=== PATIENT | male | born 2000 | race Caucasian/White ===

== ENCOUNTER 2023-02-23 19:51 | Inpatient (IN) | payer BC, SELFPAY ==
[2023-02-23 20:02] VITALS: BP 140/92; PULSE 83; RESP 16; TEMP 36.8; O2SAT 98; BMI 26.5
--- NOTE | 2023-02-23 20:14 | ED.GENADULT ---
HPI - General Adult General Chief complaint: Psychiatric Symptoms Stated complaint: psych eval Time Seen by Provider: 02/23/23 20:14 Source: patient and family (patient's parents) Mode of arrival: ambulatory Limitations: no limitations History of Present Illness HPI narrative: Patient is a 22 year old assigned male at with a history of previously diagnosed ADHD and anxiety presenting to the emergency department today with inability to sleep and new hallucinations. Patient states that over the last few months he has had significantly more hallucinations and has not been able to sleep at all. Patient's parents state that the patient has been experiencing episodes of very high highs and very low lows. Patient's parents state that the patient has previously had prozac and concerta but neither of those helped him. Patient denies any SI/HI, dizziness, lightheadedness, abdominal pain, nausea, vomiting, fever, chills, blurry vision, double vision, loss of vision, chest pain, difficulty breathing, shortness of breath, back pain, night sweats, pain with urination, increased urinary frequency, increased urinary urgency, blood in his urine or stool, syncope or a near syncopal episode, recent trauma or falls, bowel incontinence, bladder incontinence, bowel retention, bladder retention, or any other complaints at this time. Onset (ago): month(s) Relieving factors: none Exacerbating factors: none Associated symptoms: denies other symptoms Treatments prior to arrival: none Related Data Allergies Allergy/AdvReac Type Severity Reaction Status Date / Time No Known Allergies Allergy Unverified 05/25/20 17:19 Review of Systems Constitutional: Constitutional: Reports no additional constitutional complaints, Denies chills, Denies fever(s) and Denies night sweats Eyes: Eyes: Reports no additional eye complaints, Denies blurry vision, Denies change in vision, Denies diplopia, Denies eye discharge, Denies loss of vision and Denies eye pain ENT: Denies dizziness Cardiovascular: Cardiovascular: Reports no additional cardiovascular complaints, Denies chest pain, Denies lightheadedness, Denies Loss of Consciousness and Denies dyspnea Respiratory: Respiratory: Reports no additional respiratory complaints and Denies dyspnea Gastrointestinal: Gastrointestinal: Reports no additional gastrointestinal complaints, Denies abdominal pain, Denies melena, Denies hematochezia, Denies change in bowel habits and Denies change in stool character Genitourinary: Genitourinary: Reports no additional male genitourinary complaints, Denies hematuria, Denies oliguria, Denies difficulty urinating, Denies dysuria, Denies urinary frequency, Denies urinary hesitancy, Denies urinary incontinence and Denies urinary urgency Musculoskeletal: Musculoskeletal: Reports no additional musculoskeletal complaints, Denies numbness and Denies tingling Neurologic: Denies dizziness, Denies loss of vision, Denies numbness and Denies tingling Psychiatric: Psychiatric: Reports no additional psychiatric complaints, Reports abnormal sleep pattern, Reports anxiety, Reports difficulty concentrating, Reports auditory hallucinations, Reports mood swings, Reports visual hallucinations, Denies homicidal ideation and Denies suicidal ideation Endocrine: Endocrine: Reports no additional endocrine complaints Hematologic/Lymphatic: Hematologic/Lymphatic: Reports no additional hematologic/lymphatic complaints Allergic/Immunologic: Allergic/Immunologic: Reports no additional allergic/immunologic complaints PMFSH Past Medical History Attestation statement: The following information was validated with the patient. (all information validated with the patient's parents) Source: old records reviewed, obtained from family (patient's parents) and nursing notes reviewed Social History Social History Alcohol intake: never Smoked in Last 30 Days: No Use of substances other than those prescribed or required for medical reasons: No Advance Directives: No Advance Directives Information Provided: No Physical Exam ED Vital Signs: Vital Signs - 24 hr 02/23/23 20:02 Temperature 98.3 F Pulse Rate 83 Respiratory Rate 16 Blood Pressure 140/92 H Pulse Oximetry 98 Oxygen Delivery Method Room Air BMI result Body Mass Index 26.5 Const General: cooperative, no acute distress, alert and awake Nutritional Appearance: well nourished Orientation/consciousness: patient oriented x3 Limitations: no limitations [facility] Head: Yes normal to inspection and Yes atraumatic Ears: hearing grossly normal bilaterally and external ears normal General nose exam: Normal external nose present, no nasal discharge noted and no epistaxis Face and sinus: Yes normal facial exam, No abrasion and No laceration Mouth: Normal oral and palatal mucosa present, no drooling and no muffled voice Eyes General: appearance normal, both eyes and all related structures Periorbital: periorbital findings normal Eyelids: Yes eyelids normal Conjunctivae: conjunctivae normal Pupils: Equal, round and reactive pupils present EOM: EOMs intact bilaterally Neck Neck: Yes normal visual inspection, Yes full ROM and Yes no lymphadenopathy Chest Chest palpation & inspection: normal inspection of the chest Resp Effort & Inspection: normal respiratory effort and able to speak in complete sentences GI Inspection: Yes normal to inspection Neuro General: patient oriented x3 and moves all extremities Cranial nerves: Yes Equal, round and reactive pupils present Cognition (Neuro): normal cognition Motor exam (neuro): 5/5 motor strength present throughout Sensory Exam: Normal double simultaneous stimulation for sensation Coordination: [id number] test normal Extrem General: Yes normal to inspection, Yes full ROM and Yes capillary refill normal Psych Appearance: grossly normal Mental Status: mental status grossly normal Affect: normal affect Attitude: cooperative Thought process: Normal thought process present Thought content: Normal thought content present Insight: Good insight present (Psych) Medical Decision Making Medical Decision Making MDM Narrative: Patient is a 22 year old assigned male at with a history of anxiety and ADHD presenting to the emergency department today with new onset hallucinations. Patient's physical exam was as noted in the physical exam portion of this chart. Patient's blood work was unremarkable. Patient's EKG was unremarkable. I explained my physical exam findings as well as all test results to the patient. I answered all questions asked by the patient. Patient is currently awaiting CARE team evaluation. Differential Diagnosis Differential Diagnoses: The differential diagnosis associated with the presentation includes bipolar disorder, psychosis Admission/Observation Consideration of admission/observation: Escalation of care including admission/observation considered Patient's admission or lack there of will be determined after CARE team evaluates him. Lab Data [facility] Lab Attestation statement: I reviewed the patient's lab results. My interpretation of these studies and their corresponding values is that they are grossly normal. 02/23/23 20:37 02/23/23 20:37 Labs: Lab Results 02/23/23 02/23/23 02/23/23 Range/Units 20:37 20:37 20:37 WBC 8.7 (4.8-10.8) X10*3/uL RBC 5.88 H (4.60-5.80) X10*6/uL Hgb 14.4 (14.0-18.0) g/dl Hct 41.2 L (42.0-52.0) % MCV 70.1 L (80.0-98.0) fL MCH 24.5 L (27.0-33.0) pg MCHC 35.0 (31.0-36.0) g/dl RDW 13.9 (11.0-16.0) % Plt Count 366 (160-400) X10*3/uL MPV 9.5 (9.4-12.4) fL Immature Gran % (Auto) 0.2 (0.0-0.4) % Neut % (Auto) 64.1 (45-73) % Lymph % (Auto) 27.1 (20-40) % [place] % (Auto) 6.6 (2-11) % Eos % (Auto) 1.0 (0-4) % Baso % (Auto) 1.0 (0-2) % Lymph # (Auto) 2.3 (1.2-4.9) X10*3/uL [place] # (Auto) 0.6 (0.1-1.2) X10*3/uL Eos # (Auto) 0.1 (0.0-0.4) X10*3/uL Baso # (Auto) 0.1 (0.0-0.2) X10*3/uL Abs Immat Gran (auto) 0.02 (0.00-0.03) X10*3/uL Absolute Neuts (auto) 5.5 (2.0-8.3) x10*3/uL Absolute Nucleated RBC 0.000 (0.0-0.012) X10*3/uL Nucleated RBC % (auto) 0.0 (0.0-0.2) /100WBC Sodium 140 (135-145) mmol/L Potassium 3.7 (3.3-5.1) mmol/L Chloride 106 (96-108) mmol/L Carbon Dioxide 23 (22-29) mmol/L Anion Gap 15 (12-20) BUN 9 (9-16) mg/dL Creatinine 0.86 (0.5-1.4) mg/dL Estim Creat Clear Calc 122.6 Estimated GFR > 60 Random Glucose 93 (60-115) mg/dL Calcium 10.0 (8.4-10.2) mg/dL Total Bilirubin 0.8 (0.0-1.0) mg/dL AST 21 (5-37) U/L ALT 18 (0-40) U/L Alkaline Phosphatase 80 (39-117) U/L Total Protein 7.7 (6.5-8.0) g/dL Albumin 4.6 (3.5-5.0) g/dL Urine Color Urine Appearance Urine pH (5.0-9.0) Ur Specific [place] (1.005-1.025) Urine Protein (Neg-Trace) mg/dL Urine Glucose (UA) (Negative) mg/dL Urine Ketones (Negative) mg/dL Urine Blood (Negative) Urine Nitrite (Negative) Ur Leukocyte Esterase (Negative) Salicylates < 5.0 L (15-30) mg/dL Urine Opiates Screen (Not Detect) Urine Fentanyl Screen (Not Detect) Acetaminophen < 17 (<30) mcg/mL Ur Barbiturates Screen (Not Detect) Ur Phencyclidine Scrn (Not Detect) Ur Amphetamines Screen (Not Detect) U Benzodiazepines Scrn (Not Detect) Urine Cocaine Screen (Not Detect) U Marijuana (THC) Screen (Not Detect) Ethyl Alcohol < 10 mg/dL 02/23/23 02/23/23 Range/Units 22:38 22:38 WBC (4.8-10.8) X10*3/uL RBC (4.60-5.80) X10*6/uL Hgb (14.0-18.0) g/dl Hct (42.0-52.0) % MCV (80.0-98.0) fL MCH (27.0-33.0) pg MCHC (31.0-36.0) g/dl RDW (11.0-16.0) % Plt Count (160-400) X10*3/uL MPV (9.4-12.4) fL Immature Gran % (Auto) (0.0-0.4) % Neut % (Auto) (45-73) % Lymph % (Auto) (20-40) % [place] % (Auto) (2-11) % Eos % (Auto) (0-4) % Baso % (Auto) (0-2) % Lymph # (Auto) (1.2-4.9) X10*3/uL [place] # (Auto) (0.1-1.2) X10*3/uL Eos # (Auto) (0.0-0.4) X10*3/uL Baso # (Auto) (0.0-0.2) X10*3/uL Abs Immat Gran (auto) (0.00-0.03) X10*3/uL Absolute Neuts (auto) (2.0-8.3) x10*3/uL Absolute Nucleated RBC (0.0-0.012) X10*3/uL Nucleated RBC % (auto) (0.0-0.2) /100WBC Sodium (135-145) mmol/L Potassium (3.3-5.1) mmol/L Chloride (96-108) mmol/L Carbon Dioxide (22-29) mmol/L Anion Gap (12-20) BUN (9-16) mg/dL Creatinine (0.5-1.4) mg/dL Estim Creat Clear Calc Estimated GFR Random Glucose (60-115) mg/dL Calcium (8.4-10.2) mg/dL Total Bilirubin (0.0-1.0) mg/dL AST (5-37) U/L ALT (0-40) U/L Alkaline Phosphatase (39-117) U/L Total Protein (6.5-8.0) g/dL Albumin (3.5-5.0) g/dL Urine Color Yellow Urine Appearance Clear Urine pH 5.5 (5.0-9.0) Ur Specific [place] 1.025 (1.005-1.025) Urine Protein Negative (Neg-Trace) mg/dL Urine Glucose (UA) Negative (Negative) mg/dL Urine Ketones Negative (Negative) mg/dL Urine Blood Negative (Negative) Urine Nitrite Negative (Negative) Ur Leukocyte Esterase Negative (Negative) Salicylates (15-30) mg/dL Urine Opiates Screen Not Detected (Not Detect) Urine Fentanyl Screen Not Detected (Not Detect) Acetaminophen (<30) mcg/mL Ur Barbiturates Screen Not Detected (Not Detect) Ur Phencyclidine Scrn Not Detected (Not Detect) Ur Amphetamines Screen Not Detected (Not Detect) U Benzodiazepines Scrn Not Detected (Not Detect) Urine Cocaine Screen Not Detected (Not Detect) U Marijuana (THC) Screen Not Detected (Not Detect) Ethyl Alcohol mg/dL Independent Interpretation I performed an independent interpretation of an: EKG Interpretation: Vent. Rate: 062 BPM ? ? Atrial Rate: 062 BPM P-R Int: 156 ms? QRS Dur: 086 ms QT Int: 398 ms ? ? ? P-R-T Axes: 064 057 031 degrees QTc Int: 403 ms ? Normal sinus rhythm ST elevation, consider early repolarization Borderline ECG No previous ECGs available DD/ [id number] Independent Historian Clinical information obtained from an independent historian. History obtained from or confirmed by: Parent (patient's parents provided additional history and confirmed the history provided by the patient) Critical Care Time Critical Care Time Critical Care Time: Yes Total Critical Care Time: 30 Attestation: I spent 30 minutes of Critical Care Time with this patient. This does not include time spent on separately reported billable procedures. Discharge Plan Discharge Clinical Impression: Acute psychosis Patient Disposition: Still a Patient Interventions: [place]-Suicide Risk Severity Scale Last Done: 02/23/23 21:33
--- OUTSIDE RECORDS SUMMARY | 2023-02-23 20:32 | XMS_ITS | Continuity of Care Document ---
Author Name Unknown Organization [facility] Address [address] [place] [id number]- Care Team Providers Care Assistant Professor Of Nursing Name Role Phone Tammy Emanuel MD Primary Care Physician [phone] Encounter [facility] Date(s): 06/17/22 - 07/17/[address] [address]- Attending Physician: Admtr, Lauren Admitting Physician: Admtr, Ar8 Referring Physician: Admtr, Ar8 Allergies, Adverse Reactions, Alerts No Known Allergies Medications Advil PM 2 tablet, By Mouth, Daily at bedtime, PRN as needed for insomnia, 0 Refills, Maintenance, 07/12/19 13:11:55 EST Start Date: 07/12/19 Status: Ordered Concerta 36 mg oral tablet, extended release 1 tablet = 36 mg, By Mouth, Daily in AM, # 30 tablet, 0 Refills, Maintenance, 08/12/19 10:41:47 EST, ER Tablet, 165, cm, 07/26/19 12:52:44 EST, Height, 73.3, kg, 01/30/18 11:53:15 EDT, Dry Weight Start Date: 08/12/19 Status: Ordered FLUoxetine 10 mg oral tablet 1 tablet = 10 mg, By Mouth, Daily, Take with 20mg tab for total dose of 30mg daily, # 30 tablet, 0 Refills, Maintenance, 08/12/19 9:15:25 EST, Tablet, 165, cm, 07/26/19 12:52:44 EST, Height, 73.3, kg, 01/30/18 11:53:15 EDT, Dry Weight Start Date: 08/12/19 Status: Ordered FLUoxetine 20 mg oral tablet 1 tablet = 20 mg, By Mouth, Daily, take with 10mg tab for total dose of 30mg, # 30 tablet, 0 Refills, Maintenance, 08/12/19 9:17:50 EST, 165, cm, 07/26/19 12:52:44 EST, Height, 73.3, kg, 01/30/18 11:53:15 EDT, Dry Weight Start Date: 08/12/19 Status: Ordered Melatonin 5 mg oral tablet 1 tablet = 5 mg, By Mouth, Daily at bedtime, PRN for insomnia, # 60 tablet, 0 Refills, Maintenance,07/12/19 13:11:30 EST, Tablet Start Date: 07/12/19 Status: Ordered Patient Care team information Care Team Personnel Name: Jenae SOLORIO, Tammy Hutchinson Position: [facility] General Pediatrics MD Member Role: PCP Address: Address: [address] [place] [address] Pediatrics, [place] [address]- Care Team Related Persons Name: LUIZ RANDOLPH Address: home [address] [place] [id number] Name: LUIS CARLOS RANDOLPH Address: home [address] [place] [id number]
--- OUTSIDE RECORDS SUMMARY | 2023-02-23 20:32 | XMS_ITS | Continuity of Care Document ---
Author Name Unknown Organization [facility] Address [address] [place] [id number]- Care Team Providers Care Industrial Machinery Mechanic Name Role Phone Jenae SOLORIO, Tammy Hutchinson Primary Care Physician Encounter [facility] ACCT R [id number] Date(s): 08/24/19 - 09/29/[address] [address]- [facility] Attending Physician: Dylon Gonzales MD Admitting Physician: Dylon Gonzales MD Referring Physician: Harinder Gonzales MD Allergies, Adverse Reactions, Alerts Substance Reaction Severity Status NKA Active Medications Advil PM 2 tablet, By Mouth, [...]
--- OUTSIDE RECORDS SUMMARY | 2023-02-23 20:32 | XMS_ITS | Continuity of Care Document ---
Author Name Unknown Organization [facility] ion Address [address] [place] [address]- Care Team Providers Care Co Op Name Role Phone Tammy Emanuel MD Primary Care Physician Encounter [facility] Date(s): 08/02/22 - 09/01/[address] [address] Attending Physician: Admrosanna, Lauren Admitting Physician: Admtr, Ar8 Referring Physician: [...] Personnel Name: Jenae SOLORIO, Tammy Hutchinson Position: [facility] General Pediatrics MD Member Role: PCP Address: Address: [address] [place] [address] Pediatrics, [place] [address]- Care Team Related Persons Name: LUIZ RANDOLPH Address: home [address] [place] [id number] Name: LUIS CARLOS RANDOLPH Address: home [address] [place] [id number]
[2023-02-23 20:41] LABS: MANUAL DIFF FLAG NO
[2023-02-23 20:43] LABS: Basophils Absolute Auto 0.1 X10*3/uL (0.0-0.2); Eosinophils Absolute Auto 0.1 X10*3/uL (0.0-0.4); Hematocrit 41.2 % (42.0-52.0); Hemoglobin 14.4 g/dl (14.0-18.0); Imm Gran Abs Auto 0.02 X10*3/uL (0.00-0.03); Imm Gran Pct Auto 0.2 % (0.0-0.4); Lymphocytes Absolute Auto 2.3 X10*3/uL (1.2-4.9); Lymphocytes Percent Auto 27.1 % (20-40); Mean Corpuscular Hemoglobin 24.5 pg (27.0-33.0); Mean Corpuscular Volume 70.1 fL (80.0-98.0); Mean Platelet Volume 9.5 fL (9.4-12.4); Monocytes Absolute Auto 0.6 X10*3/uL (0.1-1.2); Monocytes Percent Auto 6.6 % (2-11); Neutrophils Absolute Auto 5.5 x10*3/uL (2.0-8.3); Neutrophils Percent Auto 64.1 % (45-73); Platelet Count 366 X10*3/uL (160-400); Red Blood Count 5.88 X10*6/uL (4.60-5.80); Red Cell Distribution Width 13.9 % (11.0-16.0); White Blood Count 8.7 X10*3/uL (4.8-10.8)
[2023-02-23 21:11] LABS: Alanine Aminotransferase 18 U/L (0-40); Albumin Level 4.6 g/dL (3.5-5.0); Alkaline Phosphatase 80 U/L (39-117); Anion Gap 15 (12-20); Aspartate Amino Transferase 21 U/L (5-37); Bilirubin Total 0.8 mg/dL (0.0-1.0); Blood Urea Nitrogen 9 mg/dL (9-16); Carbon Dioxide 23 mmol/L (22-29); Chloride 106 mmol/L (96-108); Creatinine Clr Calc Pharmacy 122.6; Estimated Glomerular Filt Rate > 60; Glucose Random 93 mg/dL (60-115); Potassium 3.7 mmol/L (3.3-5.1); Sodium 140 mmol/L (135-145); Total Protein 7.7 g/dL (6.5-8.0)
[2023-02-23 21:17] LABS: Acetaminophen LAB < 17 mcg/mL (<30); Ethanol < 10 mg/dL; Salicylate < 5.0 mg/dL (15-30)
--- NOTE | 2023-02-23 21:18 | ECG_ITS ---
Test Reason : med clearance Blood Pressure : / mmHG Vent. Rate : 062 BPM Atrial Rate : 062 BPM P-R Int : 156 ms QRS Dur : 086 ms QT Int : 398 ms P-R-T Axes : 064 057 031 degrees QTc Int : 403 ms Normal sinus rhythm ST elevation, consider early repolarization Borderline ECG No previous ECGs available Referred By: Vanessa Sanchez Electronically Signed By:DALLAS RENDON
[2023-02-23 22:46] LABS: Appearance Urine Clear; Color Urine Yellow; Glucose Urine UA Negative (Negative); Leukocyte Esterase Urine Negative (Negative); Nitrite Urine Negative (Negative); PH 5.5 (5.0-9.0); Specific Gravity - Urine 1.025 (1.005-1.025); Urine Blood Negative (Negative); Urine Ketones Negative (Negative); Urine Protein Negative (Neg-Trace)
[2023-02-23 22:56] LABS: Amphetamine Screen Urine Not Detected (Not Detect); Barbiturates, Urine Not Detected (Not Detect); Benzodiazepines Screen Urine Not Detected (Not Detect); Cannabinoid Screen Urine Not Detected (Not Detect); Cocaine Screen Urine Not Detected (Not Detect); Fentanyl, urine Not Detected (Not Detect); Opiate Screen Urine Not Detected (Not Detect); Phencyclidine Screen Urine Not Detected (Not Detect)
[2023-02-24 02:56] VITALS: BP 144/95; PULSE 72; TEMP 36.5; O2SAT 99
[2023-02-24 06:00] VITALS: BP 108/67; PULSE 66; RESP 16; TEMP 36.8; O2SAT 97
[2023-02-24 07:13] VITALS: BP 155/86; PULSE 95; RESP 14; TEMP 36.4; O2SAT 96
--- NOTE | 2023-02-24 07:53 | PHA.MEDREC ---
Pharmacy Consult ? Medication Reconciliation Pharmacy has completed the medication reconciliation. completed by rn reviewed by pharmacy kalyn
[2023-02-24] MEDS: FLUoxetine HCl 20 MG CAPSULE PO (09:15)
[2023-02-24 12:06] LABS: COVID-19 Test Negative (Negative); IDNOW Serial# 08D9AD1C
[2023-02-24 12:30] LABS: Iron 71 mcg/dL (45-160); Percent Iron Saturation 19 % (15-50); Total Iron Binding Capacity 381 mcg/dL (228-428); Unsaturated Iron Binding 310 ug/dL
[2023-02-24 12:57] LABS: Folate 16.2 ng/mL (> or = 4.0); Vitamin B12 1244 pg/mL (200-900)
--- NOTE | 2023-02-24 14:29 | MHC.CARE ---
Pt seen by CARE team and was found to meet inpatient level of care.
[2023-02-24 14:47] VITALS: BP 129/88; PULSE 83; RESP 12; O2SAT 96
[2023-02-24 16:32] VITALS: BP 157/94; PULSE 74; TEMP 36.6; O2SAT 97
--- NOTE | 2023-02-24 17:24 | PC.ADMIT ---
Pt is a 22 year old male presenting to [facility] ED after self presenting with parents. Pt reporting anxiety, panic attacks, racing thoughts, AH/VH. Pt reports prior diagnoses of bipolar disorder, depression, anxiety, ADHD. Pt is looking to get a proper diagnosis for what is going on. Pt states his body feels fine but his head mentally feels off. Pt UTOX negative and COVID negative. Pt wears a cochlear implant on the left side. Pt reports a history of past SI attempts back in 8th or 9th grade. Pt presents as calm, cooperative and pleasant, but a little confused. Pt is anxious and depressed. Pt is on 15 minute checks. Pt reports feeling safe on the unit and can come to staff for help if needed. Provider aware of admission, orders are placed. Begin treatment plan and monitor for safety.
[2023-02-25] MEDS: hydrOXYzine HCL 25 MG TABLET PO (05:28)
[2023-02-25 09:04] LABS: Estimated Average Glucose 88 mg/dL; Hemoglobin A1c % 4.7 %
[2023-02-25 09:23] VITALS: BP 145/92; PULSE 97; TEMP 36.7; O2SAT 96
[2023-02-25 09:28] LABS: Alanine Aminotransferase 17 U/L (0-40); Albumin Level 4.3 g/dL (3.5-5.0); Alkaline Phosphatase 76 U/L (39-117); Anion Gap 11 (12-20); Aspartate Amino Transferase 18 U/L (5-37); Bilirubin Total 0.6 mg/dL (0.0-1.0); Blood Urea Nitrogen 9 mg/dL (9-16); Calcium 9.5 mg/dL (8.4-10.2); Carbon Dioxide 26 mmol/L (22-29); Chloride 106 mmol/L (96-108); Cholesterol 136 mg/dL; Creatinine Clr Calc Pharmacy 128.5; Estimated Glomerular Filt Rate > 60; Glucose Fasting 90 mg/dL (60-99); HDL Cholesterol 46 mg/dL; LDL Cholesterol Calculated 80 mg/dl; Potassium 4.3 mmol/L (3.3-5.1); Sodium 139 mmol/L (135-145); Total Protein 7.2 g/dL (6.5-8.0); Triglycerides 51 mg/dL
[2023-02-25 09:43] LABS: Free T4 (Free Thyroxine) 1.25 ng/dL (0.71-1.85); Thyroid Stimulating Hormone 1.35 uIU/mL (0.32-4.0)
--- NOTE | 2023-02-25 09:47 | P.HPPS_ITS ---
HPI Date of Service: 02/25/23 Chief Complaint: Psychosis Sources of Information: patient interviewed, chart reviewed and crisis/core team assessment reviewed Additional Sources of Information: Elena [phone] HPI Subjective Notes: Rodriguez Warning (shows understanding) and Conditional Voluntary Narrative: Mr. Baeza is a 22 year-old male who was brought to [facility] by parents as pt has not been sleeping for several weeks, reporting hearing voices, preoccupied with christianity themes and reporting he has received messages from [employer]. In the ED, his utox is negative. On the unit, pt presents as cooperative. Pt's initially kept repeating, it's okay now, I'm fine, I presented the case to them, and they agree, is not devil who is in charge, is Dot. When asked to elaborate, pt needed redirection to stay on track. Pt reports around December 31 he has been receiving messages from [employer] He also reports he was hearing voices from demons who were confusing him. He reports last night he almost and this was a test. He reports his brain shut off and his heart stopped beating. He also reports back pain which he thinks is also part of [employer]'s message. He reports he has to baptize as Jehovah witness and all evil and the devil will . He states [employer] anointed him savior. He denies suicidal or homicidal ideation. When asked directly he denies hearing voices but appears internally preoccupied. He denies hx of suicide attempts. Past Psychiatric History: Inpatient: none OP: none Past medication trials: ritalin and prozac, no prior tx for psychosis as this is first time. Hx of suicide attempt: denies Medical Evaluation Reviewed: Yes [facility] Family History: maternal hx of bipolar and paternal hx of schizophrenia. Social History: Pt lives with parents. He works 3rd shift. Finished HS. Substance History: Denies Trauma History: denies Diagnostics Vital Signs (24Hr): Vital Signs - 24 hr 02/24/23 14:47 02/24/23 16:32 02/25/23 09:23 Temperature 97.9 F 98.1 F Pulse Rate 83 74 97 Respiratory Rate 12 Blood Pressure 129/88 157/94 H 145/92 H Pulse Oximetry 96 97 96 Oxygen Delivery Method Room Air Room Air Room Air BMI result Body Mass Index 26.5 Labs 02/23/23 20:37 02/25/23 08:43 Labs: Laboratory Results - last 48 hr 02/23/23 02/23/23 02/23/23 20:37 20:37 20:37 WBC 8.7 RBC 5.88 H Hgb 14.4 Hct 41.2 L MCV 70.1 L MCH 24.5 L MCHC 35.0 RDW 13.9 Plt Count 366 MPV 9.5 Immature Gran % (Auto) 0.2 Neut % (Auto) 64.1 Lymph % (Auto) 27.1 Trinity % (Auto) 6.6 Eos % (Auto) 1.0 Baso % (Auto) 1.0 Lymph # (Auto) 2.3 Trinity # (Auto) 0.6 Eos # (Auto) 0.1 Baso # (Auto) 0.1 Abs Immat Gran (auto) 0.02 Absolute Neuts (auto) 5.5 Absolute Nucleated RBC 0.000 Nucleated RBC % (auto) 0.0 Sodium 140 Potassium 3.7 Chloride 106 Carbon Dioxide 23 Anion Gap 15 BUN 9 Creatinine 0.86 Estim Creat Clear Calc 122.6 Estimated GFR > 60 Random Glucose 93 Fasting Glucose Estimat Average Glucose Hemoglobin A1c % Calcium 10.0 Iron TIBC % Saturation Unsat Iron Binding Total Bilirubin 0.8 AST 21 ALT 18 Alkaline Phosphatase 80 Total Protein 7.7 Albumin 4.6 Triglycerides Cholesterol LDL Cholesterol, Calc HDL Cholesterol Vitamin B12 Folate TSH Free T4 Urine Color Urine Appearance Urine pH Ur Specific [place] Urine Protein Urine Glucose (UA) Urine Ketones Urine Blood Urine Nitrite Ur Leukocyte Esterase Salicylates < 5.0 L Urine Opiates Screen Urine Fentanyl Screen Acetaminophen < 17 Ur Barbiturates Screen Ur Phencyclidine Scrn Ur Amphetamines Screen U Benzodiazepines Scrn Urine Cocaine Screen U Marijuana (THC) Screen Ethyl Alcohol < 10 COVID-19 ([facility]) COVID-19 Clin Com 02/23/23 02/23/23 02/24/23 22:38 22:38 11:32 WBC RBC Hgb Hct MCV MCH MCHC RDW Plt Count MPV Immature Gran % (Auto) Neut % (Auto) Lymph % (Auto) Trinity % (Auto) Eos % (Auto) Baso % (Auto) Lymph # (Auto) Trinity # (Auto) Eos # (Auto) Baso # (Auto) Abs Immat Gran (auto) Absolute Neuts (auto) Absolute Nucleated RBC Nucleated RBC % (auto) Sodium Potassium Chloride Carbon Dioxide Anion Gap BUN Creatinine Estim Creat Clear Calc Estimated GFR Random Glucose Fasting Glucose Estimat Average Glucose Hemoglobin A1c % Calcium Iron TIBC % Saturation Unsat Iron Binding Total Bilirubin AST ALT Alkaline Phosphatase Total Protein Albumin Triglycerides Cholesterol LDL Cholesterol, Calc HDL Cholesterol Vitamin B12 Folate TSH Free T4 Urine Color Yellow Urine Appearance Clear Urine pH 5.5 Ur Specific [place] 1.025 Urine Protein Negative Urine Glucose (UA) Negative Urine Ketones Negative Urine Blood Negative Urine Nitrite Negative Ur Leukocyte Esterase Negative Salicylates Urine Opiates Screen Not Detected Urine Fentanyl Screen Not Detected Acetaminophen Ur Barbiturates Screen Not Detected Ur Phencyclidine Scrn Not Detected Ur Amphetamines Screen Not Detected U Benzodiazepines Scrn Not Detected Urine Cocaine Screen Not Detected U Marijuana (THC) Screen Not Detected Ethyl Alcohol COVID-19 ([facility]ARJIT) Negative COVID-[employer] Com See Note 02/24/23 02/24/23 02/25/23 11:50 11:50 08:43 WBC RBC Hgb Hct MCV MCH MCHC RDW Plt Count MPV Immature Gran % (Auto) Neut % (Auto) Lymph % (Auto) Trinity % (Auto) Eos % (Auto) Baso % (Auto) Lymph # (Auto) Trinity # (Auto) Eos # (Auto) Baso # (Auto) Abs Immat Gran (auto) Absolute Neuts (auto) Absolute Nucleated RBC Nucleated RBC % (auto) Sodium 139 Potassium 4.3 Chloride 106 Carbon Dioxide 26 Anion Gap 11 L BUN 9 Creatinine 0.82 Estim Creat Clear Calc 128.5 Estimated GFR > 60 Random Glucose Fasting Glucose 90 Estimat Average Glucose Hemoglobin A1c % Calcium 9.5 Iron 71 TIBC 381 % Saturation 19 Unsat Iron Binding 310 Total Bilirubin 0.6 AST 18 ALT 17 Alkaline Phosphatase 76 Total Protein 7.2 Albumin 4.3 Triglycerides 51 Cholesterol 136 LDL Cholesterol, Calc 80 HDL Cholesterol 46 Vitamin B12 1244 H Folate 16.2 TSH 1.20 1.35 Free T4 1.25 Urine Color Urine Appearance Urine pH Ur Specific [place] Urine Protein Urine Glucose (UA) Urine Ketones Urine Blood Urine Nitrite Ur Leukocyte Esterase Salicylates Urine Opiates Screen Urine Fentanyl Screen Acetaminophen Ur Barbiturates Screen Ur Phencyclidine Scrn Ur Amphetamines Screen U Benzodiazepines Scrn Urine Cocaine Screen U Marijuana (THC) Screen Ethyl Alcohol COVID-19 ([facility]ARJIT) COVID-19 [place] 02/25/23 08:43 WBC RBC Hgb Hct MCV MCH MCHC RDW Plt Count MPV Immature Gran % (Auto) Neut % (Auto) Lymph % (Auto) Trinity % (Auto) Eos % (Auto) Baso % (Auto) Lymph # (Auto) Trinity # (Auto) Eos # (Auto) Baso # (Auto) Abs Immat Gran (auto) Absolute Neuts (auto) Absolute Nucleated RBC Nucleated RBC % (auto) Sodium Potassium Chloride Carbon Dioxide Anion Gap BUN Creatinine Estim Creat Clear Calc Estimated GFR Random Glucose Fasting Glucose Estimat Average Glucose 88 Hemoglobin A1c % 4.7 Calcium Iron TIBC % Saturation Unsat Iron Binding Total Bilirubin AST ALT Alkaline Phosphatase Total Protein Albumin Triglycerides Cholesterol LDL Cholesterol, Calc HDL Cholesterol Vitamin B12 Folate TSH Free T4 Urine Color Urine Appearance Urine pH Ur Specific [place] Urine Protein Urine Glucose (UA) Urine Ketones Urine Blood Urine Nitrite Ur Leukocyte Esterase Salicylates Urine Opiates Screen Urine Fentanyl Screen Acetaminophen Ur Barbiturates Screen Ur Phencyclidine Scrn Ur Amphetamines Screen U Benzodiazepines Scrn Urine Cocaine Screen U Marijuana (THC) Screen Ethyl Alcohol COVID-19 ([facility]ARJIT) COVID-19 [email or web address] Com Meds/Allergies Meds Home Medications Medication Instructions Recorded Confirmed Type fluoxetine 20 mg capsule 20 mg PO QAM 02/24/23 02/24/23 History Allergies Allergies Allergy/AdvReac Type Severity Reaction Status Date / Time No Known Allergies Allergy Unverified 05/25/20 17:19 Mental Status Exam Mental Status Exam Narrative: Appearance: casually groomed, fair hygiene, in NAD Behavior: cooperative Psychomotor: no agitation or retardation noted Speech: clear, normal rate/rhythm/volume, spontaneous TP: initially repetitive, after tangential TC: christianity preoccupation Mood: better AFfect: constricted SI: denies HI: denies Delusions: christianity delusions VH/AH: of Dot devidilcia Insight/judgment: poor x 2. Memory/cog: alert, oriented x 3. Assessment & Plan Assessment & Plan (1) Acute psychosis: Status: Acute Code(s): F23 - Brief psychotic disorder Plan Mr. Baeza is a 22 year-old male brought in to [facility] by parents as pt has been presenting as religiously preoccupied, not sleeping, acting bizarre way. In the ED, utox is negative. On the unit, pt continues to present with christianity preoccupation, internally preoccupied. Pending collateral information to get better sense if pt had prodromal symptoms of schizophrenia prior to this psychotic episode. We discussed risks, benefits and alternative treatment options. Pt agrees to start risperidone 1mg po BID. PLAN 1. Admit to M3, CV, 15 minutes checks for safety 2. Start risperidone 1mg po BID 3. due to poor sleep, racing thoughts s/s to delusional content, will add ativan 1mg po qhs. 4. Obtain collateral information 5. Aftercare planning. Patient educated on: diagnosis Informed Consent: understands Reason for continued inpatient stay Substantial Risk for: inability to function Statement Statement: I have reviewed the history and physical and performed a pertinent examination on my patient. No changes have occurred unless specified. If the History and Physical was not performed prior to admission, the Hospitalist's service will be consulted for completing the admission physical. Time Spent With Patient Time: Total time managing care of this patient today ____ minutes.
[2023-02-25 09:54] LABS: Folate 13.4 ng/mL (> or = 4.0); Vitamin B12 998 pg/mL (200-900)
[2023-02-25] MEDS: risperiDONE 1 MG TABLET PO ×2 (14:31→20:43)
[2023-02-25 20:41] VITALS: BP 117/58; PULSE 110; TEMP 36.7; O2SAT 95
[2023-02-25] MEDS: LORazepam 1 MG TABLET PO (20:43)
[2023-02-26 08:29] VITALS: BP 114/76; PULSE 107; TEMP 36.6; O2SAT 97
[2023-02-26] MEDS: risperiDONE 1 MG TABLET PO ×2 (09:17→20:55)
--- NOTE | 2023-02-26 12:37 | HO.PSYCHPN ---
Subjective Subjective Date of Service: 02/26/23 Reason For Visit: Psychosis Subjective Notes: Conditional Voluntary Interim History: Reviewed in team and with Dr. Duke. Patient presents with mormon delusional thought content. Patient stated, I and came back to life before I came here. The demons killed me, Dot brought me back. I don't hear his voice anymore but I still want to spread his word . He states he feel risperidone is helpful, however he continues to have racing thoughts, anxiety and depression. Patient stated, I want to have something that will help with the ups and downs in my mood . T/W discussed starting a mood stabilizer such as lithium. Risks/benefits discussed. Patient agreed to starting lithium. Patient denies SI/HI/VH/AH at this time. Medication Compliance: Yes Side effects from medications: No Attending Groups: Intermittent Review of Systems Constitutional: Reports no additional constitutional complaints, Denies chills, Denies fever(s) and Denies night sweats Eyes: Reports no additional eye complaints, Denies blurry vision, Denies change in vision, Denies diplopia, Denies eye discharge, Denies loss of vision and Denies eye pain Denies dizziness Cardiovascular: Reports no additional cardiovascular complaints, Denies chest pain, Denies lightheadedness, Denies Loss of Consciousness and Denies dyspnea Respiratory: Reports no additional respiratory complaints and Denies dyspnea Gastrointestinal: Reports no additional gastrointestinal complaints, Denies abdominal pain, Denies melena, Denies hematochezia, Denies change in bowel habits and Denies change in stool character Genitourinary: Reports no additional male genitourinary complaints, Denies hematuria, Denies oliguria, Denies difficulty urinating, Denies dysuria, Denies urinary frequency, Denies urinary hesitancy, Denies urinary incontinence and Denies urinary urgency Musculoskeletal: Reports no additional musculoskeletal complaints, Denies numbness and Denies tingling Denies dizziness, Denies loss of vision, Denies numbness and Denies tingling Psychiatric: Reports no additional psychiatric complaints, Reports abnormal sleep pattern, Reports anxiety, Reports difficulty concentrating, Reports auditory hallucinations, Reports mood swings, Reports visual hallucinations, Denies homicidal ideation and Denies suicidal ideation Endocrine: Reports no additional endocrine complaints Hematologic/Lymphatic: Reports no additional hematologic/lymphatic complaints Allergic/Immunologic: Reports no additional allergic/immunologic complaints Mental Status Exam Mental Status Exam Narrative: Pt is alert and oriented; behavior is cooperative, friendly and calm; patient is not in distress; dressed in casual attire; mood is described as okay and affect congruent; eye contact appropriate; Speech is normal rate, volume and prosody and not pressured; no psychomotor agitation/retardation present; thought process is organized and goal directed; Thought content is on tx; presents with mormon delusions; denies any SI/HI. There is no evidence of perceptual disturbance. Patients insight and judgment are poor. Diagnostics Vital Signs (24Hr): Vital Signs - 24 hr 02/25/23 20:41 02/26/23 08:29 Temperature 98.1 F 97.9 F Pulse Rate 110 H 107 H Blood Pressure 117/58 L 114/76 Pulse Oximetry 95 97 Oxygen Delivery Method Room Air Room Air BMI result Body Mass Index 26.5 Labs 02/23/23 20:37 02/25/23 08:43 Labs: Laboratory Results - last 48 hr 02/24/23 02/24/23 02/25/23 11:50 11:50 08:43 Sodium 139 Potassium 4.3 Chloride 106 Carbon Dioxide 26 Anion Gap 11 L BUN 9 Creatinine 0.82 Estim Creat Clear Calc 128.5 Estimated GFR > 60 Fasting Glucose 90 Estimat Average Glucose Hemoglobin A1c % Calcium 9.5 Total Bilirubin 0.6 AST 18 ALT 17 Alkaline Phosphatase 76 Total Protein 7.2 Albumin 4.3 Triglycerides 51 Cholesterol 136 LDL Cholesterol, Calc 80 HDL Cholesterol 46 Vitamin B12 1244 H Folate 16.2 TSH 1.20 1.35 Free T4 1.25 02/25/23 02/25/23 08:43 08:43 Sodium Potassium Chloride Carbon Dioxide Anion Gap BUN Creatinine Estim Creat Clear Calc Estimated GFR Fasting Glucose Estimat Average Glucose 88 Hemoglobin A1c % 4.7 Calcium Total Bilirubin AST ALT Alkaline Phosphatase Total Protein Albumin Triglycerides Cholesterol LDL Cholesterol, Calc HDL Cholesterol Vitamin B12 998 H Folate 13.4 TSH Free T4 Medications Medications Current Medications Acetaminophen (Acetaminophen 325 Mg Tablet) 650 mg PO Q6H PRN PRN Reason: Headache/Pain Mild Scale (1-3) Al Hydroxide/Mg Hydroxide (Magnesium Hydrox/Alum Hydrox 30 Ml Oral.Susp) 30 ml PO Q6H PRN PRN Reason: Heartburn/Nausea Hydroxyzine HCl (Hydroxyzine Hcl 25 Mg Tablet) 25 mg PO Q6H PRN PRN Reason: Anxiety Last Admin: 02/25/23 05:28 Dose: 25 mg Lorazepam (Lorazepam 1 Mg Tablet) 1 mg PO BEDTIME PIPPA Last Admin: 02/25/23 20:43 Dose: 1 mg Magnesium Hydroxide (Milk Of Magnesia 30 Ml Oral.Susp) 30 ml PO DAILY PRN PRN Reason: Constipation Nicotine Polacrilex (Nicotine Polacrilex 2 Mg Gum) 4 mg BUCCAL Q2H PRN PRN Reason: Nicotine Cravings Olanzapine (Olanzapine Odt 10 Mg Tab.Rapdis) 10 mg TRANSLINGU Q6H PRN PRN Reason: agitation Risperidone (Risperidone 1 Mg Tablet) 1 mg PO BID PIPPA Last Admin: 02/26/23 09:17 Dose: 1 mg Trazodone HCl (Trazodone Hcl 100 Mg Tablet) 100 mg PO BEDTIME PRN PRN Reason: Insomnia Allergies Allergies Allergy/AdvReac Type Severity Reaction Status Date / Time No Known Allergies Allergy Unverified 05/25/20 17:19 Assessment & Plan Assessment & Plan (1) Acute psychosis: Status: Acute Code(s): F23 - Brief psychotic disorder Plan Mr. Baeza is a 22 year-old male brought in to [facility] [place] ED by parents as pt has been presenting as religiously preoccupied, not sleeping, acting bizarre way. In the ED, utox is negative. On the unit, pt continues to present with mormon preoccupation, internally preoccupied. Pending collateral information to get better sense if pt had prodromal symptoms of schizophrenia prior to this psychotic episode. We discussed risks, benefits and alternative treatment options. Pt agrees to start risperidone 1mg po BID. PLAN: CV 15 minutes checks for safety risperidone 1mg po BID Ativan 1mg PO bedtime Start: lithium 300mg PO bid Hospital Course: 02/26: Patient calm and organized, continues to have racing thoughts. Presents with mormon delusional thought content. Believes he and came back to life. Would like something to help with the up and downs in my mood . He reports hx of days of not sleeping, excess spending, hypersexuality. T/W discussed starting a mood stabilizer such as lithium. Risks/benefits discussed. Patient agreed to starting lithium. Patient educated on: diagnosis, medication risk/benefits and therapeutic strategies Informed Consent: understands Reason for continued inpatient stay Substantial Risk for: med/psych decompensation Time Spent With Patient Time: Total time managing care of this patient today ____ minutes.
[2023-02-26] MEDS: OLANZapine ODT 10 MG TAB.RAPDIS TRANSLINGU (14:15)
[2023-02-26 19:45] VITALS: BP 116/60; PULSE 73; RESP 16; TEMP 36.6; O2SAT 97
[2023-02-26] MEDS: LORazepam 1 MG TABLET PO (20:56)
[2023-02-26] MEDS: Lithium Carbonate ER 300 MG TABLET.ER PO (20:56)
--- NOTE | 2023-02-27 06:34 | PC.NURSE ---
Angel approached the nursing station to request his bibles, strings are too long, he gave permission to cut strings down to 6 inches and have ends taped. Strings cut and bibles x 2 given to patient.
[2023-02-27 07:00] VITALS: BMI 28.0
[2023-02-27 08:30] VITALS: BP 118/68; PULSE 84; RESP 18; O2SAT 98
[2023-02-27] MEDS: Lithium Carbonate ER 300 MG TABLET.ER PO ×2 (08:39→20:47)
[2023-02-27] MEDS: risperiDONE 1 MG TABLET PO ×2 (08:40→20:48)
--- NOTE | 2023-02-27 10:23 | P.PNPSI_ITS ---
Subjective Subjective Date of Service: 02/27/23 Reason For Visit: Psychosis Subjective Notes: Conditional Voluntary Interim History: Reviewed in team and with Dr. Duke. Patient reports feeling good today. Patient stated, I'm having good anxiety that helps me focus on the thing I need to do . Patient continues to presents with buddhist delusional thought content. Patient reports he is keeping himself spiritually feed by reading the bible and praying . Patient denies any AH/VH. Patient states he knows I have to be here to help with my mind . Medication Compliance: Yes Side effects from medications: No Attending Groups: Yes Review of Systems Constitutional: Reports no additional constitutional complaints, Denies chills, Denies fever(s) and Denies night sweats Eyes: Reports no additional eye complaints, Denies blurry vision, Denies change in vision, Denies diplopia, Denies eye discharge and Denies eye pain Reports as per HPI Cardiovascular: Reports no additional cardiovascular complaints, Denies chest pain, Denies lightheadedness and Denies Loss of Consciousness Respiratory: Reports as per HPI Gastrointestinal: Reports no additional gastrointestinal complaints, Denies abdominal pain, Denies melena, Denies hematochezia, Denies change in bowel habits and Denies change in stool character Genitourinary: Reports as per HPI Musculoskeletal: Reports as per HPI Skin/Breast: Reports as per HPI Reports as per HPI Psychiatric: Reports no additional psychiatric complaints, Reports abnormal sleep pattern, Reports anxiety, Reports difficulty concentrating, Reports auditory hallucinations, Reports mood swings, Reports visual hallucinations, Denies homicidal ideation and Denies suicidal ideation Endocrine: Reports as per HPI Hematologic/Lymphatic: Reports as per HPI Allergic/Immunologic: Reports as per HPI Mental Status Exam Mental Status Exam Narrative: Pt is alert and oriented; behavior is cooperative, friendly and calm; patient is not in distress; dressed in casual attire; mood is described as good and affect congruent; eye contact appropriate; Speech is normal rate, volume and prosody and not pressured; no psychomotor agitation/retardation present; thought process is organized and goal directed; Thought content is on tx; presents with buddhist delusions; denies any SI/HI. There is no evidence of perceptual disturbance. Patients insight and judgment are poor. Diagnostics Vital Signs (24Hr): Vital Signs - 24 hr 02/26/23 19:45 Temperature 97.8 F Pulse Rate 73 Respiratory Rate 16 Blood Pressure 116/60 Pulse Oximetry 97 Oxygen Delivery Method Room Air BMI result Body Mass Index 26.5 Labs 02/23/23 20:37 02/25/23 08:43 Medications Medications Current Medications Acetaminophen (Acetaminophen 325 Mg Tablet) 650 mg PO Q6H PRN PRN Reason: Headache/Pain Mild Scale (1-3) Al Hydroxide/Mg Hydroxide (Magnesium Hydrox/Alum Hydrox 30 Ml Oral.Susp) 30 ml PO Q6H PRN PRN Reason: Heartburn/Nausea Hydroxyzine HCl (Hydroxyzine Hcl 25 Mg Tablet) 25 mg PO Q6H PRN PRN Reason: Anxiety Last Admin: 02/25/23 05:28 Dose: 25 mg Greer Carbonate (Greer Carbonate Er 300 Mg Tablet.Er) 300 mg PO BID [facility] Last Admin: 02/27/23 08:39 Dose: 300 mg Lorazepam (Lorazepam 1 Mg Tablet) 1 mg PO BEDTIME [facility] Last Admin: 02/26/23 20:56 Dose: 1 mg Magnesium Hydroxide (Milk Of Magnesia 30 Ml Oral.Susp) 30 ml PO DAILY PRN PRN Reason: Constipation Nicotine Polacrilex (Nicotine Polacrilex 2 Mg Gum) 4 mg BUCCAL Q2H PRN PRN Reason: Nicotine Cravings Olanzapine (Olanzapine Odt 10 Mg Tab.Rapdis) 10 mg TRANSLINGU Q6H PRN PRN Reason: agitation Last Admin: 02/26/23 14:15 Dose: 10 mg Risperidone (Risperidone 1 Mg Tablet) 1 mg PO BID [facility] Last Admin: 02/27/23 08:40 Dose: 1 mg Trazodone HCl (Trazodone Hcl 100 Mg Tablet) 100 mg PO BEDTIME PRN PRN Reason: Insomnia Allergies Allergies Allergy/AdvReac Type Severity Reaction Status Date / Time No Known Allergies Allergy Unverified 05/25/20 17:19 Assessment & Plan Assessment & Plan (1) Acute psychosis: Status: Acute Code(s): F23 - Brief psychotic disorder Plan Mr. Baeza is a 22 year-old male brought in to [facility] [place] by parents as pt has been presenting as religiously preoccupied, not sleeping, acting bizarre way. In the ED, utox is negative. On the unit, pt continues to present with buddhist preoccupation, internally preoccupied. Pending collateral information to get better sense if pt had prodromal symptoms of schizophrenia prior to this psychotic episode. We discussed risks, benefits and alternative treatment options. Pt agrees to start risperidone 1mg po BID. PLAN: CV 15 minutes checks for safety risperidone 1mg po BID Ativan 1mg PO bedtime lithium 300mg PO bid Hospital Course: 02/26: Patient calm and organized, continues to have racing thoughts. Presents with buddhist delusional thought content. Believes he and came back to life. Would like something to help with the up and downs in my mood . He reports hx of days of not sleeping, excess spending, hypersexuality. T/W discussed starting a mood stabilizer such as lithium. Risks/benefits discussed. Patient agreed to starting lithium. 02/27: Pt reports feeling good today. Continues with buddhist delusions. Denies AH/VH. Pt states he knows he needs help with his mind . Continue with current medication regimen. Patient educated on: diagnosis, medication risk/benefits and therapeutic strategies Informed Consent: understands Reason for continued inpatient stay Substantial Risk for: med/psych decompensation Time Spent With Patient Time: Total time managing care of this patient today ____ minutes.
[2023-02-27] MEDS: Sodium Chloride 0.65 % Nasal 44 ML SPRBTL 1 SPRAY NOSTRIL-B ×4 (13:09→21:37)
[2023-02-27 18:00] VITALS: BP 134/86; PULSE 65; RESP 16; TEMP 36.8; O2SAT 100
[2023-02-27] MEDS: LORazepam 1 MG TABLET PO (20:47)
[2023-02-28] MEDS: Sodium Chloride 0.65 % Nasal 44 ML SPRBTL 1 SPRAY NOSTRIL-B ×6 (05:38→20:28)
[2023-02-28 08:00] VITALS: BP 143/70; PULSE 107; RESP 18; TEMP 36.7; O2SAT 97
[2023-02-28] MEDS: Lithium Carbonate ER 300 MG TABLET.ER PO ×2 (08:52→20:09)
[2023-02-28] MEDS: risperiDONE 1 MG TABLET PO ×2 (08:53→20:09)
--- NOTE | 2023-02-28 13:40 | HO.PSYCHPN ---
Documented by User: Jackie Jarvis NP 02/28/23 13:50 Subjective Subjective Date of Service: 02/28/23 Reason For Visit: Psychosis Subjective Notes: Conditional Voluntary Interim History: Reviewed in team and with Dr. Duke. Patient reports feeling good today. Patient stated, I feel like if I continue with my medications I'll be ok. I don't want to have another psychiatric break. I feel like the medication is slowing me down. Patient continues to have some spiritism delusions. Patient stated, I could have but I could of also been in a deep sleep and I don't remember; or a vivid dream. I'm open to it being something else and not spiritism . Medication Compliance: Yes Side effects from medications: No Attending Groups: Yes Review of Systems Constitutional: Reports as per HPI Eyes: Reports as per HPI Reports as per HPI Cardiovascular: Reports as per HPI Respiratory: Reports as per HPI Gastrointestinal: Reports as per HPI Genitourinary: Reports as per HPI Musculoskeletal: Reports as per HPI Skin/Breast: Reports as per HPI Reports as per HPI Psychiatric: Reports as per HPI Endocrine: Reports as per HPI Hematologic/Lymphatic: Reports as per HPI Allergic/Immunologic: Reports as per HPI Mental Status Exam Mental Status Exam Narrative: Pt is alert and oriented; behavior is cooperative, friendly and calm; patient is not in distress; dressed in casual attire; mood is described as good ; eye contact appropriate; Speech is normal rate, volume and prosody and not pressured; no psychomotor agitation/retardation present; thought process is organized and goal directed; Thought content is on tx; presents with some spiritism delusions, but is starting to have reality based thinking; denies any SI/HI. There is no evidence of perceptual disturbance. Patients insight and judgment are poor but improving. Diagnostics Vital Signs (24Hr): Vital Signs - 24 hr 02/27/23 18:00 02/28/23 08:00 Temperature 98.2 F 98.1 F Pulse Rate 65 107 H Respiratory Rate 16 18 Blood Pressure 134/86 143/70 H Pulse Oximetry 100 97 Oxygen Delivery Method Room Air Room Air BMI result Body Mass Index 28.0 Labs 02/23/23 20:37 02/25/23 08:43 Medications Medications Current Medications Acetaminophen (Acetaminophen 325 Mg Tablet) 650 mg PO Q6H PRN PRN Reason: Headache/Pain Mild Scale (1-3) Al Hydroxide/Mg Hydroxide (Magnesium Hydrox/Alum Hydrox 30 Ml Oral.Susp) 30 ml PO Q6H PRN PRN Reason: Heartburn/Nausea Hydroxyzine HCl (Hydroxyzine Hcl 25 Mg Tablet) 25 mg PO Q6H PRN PRN Reason: Anxiety Last Admin: 02/25/23 05:28 Dose: 25 mg [place] Carbonate ([place] Carbonate Er 300 Mg Tablet.Er) 300 mg PO BID PIPPA Last Admin: 02/28/23 08:52 Dose: 300 mg Lorazepam (Lorazepam 1 Mg Tablet) 1 mg PO BEDTIME PIPPA Last Admin: 02/27/23 20:47 Dose: 1 mg Magnesium Hydroxide (Milk Of Magnesia 30 Ml Oral.Susp) 30 ml PO DAILY PRN PRN Reason: Constipation Risperidone (Risperidone 1 Mg Tablet) 1 mg PO BID [facility] Last Admin: 02/28/23 08:53 Dose: 1 mg Sodium Chloride (Sodium Chloride 0.65 % Nasal 44 Ml Sprbtl) 1 spray NOSTRIL-B Q1H PRN PRN Reason: Congestion Last Admin: 02/28/23 07:38 Dose: 1 spray Trazodone HCl (Trazodone Hcl 100 Mg Tablet) 100 mg PO BEDTIME PRN PRN Reason: Insomnia Allergies Allergies Allergy/AdvReac Type Severity Reaction Status Date / Time No Known Allergies Allergy Unverified 05/25/20 17:19 Assessment & Plan Assessment & Plan (1) Acute psychosis: Status: Acute Code(s): F23 - Brief psychotic disorder Plan Mr. Baeza is a 22 year-old male brought in to [facility] by parents as pt has been presenting as religiously preoccupied, not sleeping, acting bizarre way. In the ED, utox is negative. On the unit, pt continues to present with spiritism preoccupation, internally preoccupied. Pending collateral information to get better sense if pt had prodromal symptoms of schizophrenia prior to this psychotic episode. We discussed risks, benefits and alternative treatment options. Pt agrees to start risperidone 1mg po BID. PLAN: CV 15 minutes checks for safety risperidone 1mg po BID Ativan 1mg PO bedtime lithium 300mg PO bid Hospital Course: 02/26: Patient calm and organized, continues to have racing thoughts. Presents with spiritism delusional thought content. Believes he and came back to life. Would like something to help with the up and downs in my mood . He reports hx of days of not sleeping, excess spending, hypersexuality. T/W discussed starting a mood stabilizer such as lithium. Risks/benefits discussed. Patient agreed to starting lithium. 02/27: Pt reports feeling good today. Continues with spiritism delusions. Denies AH/VH. Pt states he knows he needs help with his mind . Continue with current medication regimen. 02/28: Pt feels medications are slowing him down . He is starting to question his delusions. Reports he continues to have racing thoughts. [place] level to be drawn Friday. Patient educated on: diagnosis, medication risk/benefits and therapeutic strategies Informed Consent: understands Reason for continued inpatient stay Substantial Risk for: med/psych decompensation Time Spent With Patient Time: Total time managing care of this patient today ____ minutes. Documented by User: Faheem Duke MD 02/28/23 15:15 Subjective Subjective Reason For Visit: Psychosis Diagnostics Labs 02/23/23 20:37 02/25/23 08:43 Assessment & Plan Assessment & Plan (1) Acute psychosis: Status: Acute Code(s): F23 - Brief psychotic disorder Plan Mr. Baeza is a 22 year-old male brought in to [facility] by parents as pt has been presenting as religiously preoccupied, not sleeping, acting bizarre way. In the ED, utox is negative. On the unit, pt continues to present with spiritism preoccupation, internally preoccupied. Pending collateral information to get better sense if pt had prodromal symptoms of schizophrenia prior to this psychotic episode. We discussed risks, benefits and alternative treatment options. Pt agrees to start risperidone 1mg po BID. PLAN: CV 15 minutes checks for safety risperidone 1mg po BID Ativan 1mg PO bedtime lithium 300mg PO bid Hospital Course: 02/26: Patient calm and organized, continues to have racing thoughts. Presents with spiritism delusional thought content. Believes he and came back to life. Would like something to help with the up and downs in my mood . He reports hx of days of not sleeping, excess spending, hypersexuality. T/W discussed starting a mood stabilizer such as lithium. Risks/benefits discussed. Patient agreed to starting lithium. 02/27: Pt reports feeling good today. Continues with spiritism delusions. Denies AH/VH. Pt states he knows he needs help with his mind . Continue with current medication regimen. 02/28: Pt feels medications are slowing him down . He is starting to question his delusions. Reports he continues to have racing thoughts. [place] level to be drawn Friday. above reviewed agree with tx and diagnosis TA
[2023-02-28] MEDS: Acetaminophen 325 MG TABLET 650 MG PO (15:34)
[2023-02-28] MEDS: Magnesium Hydrox/Alum Hydrox 30 ML ORAL.SUSP PO (15:57)
[2023-02-28 20:08] VITALS: BP 140/81; PULSE 99; RESP 16; TEMP 36.7; O2SAT 97
[2023-02-28] MEDS: LORazepam 1 MG TABLET PO (20:10)
[2023-02-28] MEDS: traZODone HCL 100 MG TABLET PO (20:10)
[2023-03-01] MEDS: Sodium Chloride 0.65 % Nasal 44 ML SPRBTL 1 SPRAY NOSTRIL-B ×8 (01:42→21:27)
[2023-03-01 06:00] VITALS: BP 136/79; PULSE 80; RESP 16; TEMP 36.2; O2SAT 96
[2023-03-01] MEDS: Acetaminophen 325 MG TABLET 650 MG PO ×2 (06:20→13:47)
[2023-03-01] MEDS: Lithium Carbonate ER 300 MG TABLET.ER PO ×2 (08:27→20:27)
[2023-03-01] MEDS: risperiDONE 1 MG TABLET PO ×2 (08:27→20:27)
[2023-03-01] MEDS: Magnesium Hydrox/Alum Hydrox 30 ML ORAL.SUSP PO ×2 (10:45→18:20)
[2023-03-01] MEDS: Benzocaine 20 % Oral Gel 9 GM TUBE 1 APPL MUCOUS MEM ×2 (11:50→18:20)
[2023-03-01] MEDS: Fluticasone Propionate Nasal 16 GM SPRAY 1 SPRAY NOSTRIL-B (11:50)
--- NOTE | 2023-03-01 16:36 | HO.PSYCHPN ---
Subjective Subjective Date of Service: 03/01/23 Reason For Visit: Psychosis Interim History: calm, cooperative. feels the meds have been helpful to reduce the speed of his thoughts and to allow him to think more clearly. no complaints or requests. per staff, mild anx/dep. showered 4 times yesterday. social. Mental Status Exam Mental Status Exam Narrative: Pt is alert and oriented; behavior is cooperative, friendly and calm; patient is not in distress; dressed in casual attire; mood is described as good ; eye contact appropriate; Speech is normal rate, volume and prosody and not pressured; no psychomotor agitation/retardation present; thought process is organized and goal directed; Thought content is on tx; no SI/HI expressed. There is no evidence of perceptual disturbance. Patients insight and judgment are poor but improving. Diagnostics Vital Signs (24Hr): Vital Signs - 24 hr 02/28/23 20:08 03/01/23 06:00 Temperature 98.1 F 97.2 F Pulse Rate 99 80 Respiratory Rate 16 16 Blood Pressure 140/81 H 136/79 Pulse Oximetry 97 96 Oxygen Delivery Method Room Air Room Air BMI result Body Mass Index 28.0 Labs 02/23/23 20:37 02/25/23 08:43 Medications Medications Current Medications Acetaminophen (Acetaminophen 325 Mg Tablet) 650 mg PO Q6H PRN PRN Reason: Headache/Pain Mild Scale (1-3) Last Admin: 03/01/23 13:47 Dose: 650 mg Al Hydroxide/Mg Hydroxide (Magnesium Hydrox/Alum Hydrox 30 Ml Oral.Susp) 30 ml PO Q6H PRN PRN Reason: Heartburn/Nausea Last Admin: 03/01/23 10:45 Dose: 30 ml Benzocaine (Benzocaine 20 % Oral Gel 9 Gm Tube) 1 appl MUCOUS MEM TID PRN; Protocol PRN Reason: Cold Sores Last Admin: 03/01/23 11:50 Dose: 1 appl Fluticasone Propionate (Fluticasone Propionate Nasal 16 Gm [place]) 1 spray NOSTRIL-B DAILY PRN PRN Reason: Nasal Congestion Last Admin: 03/01/23 11:50 Dose: 1 spray Hydroxyzine HCl (Hydroxyzine Hcl 25 Mg Tablet) 25 mg PO Q6H PRN PRN Reason: Anxiety Last Admin: 02/25/23 05:28 Dose: 25 mg [place] Carbonate ([place] Carbonate Er 300 Mg Tablet.Er) 300 mg PO BID [place]PA Last Admin: 03/01/23 08:27 Dose: 300 mg Lorazepam (Lorazepam 1 Mg Tablet) 1 mg PO BEDTIME [place] Last Admin: 02/28/23 20:10 Dose: 1 mg Magnesium Hydroxide (Milk Of Magnesia 30 Ml Oral.Susp) 30 ml PO DAILY PRN PRN Reason: Constipation Risperidone (Risperidone 1 Mg Tablet) 1 mg PO BID [place] Last Admin: 03/01/23 08:27 Dose: 1 mg Sodium Chloride (Sodium Chloride 0.65 % Nasal 44 Ml Sprbtl) 1 spray NOSTRIL-B Q1H PRN PRN Reason: Congestion Last Admin: 03/01/23 16:00 Dose: 1 spray Trazodone HCl (Trazodone Hcl 100 Mg Tablet) 100 mg PO BEDTIME PRN PRN Reason: Insomnia Last Admin: 02/28/23 20:10 Dose: 100 mg Allergies Allergies Allergy/AdvReac Type Severity Reaction Status Date / Time No Known Allergies Allergy Unverified 05/25/20 17:19 Assessment & Plan Assessment & Plan (1) Acute psychosis: Status: Acute Code(s): F23 - Brief psychotic disorder Plan Mr. Baeaz is a 22 year-old male brought in to [facility] [place] [facility] by parents as pt has been presenting as religiously preoccupied, not sleeping, acting bizarre way. In the ED, utox is negative. On the unit, pt continues to present with voodoo preoccupation, internally preoccupied. Pending collateral information to get better sense if pt had prodromal symptoms of schizophrenia prior to this psychotic episode. We discussed risks, benefits and alternative treatment options. Pt agrees to start risperidone 1mg po BID. PLAN: CV 15 minutes checks for safety risperidone 1mg po BID Ativan 1mg PO bedtime lithium 300mg PO bid Hospital Course: 02/26: Patient calm and organized, continues to have racing thoughts. Presents with voodoo delusional thought content. Believes he and came back to life. Would like something to help with the up and downs in my mood . He reports hx of days of not sleeping, excess spending, hypersexuality. T/W discussed starting a mood stabilizer such as lithium. Risks/benefits discussed. Patient agreed to starting lithium. 02/27: Pt reports feeling good today. Continues with voodoo delusions. Denies AH/VH. Pt states he knows he needs help with his mind . Continue with current medication regimen. 02/28: Pt feels medications are slowing him down . He is starting to question his delusions. Reports he continues to have racing thoughts. [place] level to be drawn Friday. above reviewed agree with tx and diagnosis TA 03/01: feeling improved on medications. continue current mgmt. Reason for continued inpatient stay Substantial Risk for: inability to function and rapid decompensation Time Spent With Patient Time: Total time managing care of this patient today ____ minutes.
[2023-03-01 20:10] VITALS: BP 143/92; PULSE 96; RESP 18; TEMP 36.6; O2SAT 97
[2023-03-01] MEDS: traZODone HCL 100 MG TABLET PO ×2 (20:27→21:25)
[2023-03-01] MEDS: LORazepam 1 MG TABLET PO (20:27)
[2023-03-02 06:00] VITALS: BP 120/66; PULSE 89; RESP 16; TEMP 36.7; O2SAT 97
[2023-03-02] MEDS: Magnesium Hydrox/Alum Hydrox 30 ML ORAL.SUSP PO ×2 (07:37→16:49)
[2023-03-02] MEDS: Sodium Chloride 0.65 % Nasal 44 ML SPRBTL 1 SPRAY NOSTRIL-B ×5 (07:37→20:30)
[2023-03-02] MEDS: Fluticasone Propionate Nasal 16 GM SPRAY 1 SPRAY NOSTRIL-B (07:37)
[2023-03-02] MEDS: risperiDONE 1 MG TABLET PO ×2 (08:33→20:31)
[2023-03-02] MEDS: Lithium Carbonate ER 300 MG TABLET.ER PO ×2 (08:33→20:31)
[2023-03-02] MEDS: Benzocaine 20 % Oral Gel 9 GM TUBE 1 APPL MUCOUS MEM (09:17)
[2023-03-02] MEDS: Pseudoephedrine HCL 30 MG TABLET PO ×3 (13:17→21:14)
--- NOTE | 2023-03-02 14:44 | HO.PSYCHPN ---
Subjective Subjective Date of Service: 03/02/23 Reason For Visit: Psychosis Interim History: reporting poor sleep last NOC 2/2 congestion. feels his thoughts have slowed down and are under better control, but there is still room for improvement. anticipating needing to increase lithium dosing after labs results tomorrow morning. per staff, dep 7, anx 8. frequent MNA, attributed to nasal congestion. eves 10/10 anx, no depression. got multiple doses of trazodone and slept essentially not at all last night. Mental Status Exam Mental Status Exam Narrative: Pt is alert and oriented; behavior is cooperative, friendly and calm; patient is not in distress; dressed in casual attire; mood is described as good ; eye contact appropriate; Speech is normal rate, volume and prosody and not pressured; no psychomotor agitation/retardation present; thought process is organized and goal directed; Thought content is on tx; no SI/HI expressed. There is no evidence of perceptual disturbance. Patients insight and judgment are poor but improving. Diagnostics Vital Signs (24Hr): Vital Signs - 24 hr 03/01/23 20:10 03/02/23 06:00 Temperature 98 F 98.1 F Pulse Rate 96 89 Respiratory Rate 18 16 Blood Pressure 143/92 H 120/66 Pulse Oximetry 97 97 Oxygen Delivery Method Room Air Room Air BMI result Body Mass Index 28.0 Labs 02/23/23 20:37 02/25/23 08:43 Medications Medications Current Medications Acetaminophen (Acetaminophen 325 Mg Tablet) 650 mg PO Q6H PRN PRN Reason: Headache/Pain Mild Scale (1-3) Last Admin: 03/01/23 13:47 Dose: 650 mg Al Hydroxide/Mg Hydroxide (Magnesium Hydrox/Alum Hydrox 30 Ml Oral.Susp) 30 ml PO Q6H PRN PRN Reason: Heartburn/Nausea Last Admin: 03/02/23 07:37 Dose: 30 ml Benzocaine (Benzocaine 20 % Oral Gel 9 Gm Tube) 1 appl MUCOUS MEM TID PRN; Protocol PRN Reason: Cold Sores Last Admin: 03/02/23 09:17 Dose: 1 appl Fluticasone Propionate (Fluticasone Propionate Nasal 16 Gm [place]) 1 spray NOSTRIL-B DAILY PRN PRN Reason: Nasal Congestion Last Admin: 03/02/23 07:37 Dose: 1 spray Hydroxyzine HCl (Hydroxyzine Hcl 25 Mg Tablet) 25 mg PO Q6H PRN PRN Reason: Anxiety Last Admin: 02/25/23 05:28 Dose: 25 mg [place] Carbonate ([place] Carbonate Er 300 Mg Tablet.Er) 300 mg PO BID PIPPA Last Admin: 03/02/23 08:33 Dose: 300 mg Lorazepam (Lorazepam 1 Mg Tablet) 1 mg PO BEDTIME [place]PA Last Admin: 03/01/23 20:27 Dose: 1 mg Magnesium Hydroxide (Milk Of Magnesia 30 Ml Oral.Susp) 30 ml PO DAILY PRN PRN Reason: Constipation Pseudoephedrine HCl (Pseudoephedrine Hcl 30 Mg Tablet) 30 mg PO Q4H PRN PRN Reason: Nasal Congestion Last Admin: 03/02/23 13:17 Dose: 30 mg Risperidone (Risperidone 1 Mg Tablet) 1 mg PO BID [place] Last Admin: 03/02/23 08:33 Dose: 1 mg Sodium Chloride (Sodium Chloride 0.65 % Nasal 44 Ml Sprbtl) 1 spray NOSTRIL-B Q1H PRN PRN Reason: Congestion Last Admin: 03/02/23 12:15 Dose: 1 spray Trazodone HCl (Trazodone Hcl 100 Mg Tablet) 100 mg PO BEDTIME PRN PRN Reason: Insomnia Last Admin: 03/01/23 21:25 Dose: 100 mg Allergies Allergies Allergy/AdvReac Type Severity Reaction Status Date / Time No Known Allergies Allergy Unverified 05/25/20 17:19 Assessment & Plan Assessment & Plan (1) Acute psychosis: Status: Acute Code(s): F23 - Brief psychotic disorder Plan Mr. Baeza is a 22 year-old male brought in to [facility] by parents as pt has been presenting as religiously preoccupied, not sleeping, acting bizarre way. In the ED, utox is negative. On the unit, pt continues to present with confucianism preoccupation, internally preoccupied. Pending collateral information to get better sense if pt had prodromal symptoms of schizophrenia prior to this psychotic episode. We discussed risks, benefits and alternative treatment options. Pt agrees to start risperidone 1mg po BID. PLAN: CV 15 minutes checks for safety risperidone 1mg po BID Ativan 1mg PO bedtime lithium 300mg PO bid Hospital Course: 02/26: Patient calm and organized, continues to have racing thoughts. Presents with confucianism delusional thought content. Believes he and came back to life. Would like something to help with the up and downs in my mood . He reports hx of days of not sleeping, excess spending, hypersexuality. T/W discussed starting a mood stabilizer such as lithium. Risks/benefits discussed. Patient agreed to starting lithium. 02/27: Pt reports feeling good today. Continues with confucianism delusions. Denies AH/VH. Pt states he knows he needs help with his mind . Continue with current medication regimen. 02/28: Pt feels medications are slowing him down . He is starting to question his delusions. Reports he continues to have racing thoughts. [place] level to be drawn Friday. above reviewed agree with tx and diagnosis TA 03/01: feeling improved on medications. continue current mgmt. 03/02: very poor sleep last NOC despite PRNs. thoughts slowed and more under control with lithium, but could be slower and more controlled. labs tomorrow morning. Reason for continued inpatient stay Substantial Risk for: inability to function and rapid decompensation Time Spent With Patient Time: Total time managing care of this patient today ____ minutes.
[2023-03-02 19:45] VITALS: BP 142/65; PULSE 115; RESP 18; TEMP 37.1; O2SAT 96
[2023-03-02] MEDS: LORazepam 1 MG TABLET PO (20:31)
[2023-03-02] MEDS: traZODone HCL 100 MG TABLET PO ×2 (21:14→22:09)
[2023-03-03 08:00] VITALS: BP 125/64; PULSE 97; RESP 18; TEMP 36.7; O2SAT 98
[2023-03-03] MEDS: Sodium Chloride 0.65 % Nasal 44 ML SPRBTL 1 SPRAY NOSTRIL-B ×4 (08:00→18:17)
[2023-03-03] MEDS: Pseudoephedrine HCL 30 MG TABLET PO ×2 (08:27→12:47)
[2023-03-03] MEDS: Lithium Carbonate ER 300 MG TABLET.ER PO (08:28)
[2023-03-03] MEDS: risperiDONE 1 MG TABLET PO ×2 (08:28→20:08)
[2023-03-03] MEDS: Fluticasone Propionate Nasal 16 GM SPRAY 1 SPRAY NOSTRIL-B (08:29)
[2023-03-03 10:07] LABS: Anion Gap 13 (12-20); Blood Urea Nitrogen 8 mg/dL (9-16); Carbon Dioxide 26 mmol/L (22-29); Chloride 102 mmol/L (96-108); Creatinine Clr Calc Pharmacy 140.5; Estimated Glomerular Filt Rate > 60; Potassium 4.1 mmol/L (3.3-5.1); Sodium 137 mmol/L (135-145)
[2023-03-03 10:09] LABS: Lithium 0.31 mmol/L (0.60-1.20)
[2023-03-03 10:27] LABS: TSH reflex Free T4 1.37 uIU/mL (0.32-4.0)
--- NOTE | 2023-03-03 10:36 | HO.PSYCHPN ---
Documented by User: Jackie Jarvis NP 03/03/23 16:16 Subjective Subjective Date of Service: 03/03/23 Reason For Visit: Psychosis Subjective Notes: Conditional Voluntary Interim History: Reviewed in team and with Dr. Duke. Patient reports feeling okay today. Patient reports he continues to have racing thoughts and would like his lithium increased. Patient continues with some presybeterian delusions; pt stated, I don't have hallucinations like when I first came in. I don't know what happened. I don't know if I or if it was an intense dream . Medication Compliance: Yes Side effects from medications: No Attending Groups: Yes Review of Systems Constitutional: Reports as per HPI Eyes: Reports as per HPI Reports as per HPI Cardiovascular: Reports as per HPI Respiratory: Reports as per HPI Gastrointestinal: Reports as per HPI Genitourinary: Reports as per HPI Musculoskeletal: Reports as per HPI Skin/Breast: Reports as per HPI Reports as per HPI Psychiatric: Reports as per HPI Endocrine: Reports as per HPI Hematologic/Lymphatic: Reports as per HPI Allergic/Immunologic: Reports as per HPI Mental Status Exam Mental Status Exam Narrative: Pt is alert and oriented; behavior is cooperative, friendly and calm; patient is not in distress; dressed in casual attire; mood is described as okay ; eye contact appropriate; Speech is normal rate, volume and prosody and not pressured; no psychomotor agitation/retardation present; thought process is organized and goal directed; Thought content is on tx; pt continues with some presybeterian delusional content; denies any SI/HI. There is no evidence of perceptual disturbance. Patients insight and judgment are poor but slowly improving. Diagnostics Vital Signs (24Hr): Vital Signs - 24 hr 03/02/23 19:45 03/03/23 08:00 Temperature 98.8 F 98.1 F Pulse Rate 115 H 97 Respiratory Rate 18 18 Blood Pressure 142/65 H 125/64 Pulse Oximetry 96 98 Oxygen Delivery Method Room Air Room Air BMI result Body Mass Index 28.0 Labs 02/23/23 20:37 03/03/23 08:50 Labs: Laboratory Results - last 48 hr 03/03/23 03/03/23 08:50 08:50 Sodium 137 Potassium 4.1 Chloride 102 Carbon Dioxide 26 Anion Gap 13 BUN 8 L Creatinine 0.82 Estim Creat Clear Calc 140.5 Estimated GFR > 60 TSH 1.37 [place] 0.31 L Medications Medications Current Medications Acetaminophen (Acetaminophen 325 Mg Tablet) 650 mg PO Q6H PRN PRN Reason: Headache/Pain Mild Scale (1-3) Last Admin: 03/01/23 13:47 Dose: 650 mg Al Hydroxide/Mg Hydroxide (Magnesium Hydrox/Alum Hydrox 30 Ml Oral.Susp) 30 ml PO Q6H PRN PRN Reason: Heartburn/Nausea Last Admin: 03/02/23 16:49 Dose: 30 ml Benzocaine (Benzocaine 20 % Oral Gel 9 Gm Tube) 1 appl MUCOUS MEM TID PRN; Protocol PRN Reason: Cold Sores Last Admin: 03/02/23 09:17 Dose: 1 appl Fluticasone Propionate (Fluticasone Propionate Nasal 16 Gm [place]) 1 spray NOSTRIL-B DAILY PRN PRN Reason: Nasal Congestion Last Admin: 03/03/23 08:29 Dose: 1 spray Hydroxyzine HCl (Hydroxyzine Hcl 25 Mg Tablet) 25 mg PO Q6H PRN PRN Reason: Anxiety Last Admin: 02/25/23 05:28 Dose: 25 mg [place] Carbonate ([place] Carbonate Er 300 Mg Tablet.Er) 300 mg PO BID [facility] Last Admin: 03/03/23 08:28 Dose: 300 mg Magnesium Hydroxide (Milk Of Magnesia 30 Ml Oral.Susp) 30 ml PO DAILY PRN PRN Reason: Constipation Pseudoephedrine HCl (Pseudoephedrine Hcl 30 Mg Tablet) 30 mg PO Q4H PRN PRN Reason: Nasal Congestion Last Admin: 03/03/23 08:27 Dose: 30 mg Risperidone (Risperidone 1 Mg Tablet) 1 mg PO BID [facility] Last Admin: 03/03/23 08:28 Dose: 1 mg Sodium Chloride (Sodium Chloride 0.65 % Nasal 44 Ml Sprbtl) 1 spray NOSTRIL-B Q1H PRN PRN Reason: Congestion Last Admin: 03/03/23 10:00 Dose: 1 spray Trazodone HCl (Trazodone Hcl 100 Mg Tablet) 100 mg PO BEDTIME PRN PRN Reason: Insomnia Last Admin: 03/02/23 22:09 Dose: 100 mg Allergies Allergies Allergy/AdvReac Type Severity Reaction Status Date / Time No Known Allergies Allergy Unverified 05/25/20 17:19 Assessment & Plan Assessment & Plan (1) Severe manic bipolar 1 disorder with psychotic behavior: Status: Acute Code(s): F31.2 - Bipolar disorder, current episode manic severe with psychotic features Plan Mr. Baeza is a 22 year-old male brought in to [facility] by parents as pt has been presenting as religiously preoccupied, not sleeping, acting bizarre way. In the ED, utox is negative. On the unit, pt continues to present with presybeterian preoccupation, internally preoccupied. Pending collateral information to get better sense if pt had prodromal symptoms of schizophrenia prior to this psychotic episode. We discussed risks, benefits and alternative treatment options. Pt agrees to start risperidone 1mg po BID. PLAN: CV 15 minutes checks for safety risperidone 1mg po BID Ativan 1mg PO bedtime Increased: lithium 450mg PO bid Hospital Course: 02/26: Patient calm and organized, continues to have racing thoughts. Presents with presybeterian delusional thought content. Believes he and came back to life. Would like something to help with the up and downs in my mood . He reports hx of days of not sleeping, excess spending, hypersexuality. T/W discussed starting a mood stabilizer such as lithium. Risks/benefits discussed. Patient agreed to starting lithium. 02/27: Pt reports feeling good today. Continues with presybeterian delusions. Denies AH/VH. Pt states he knows he needs help with his mind . Continue with current medication regimen. 02/28: Pt feels medications are slowing him down . He is starting to question his delusions. Reports he continues to have racing thoughts. [place] level to be drawn Friday. above reviewed agree with tx and diagnosis TA 03/01: feeling improved on medications. continue current mgmt. 03/02: very poor sleep last NOC despite PRNs. thoughts slowed and more under control with lithium, but could be slower and more controlled. labs tomorrow morning. 03/03: Patient requesting medication dose to be increased d/t continued racing thoughts. denies AH/VH. Pt stated, I don't know if I or if it was a dream . [place] to be increased to 450mg PO BID. lithium level 0.31 Patient educated on: diagnosis, medication risk/benefits and therapeutic strategies Informed Consent: understands Reason for continued inpatient stay Substantial Risk for: med/psych decompensation Time Spent With Patient Time: Total time managing care of this patient today ____ minutes. Documented by User: Faheem Duke MD 03/03/23 16:52 Subjective Subjective Reason For Visit: Psychosis Diagnostics Labs 02/23/23 20:37 03/03/23 08:50 Assessment & Plan Assessment & Plan (1) Severe manic bipolar 1 disorder with psychotic behavior: Status: Acute Code(s): F31.2 - Bipolar disorder, current episode manic severe with psychotic features Time Spent With Patient Time: Total time managing care of this patient today _30___ minutes.
[2023-03-03] MEDS: Lithium Carbonate ER 300 MG TABLET.ER 150 MG PO (17:22)
--- NOTE | 2023-03-03 17:35 | PC.NURSE ---
Patient complaining of bleeding when wiping rectum. Pt reported that he has been straining with recent bowel movements. Reported that there is discomfort when wiping as well. call center operations manager, Dr. Barber notified. No new orders given.
[2023-03-03] MEDS: Lithium Carbonate ER 450 MG TABLET.ER PO (20:07)
[2023-03-03] MEDS: traZODone HCL 100 MG TABLET PO (20:08)
[2023-03-03 20:10] VITALS: BP 133/80; PULSE 110; RESP 18; TEMP 36.8; O2SAT 95
[2023-03-04] MEDS: Magnesium Hydrox/Alum Hydrox 30 ML ORAL.SUSP PO ×2 (00:46→23:32)
[2023-03-04] MEDS: traZODone HCL 100 MG TABLET PO ×2 (01:12→20:26)
[2023-03-04] MEDS: risperiDONE 1 MG TABLET PO ×2 (08:17→20:26)
[2023-03-04] MEDS: Lithium Carbonate ER 450 MG TABLET.ER PO (08:17)
[2023-03-04 09:02] VITALS: BP 123/58; PULSE 96; RESP 18; TEMP 36.8; O2SAT 96
--- NOTE | 2023-03-04 10:03 | HO.PSYCHPN ---
Subjective Subjective Date of Service: 03/04/23 Reason For Visit: Psychosis Subjective Notes: Conditional Voluntary Interim History: Reviewed in team and with Dr. Duke. Patient reports feeling okay today. Patient reports he continues to have racing thoughts. Pt stated, I'm trying to write everything down and remember what happened to me. I'm happy to know I'm bipolar because I've always been on and off like a light switch with my mood . Patient continues with some yazdanism delusions; pt stated, I know something bad happened to me. Maybe I could of . I don't know . Medication Compliance: Yes Side effects from medications: No Attending Groups: Yes Review of Systems Constitutional: Reports as per HPI Eyes: Reports as per HPI Reports as per HPI Cardiovascular: Reports as per HPI Respiratory: Reports as per HPI Gastrointestinal: Reports as per HPI Genitourinary: Reports as per HPI Musculoskeletal: Reports as per HPI Skin/Breast: Reports as per HPI Reports as per HPI Psychiatric: Reports as per HPI Endocrine: Reports as per HPI Hematologic/Lymphatic: Reports as per HPI Allergic/Immunologic: Reports as per HPI Mental Status Exam Mental Status Exam Narrative: Pt is alert and oriented; behavior is cooperative, friendly and calm; patient is not in distress; dressed in casual attire; mood is described as okay ; eye contact appropriate; Speech is normal rate, volume and prosody and not pressured; no psychomotor agitation/retardation present; thought process is organized and goal directed; Thought content is on tx; pt continues with some yazdanism delusional content; denies any SI/HI. There is no evidence of perceptual disturbance. Patients insight and judgment are poor but slowly improving. Diagnostics Vital Signs (24Hr): Vital Signs - 24 hr 03/03/23 20:10 03/04/23 09:02 Temperature 98.2 F 98.3 F Pulse Rate 110 H 96 Respiratory Rate 18 18 Blood Pressure 133/80 123/58 L Pulse Oximetry 95 96 Oxygen Delivery Method Room Air Room Air BMI result Body Mass Index 28.0 Labs 02/23/23 20:37 03/03/23 08:50 Labs: Laboratory Results - last 48 hr 03/03/23 03/03/23 08:50 08:50 Sodium 137 Potassium 4.1 Chloride 102 Carbon Dioxide 26 Anion Gap 13 BUN 8 L Creatinine 0.82 Estim Creat Clear Calc 140.5 Estimated GFR > 60 TSH 1.37 [place] 0.31 L Medications Medications Current Medications Acetaminophen (Acetaminophen 325 Mg Tablet) 650 mg PO Q6H PRN PRN Reason: Headache/Pain Mild Scale (1-3) Last Admin: 03/01/23 13:47 Dose: 650 mg Al Hydroxide/Mg Hydroxide (Magnesium Hydrox/Alum Hydrox 30 Ml Oral.Susp) 30 ml PO Q6H PRN PRN Reason: Heartburn/Nausea Last Admin: 03/04/23 00:46 Dose: 30 ml Benzocaine (Benzocaine 20 % Oral Gel 9 Gm Tube) 1 appl MUCOUS MEM TID PRN; Protocol PRN Reason: Cold Sores Last Admin: 03/02/23 09:17 Dose: 1 appl Fluticasone Propionate (Fluticasone Propionate Nasal 16 Gm [place]) 1 spray NOSTRIL-B DAILY PRN PRN Reason: Nasal Congestion Last Admin: 03/03/23 08:29 Dose: 1 spray Hydroxyzine HCl (Hydroxyzine Hcl 25 Mg Tablet) 25 mg PO Q6H PRN PRN Reason: Anxiety Last Admin: 02/25/23 05:28 Dose: 25 mg [place] Carbonate ([place] Carbonate Er 450 Mg Tablet.Er) 450 mg PO BID PIPPA Last Admin: 03/04/23 08:17 Dose: 450 mg Magnesium Hydroxide (Milk Of Magnesia 30 Ml Oral.Susp) 30 ml PO DAILY PRN PRN Reason: Constipation Pseudoephedrine HCl (Pseudoephedrine Hcl 30 Mg Tablet) 30 mg PO Q4H PRN PRN Reason: Nasal Congestion Last Admin: 03/03/23 12:47 Dose: 30 mg Risperidone (Risperidone 1 Mg Tablet) 1 mg PO BID [facility] Last Admin: 03/04/23 08:17 Dose: 1 mg Sodium Chloride (Sodium Chloride 0.65 % Nasal 44 Ml Sprbtl) 1 spray NOSTRIL-B Q1H PRN PRN Reason: Congestion Last Admin: 03/03/23 18:17 Dose: 1 spray Trazodone HCl (Trazodone Hcl 100 Mg Tablet) 100 mg PO BEDTIME PRN PRN Reason: Insomnia Last Admin: 03/04/23 01:12 Dose: 100 mg Allergies Allergies Allergy/AdvReac Type Severity Reaction Status Date / Time No Known Allergies Allergy Unverified 05/25/20 17:19 Assessment & Plan Assessment & Plan (1) Severe manic bipolar 1 disorder with psychotic behavior: Status: Acute Code(s): F31.2 - Bipolar disorder, current episode manic severe with psychotic features Plan Mr. Baeza is a 22 year-old male brought in to [facility] by parents as pt has been presenting as religiously preoccupied, not sleeping, acting bizarre way. In the ED, utox is negative. On the unit, pt continues to present with yazdanism preoccupation, internally preoccupied. Pending collateral information to get better sense if pt had prodromal symptoms of schizophrenia prior to this psychotic episode. We discussed risks, benefits and alternative treatment options. Pt agrees to start risperidone 1mg po BID. PLAN: CV 15 minutes checks for safety Risperidone 1mg po BID Increased: lithium 600mg PO bid Hospital Course: 02/26: Patient calm and organized, continues to have racing thoughts. Presents with yazdanism delusional thought content. Believes he and came back to life. Would like something to help with the up and downs in my mood . He reports hx of days of not sleeping, excess spending, hypersexuality. T/W discussed starting a mood stabilizer such as lithium. Risks/benefits discussed. Patient agreed to starting lithium. 02/27: Pt reports feeling good today. Continues with yazdanism delusions. Denies AH/VH. Pt states he knows he needs help with his mind . Continue with current medication regimen. 02/28: Pt feels medications are slowing him down . He is starting to question his delusions. Reports he continues to have racing thoughts. [place] level to be drawn Friday. above reviewed agree with tx and diagnosis TA 03/01: feeling improved on medications. continue current mgmt. 03/02: very poor sleep last NOC despite PRNs. thoughts slowed and more under control with lithium, but could be slower and more controlled. labs tomorrow morning. 03/03: Patient requesting medication dose to be increased d/t continued racing thoughts. denies AH/VH. Pt stated, I don't know if I or if it was a dream . [place] to be increased to 450mg PO BID. lithium level 0.31 03/04: Pt continues to reports racing thoughts. Patient denies any side effects from medications. [place] to be increased to 600mg PO BID. Patient educated on: diagnosis, medication risk/benefits and therapeutic strategies Informed Consent: understands Reason for continued inpatient stay Substantial Risk for: med/psych decompensation Time Spent With Patient Time: Total time managing care of this patient today ____ minutes.
[2023-03-04] MEDS: Lithium Carbonate 300 MG TABLET 150 MG PO (14:30)
[2023-03-04] MEDS: Sodium Chloride 0.65 % Nasal 44 ML SPRBTL 1 SPRAY NOSTRIL-B (20:25)
[2023-03-04] MEDS: Lithium Carbonate ER 300 MG TABLET.ER 600 MG PO (20:26)
[2023-03-04 20:31] VITALS: BP 129/79; PULSE 78; TEMP 37.1; O2SAT 98
[2023-03-05 08:27] VITALS: BP 137/62; PULSE 91; RESP 20; TEMP 36.8; O2SAT 97
[2023-03-05] MEDS: Lithium Carbonate ER 300 MG TABLET.ER 600 MG PO ×2 (08:39→21:58)
[2023-03-05] MEDS: risperiDONE 1 MG TABLET PO (08:39)
--- NOTE | 2023-03-05 10:33 | P.PNPSI_ITS ---
Subjective Subjective Date of Service: 03/05/23 Reason For Visit: Psychosis Subjective Notes: Conditional Voluntary Interim History: Reviewed in team and with Dr. Duke. Patient reports feeling okay today. Patient reports he continues to have racing thoughts. Pt stated, I'm trying to write everything down and remember what happened to me. I'm happy to know I'm bipolar because I've always been on and off like a light switch with my mood . Patient continues with some voodoo delusions; pt stated, I know something bad happened to me. Maybe I could of di ed. I don't know . Medication Compliance: Yes Side effects from medications: No Attending Groups: Yes Review of Systems Constitutional: Reports as per HPI Eyes: Reports as per HPI Reports as per HPI Cardiovascular: Reports as per HPI Respiratory: Reports as per HPI Gastrointestinal: Reports as per HPI Genitourinary: Reports as per HPI Musculoskeletal: Reports as per HPI Skin/Breast: Reports as per HPI Reports as per HPI Psychiatric: Reports as per HPI Endocrine: Reports as per HPI Hematologic/Lymphatic: Reports as per HPI Allergic/Immunologic: Reports as per HPI Mental Status Exam Mental Status Exam Narrative: Pt is alert and oriented; behavior is cooperative, friendly and calm; patient is not in distress; dressed in casual attire; mood is described as okay ; eye contact appropriate; Speech is normal rate, volume and prosody and not pressured; no psychomotor agitation/retardation present; thought process is organized and goal directed; Thought content is on tx; pt continues with some voodoo delusional content; denies any SI/HI. There is no evidence of perceptual disturbance. Patients insight and judgment are poor but slowly improving. Diagnostics Vital Signs (24Hr): Vital Signs - 24 hr 03/04/23 20:31 03/05/23 08:27 Temperature 98.7 F 98.2 F Pulse Rate 78 91 Respiratory Rate 20 Blood Pressure 129/79 137/62 Pulse Oximetry 98 97 Oxygen Delivery Method Room Air Room Air BMI result Body Mass Index 28.0 Labs 02/23/23 20:37 03/03/23 08:50 Medications Medications Current Medications Acetaminophen (Acetaminophen 325 Mg Tablet) 650 mg PO Q6H PRN PRN Reason: Headache/Pain Mild Scale (1-3) Last Admin: 03/01/23 13:47 Dose: 650 mg Al Hydroxide/Mg Hydroxide (Magnesium Hydrox/Alum Hydrox 30 Ml Oral.Susp) 30 ml PO Q6H PRN PRN Reason: Heartburn/Nausea Last Admin: 03/04/23 23:32 Dose: 30 ml Benzocaine (Benzocaine 20 % Oral Gel 9 Gm Tube) 1 appl MUCOUS MEM TID PRN; Protocol PRN Reason: Cold Sores Last Admin: 03/02/23 09:17 Dose: 1 appl Fluticasone Propionate (Fluticasone Propionate Nasal 16 Gm [place]) 1 spray NOSTRIL-B DAILY PRN PRN Reason: Nasal Congestion Last Admin: 03/03/23 08:29 Dose: 1 spray Hydroxyzine HCl (Hydroxyzine Hcl 25 Mg Tablet) 25 mg PO Q6H PRN PRN Reason: Anxiety Last Admin: 02/25/23 05:28 Dose: 25 mg [place] Carbonate ([place] Carbonate Er 300 Mg Tablet.Er) 600 mg PO BID [place] Last Admin: 03/05/23 08:39 Dose: 600 mg Magnesium Hydroxide (Milk Of Magnesia 30 Ml Oral.Susp) 30 ml PO DAILY PRN PRN Reason: Constipation Pseudoephedrine HCl (Pseudoephedrine Hcl 30 Mg Tablet) 30 mg PO Q4H PRN PRN Reason: Nasal Congestion Last Admin: 03/03/23 12:47 Dose: 30 mg Risperidone (Risperidone 1 Mg Tablet) 1 mg PO BID [place] Last Admin: 03/05/23 08:39 Dose: 1 mg Sodium Chloride (Sodium Chloride 0.65 % Nasal 44 Ml Sprbtl) 1 spray NOSTRIL-B Q1H PRN PRN Reason: Congestion Last Admin: 03/04/23 20:25 Dose: 1 spray Trazodone HCl (Trazodone Hcl 100 Mg Tablet) 100 mg PO BEDTIME PRN PRN Reason: Insomnia Last Admin: 03/04/23 20:26 Dose: 100 mg Allergies Allergies Allergy/AdvReac Type Severity Reaction Status Date / Time No Known Allergies Allergy Unverified 05/25/20 17:19 Assessment & Plan Assessment & Plan (1) Severe manic bipolar 1 disorder with psychotic behavior: Status: Acute Code(s): F31.2 - Bipolar disorder, current episode manic severe with psychotic features Plan Mr. Baeza is a 22 year-old male brought in to [facility] [place] ED by parents as pt has been presenting as religiously preoccupied, not sleeping, acting bizarre way. In the ED, utox is negative. On the unit, pt continues to present with voodoo preoccupation, internally preoccupied. Pending collateral information to get better sense if pt had prodromal symptoms of schizophrenia prior to this psychotic episode. We discussed risks, benefits and alternative treatment options. Pt agrees to start risperidone 1mg po BID. PLAN: CV 15 minutes checks for safety lithium 600mg PO bid Increase: Risperidone 1mg PO daily Risperidone 2mg PO bedtime Hospital Course: 02/26: Patient calm and organized, continues to have racing thoughts. Presents with voodoo delusional thought content. Believes he and came back to life. Would like something to help with the up and downs in my mood . He rep orts hx of days of not sleeping, excess spending, hypersexuality. T/W discussed starting a mood stabilizer such as lithium. Risks/benefits discussed. Patient agreed to starting lithium. 02/27: Pt reports feeling good today. Continues with voodoo delusions. Denies AH/VH. Pt states he knows he needs help with his mind . Continue with current medication regimen. 02/28: Pt feels medications are slowing him down . He is starting to question his delusions. Reports he continues to have racing thoughts. [place] level to be drawn Friday. above reviewed agree with tx and diagnosis TA 03/01: feeling improved on medications. continue current mgmt. 03/02: very poor sleep last NOC despite PRNs. thoughts slowed and more under control with lithium, but could be slower and more controlled. labs tomorrow morning. 03/03: Patient requesting medication dose to be increased d/t continued racing thoughts. denies AH/VH. Pt stated, I don't know if I or if it was a dream . [place] to be increased to 450mg PO BID. lithium level 0.31 03/04: Pt continues to reports racing thoughts. Patient denies any side effects from medications. [place] to be increased to 600mg PO BID. 03/05: Family meeting with parents, pt and social service technician present. Patient and parents agree that patient should stay hospitalized until pt is back at baseline. Pt gave parents a note which had some voodoo delusional content. Risperidone dose increased with patient consent. Patient educated on: diagnosis, medication risk/benefits and therapeutic strategies Guardian/Caregiver educated on: diagnosis, medication risk/benefits and therapeutic strategies Informed Consent: understands Reason for continued inpatient stay Substantial Risk for: med/psych decompensation Time Spent With Patient Time: Total time managing care of this patient today ____ minutes.
[2023-03-05 21:55] VITALS: BP 132/73; PULSE 83; TEMP 36.7; O2SAT 95
[2023-03-05] MEDS: risperiDONE 2 MG TABLET PO (21:58)
--- NOTE | 2023-03-06 09:29 | P.PNPSI_ITS ---
Subjective Subjective Date of Service: 03/06/23 Reason For Visit: Psychosis Subjective Notes: Conditional Voluntary Interim History: Reviewed in team and with Dr. Duke. Patient reports he continues to have racing thoughts. Pt stated, feeling emotionally drained after family meeting yesterday . Pt states he makes illogical statements about Jehovah sometimes when I get strong emotions . Continues with some rastafarian delusional thought content. Patient's insight is starting to improve; pt stated, I love Jehovah a lot but the way it comes out is illogical and I know I need to not take it that far . Medication Compliance: Yes Side effects from medications: No Attending Groups: Yes Review of Systems Constitutional: Reports as per HPI Eyes: Reports as per HPI Reports as per HPI Cardiovascular: Reports as per HPI Respiratory: Reports as per HPI Gastrointestinal: Reports as per HPI Genitourinary: Reports as per HPI Musculoskeletal: Reports as per HPI Skin/Breast: Reports as per HPI Reports as per HPI Psychiatric: Reports as per HPI Endocrine: Reports as per HPI Hematologic/Lymphatic: Reports as per HPI Allergic/Immunologic: Reports as per HPI Mental Status Exam Mental Status Exam Narrative: Pt is alert and oriented; behavior is cooperative, friendly and calm; patient is not in distress; dressed in casual attire; mood is described as okay ; eye contact appropriate; Speech is normal rate, volume and prosody and not pressured; no psychomotor agitation/retardation present; thought process is organized and goal directed; Thought content is on tx; pt continues with some rastafarian delusional content; denies any SI/HI. There is no evidence of perceptual disturbance. Patients insight and judgment are poor but slowly improving. Diagnostics Vital Signs (24Hr): Vital Signs - 24 hr 03/05/23 21:55 Temperature 98.1 F Pulse Rate 83 Blood Pressure 132/73 Pulse Oximetry 95 Oxygen Delivery Method Room Air BMI result Body Mass Index 28.0 Labs 02/23/23 20:37 03/03/23 08:50 Medications Medications Current Medications Acetaminophen (Acetaminophen 325 Mg Tablet) 650 mg PO Q6H PRN PRN Reason: Headache/Pain Mild Scale (1-3) Last Admin: 03/01/23 13:47 Dose: 650 mg Al Hydroxide/Mg Hydroxide (Magnesium Hydrox/Alum Hydrox 30 Ml Oral.Susp) 30 ml PO Q6H PRN PRN Reason: Heartburn/Nausea Last Admin: 03/04/23 23:32 Dose: 30 ml Benzocaine (Benzocaine 20 % Oral Gel 9 Gm Tube) 1 appl MUCOUS MEM TID PRN; Protocol PRN Reason: Cold Sores Last Admin: 03/02/23 09:17 Dose: 1 appl Fluticasone Propionate (Fluticasone Propionate Nasal 16 Gm [place]) 1 spray NOSTRIL-B DAILY PRN PRN Reason: Nasal Congestion Last Admin: 03/03/23 08:29 Dose: 1 spray Hydroxyzine HCl (Hydroxyzine Hcl 25 Mg Tablet) 25 mg PO Q6H PRN PRN Reason: Anxiety Last Admin: 02/25/23 05:28 Dose: 25 mg [place] Carbonate ([place] Carbonate Er 300 Mg Tablet.Er) 600 mg PO BID PIPPA Last Admin: 03/05/23 21:58 Dose: 600 mg Magnesium Hydroxide (Milk Of Magnesia 30 Ml Oral.Susp) 30 ml PO DAILY PRN PRN Reason: Constipation Pseudoephedrine HCl (Pseudoephedrine Hcl 30 Mg Tablet) 30 mg PO Q4H PRN PRN Reason: Nasal Congestion Last Admin: 03/03/23 12:47 Dose: 30 mg Risperidone (Risperidone 1 Mg Tablet) 1 mg PO DAILY [place] Risperidone (Risperidone 2 Mg Tablet) 2 mg PO BEDTIME [place] Last Admin: 03/05/23 21:58 Dose: 2 mg Sodium Chloride (Sodium Chloride 0.65 % Nasal 44 Ml Sprbtl) 1 spray NOSTRIL-B Q1H PRN PRN Reason: Congestion Last Admin: 03/04/23 20:25 Dose: 1 spray Trazodone HCl (Trazodone Hcl 100 Mg Tablet) 100 mg PO BEDTIME PRN PRN Reason: Insomnia Last Admin: 03/04/23 20:26 Dose: 100 mg Allergies Allergies Allergy/AdvReac Type Severity Reaction Status Date / Time No Known Allergies Allergy Unverified 05/25/20 17:19 Assessment & Plan Assessment & Plan (1) Severe manic bipolar 1 disorder with psychotic behavior: Status: Acute Code(s): F31.2 - Bipolar disorder, current episode manic severe with psychotic features Plan Mr. Baeza is a 22 year-old male brought in to [facility] by parents as pt has been presenting as religiously preoccupied, not sleeping, acting bizarre way. In the ED, utox is negative. On the unit, pt continues to present with rastafarian preoccupation, internally preoccupied. Pending collateral information to get better sense if pt had prodromal symptoms of schizophrenia prior to this psychotic episode. We discussed risks, benefits and alternative treatment options. Pt agrees to start risperidone 1mg po BID. PLAN: CV 15 minutes checks for safety lithium 600mg PO bid Risperidone 1mg PO daily Risperidone 2mg PO bedtime Hospital Course: 02/26: Patient calm and organized, continues to have racing thoughts. Presents with rastafarian delusional thought content. Believes he and came back to life. Would like something to help with the up and downs in my mood . He reports hx of days of not sleeping, excess spending, hypersexuality. T/W discussed starting a mood stabilizer such as lithium. Risks/benefits discussed. Patient agreed to starting lithium. 02/27: Pt reports feeling good today. Continues with rastafarian delusions. Denies AH/VH. Pt states he knows he needs help with his mind . Continue with current medication regimen. 02/28: Pt feels medications are slowing him down . He is starting to question his delusions. Reports he continues to have racing thoughts. [place] level to be drawn Friday. above reviewed agree with tx and diagnosis TA 03/01: feeling improved on medications. continue current mgmt. 03/02: very poor sleep last NOC despite PRNs. thoughts slowed and more under control with lithium, but could be slower and more controlled. labs tomorrow morning. 03/03: Patient requesting medication dose to be increased d/t continued racing thoughts. denies AH/VH. Pt stated, I don't know if I or if it was a dream . [place] to be increased to 450mg PO BID. lithium level 0.31 03/04: Pt continues to reports racing thoughts. Patient denies any side effects from medications. [place] to be increased to 600mg PO BID. 03/05: Family meeting with parents, pt and social science research assistant present. Patient and parents agree that patient should stay hospitalized until pt is back at baseline. Pt gave parents a note which had some rastafarian delusional content. Risperidone dose increased with patient consent. 03/06: Pt reports feeling emotionally drained after family meeting yesterday. Pt states he makes illogical statements about Jehovah sometimes when I get strong emotions . Continues with some rastafarian delusional thought content. Continue current tx plan. Patient educated on: diagnosis, medication risk/benefits and therapeutic strategies Informed Consent: understands Reason for continued inpatient stay Substantial Risk for: med/psych decompensation Time Spent With Patient Time: Total time managing care of this patient today ____ minutes.
[2023-03-06] MEDS: risperiDONE 1 MG TABLET PO (09:58)
[2023-03-06] MEDS: Lithium Carbonate ER 300 MG TABLET.ER 600 MG PO ×2 (09:58→21:05)
[2023-03-06 12:34] VITALS: BP 126/72; PULSE 80; RESP 16; TEMP 36.9; O2SAT 98
[2023-03-06 21:03] VITALS: BP 139/74; PULSE 78; RESP 18; TEMP 36.7; O2SAT 98
[2023-03-06] MEDS: traZODone HCL 100 MG TABLET PO (21:05)
[2023-03-06] MEDS: risperiDONE 2 MG TABLET PO (21:05)
[2023-03-07] MEDS: Lithium Carbonate ER 300 MG TABLET.ER 600 MG PO ×2 (09:01→20:37)
[2023-03-07] MEDS: risperiDONE 1 MG TABLET PO (09:01)
[2023-03-07 09:37] VITALS: BP 126/66; PULSE 83; RESP 16; TEMP 36.6; O2SAT 96
--- NOTE | 2023-03-07 10:50 | P.PNPSI_ITS ---
Subjective Subjective Date of Service: 03/07/23 Reason For Visit: Psychosis Subjective Notes: Conditional Voluntary Interim History: Reviewed in team and with Dr. Duke. Patient reports feeling better today. He reports his thoughts are not racing as much. Patient's insight has improved; pt stated, I know sometime I get strong emotions and don't make sense . Patient reports he is hoping to be discharged on Friday after his lithium level is drawn. Medication Compliance: Yes Side effects from medications: No Attending Groups: Yes Review of Systems Constitutional: Reports as per HPI Eyes: Reports as per HPI Reports as per HPI Cardiovascular: Reports as per HPI Respiratory: Reports as per HPI Gastrointestinal: Reports as per HPI Genitourinary: Reports as per HPI Musculoskeletal: Reports as per HPI Skin/Breast: Reports as per HPI Reports as per HPI Psychiatric: Reports as per HPI Endocrine: Reports as per HPI Hematologic/Lymphatic: Reports as per HPI Allergic/Immunologic: Reports as per HPI Mental Status Exam Mental Status Exam Narrative: Pt is alert and oriented; behavior is cooperative, friendly and calm; patient is not in distress; dressed in casual attire; mood is described as better ; eye contact appropriate; Speech is normal rate, volume and prosody and not pressured; no psychomotor agitation/retardation present; thought process is organized and goal directed; Thought content is on tx;otherwise pertinent to relevant topics and without any delusional content, paranoid ideations or grandiosity; denies any SI/HI. There is no evidence of perceptual disturbance. Patients insight and judgment are fair. Diagnostics Vital Signs (24Hr): Vital Signs - 24 hr 03/06/23 12:34 03/06/23 21:03 03/07/23 09:37 Temperature 98.4 F 98.1 F 98 F Pulse Rate 80 78 83 Respiratory Rate 16 18 16 Blood Pressure 126/72 139/74 126/66 Pulse Oximetry 98 98 96 Oxygen Delivery Method Room Air Room Air Room Air BMI result Body Mass Index 28.0 Labs 02/23/23 20:37 03/03/23 08:50 Medications Medications Current Medications Acetaminophen (Acetaminophen 325 Mg Tablet) 650 mg PO Q6H PRN PRN Reason: Headache/Pain Mild Scale (1-3) Last Admin: 03/01/23 13:47 Dose: 650 mg Al Hydroxide/Mg Hydroxide (Magnesium Hydrox/Alum Hydrox 30 Ml Oral.Susp) 30 ml PO Q6H PRN PRN Reason: Heartburn/Nausea Last Admin: 03/04/23 23:32 Dose: 30 ml Benzocaine (Benzocaine 20 % Oral Gel 9 Gm Tube) 1 appl MUCOUS MEM TID PRN; Protocol PRN Reason: Cold Sores Last Admin: 03/02/23 09:17 Dose: 1 appl Fluticasone Propionate (Fluticasone Propionate Nasal 16 Gm [place]) 1 spray NOSTRIL-B DAILY PRN PRN Reason: Nasal Congestion Last Admin: 03/03/23 08:29 Dose: 1 spray Hydroxyzine HCl (Hydroxyzine Hcl 25 Mg Tablet) 25 mg PO Q6H PRN PRN Reason: Anxiety Last Admin: 02/25/23 05:28 Dose: 25 mg [place]so Carbonate ([place] Carbonate Er 300 Mg Tablet.Er) 600 mg PO BID PIPPA Last Admin: 03/07/23 09:01 Dose: 600 mg Magnesium Hydroxide (Milk Of Magnesia 30 Ml Oral.Susp) 30 ml PO DAILY PRN PRN Reason: Constipation Pseudoephedrine HCl (Pseudoephedrine Hcl 30 Mg Tablet) 30 mg PO Q4H PRN PRN Reason: Nasal Congestion Last Admin: 03/03/23 12:47 Dose: 30 mg Risperidone (Risperidone 1 Mg Tablet) 1 mg PO DAILY PIPPA Last Admin: 03/07/23 09:01 Dose: 1 mg Risperidone (Risperidone 2 Mg Tablet) 2 mg PO BEDTIME PIPPA Last Admin: 03/06/23 21:05 Dose: 2 mg Sodium Chloride (Sodium Chloride 0.65 % Nasal 44 Ml Sprbtl) 1 spray NOSTRIL-B Q1H PRN PRN Reason: Congestion Last Admin: 03/04/23 20:25 Dose: 1 spray Trazodone HCl (Trazodone Hcl 100 Mg Tablet) 100 mg PO BEDTIME PRN PRN Reason: Insomnia Last Admin: 03/06/23 21:05 Dose: 100 mg Allergies Allergies Allergy/AdvReac Type Severity Reaction Status Date / Time No Known Allergies Allergy Unverified 05/25/20 17:19 Assessment & Plan Assessment & Plan (1) Severe manic bipolar 1 disorder with psychotic behavior: Status: Acute Code(s): F31.2 - Bipolar disorder, current episode manic severe with psychotic features Plan Mr. Baeza is a 22 year-old male brought in to [facility] by parents as pt has been presenting as religiously preoccupied, not sleeping, acting bizarre way. In the ED, utox is negative. On the unit, pt continues to present with zoroastrianism preoccupation, internally preoccupied. Pending collateral information to get better sense if pt had prodromal symptoms of schizophrenia prior to this psychotic episode. We discussed risks, benefits and alternative treatment optio ns. Pt agrees to start risperidone 1mg po BID. PLAN: CV 15 minutes checks for safety lithium 600mg PO bid Risperidone 1mg PO daily Risperidone 2mg PO bedtime Hospital Course: 02/26: Patient calm and organized, continues to have racing thoughts. Presents with zoroastrianism delusional thought content. Believes he and came back to life. Would like something to help with the up and downs in my mood . He reports hx of days of not sleeping, excess spending, hypersexuality. T/W discussed starting a mood stabilizer such as lithium. Risks/benefits discussed. Patient agreed to starting lithium. 02/27: Pt reports feeling good today. Continues with zoroastrianism delusions. Denies AH/VH. Pt states he knows he needs help with his mind . Continue with current medication regimen. 02/28: Pt feels medications are slowing him down . He is starting to question his delusions. Reports he continues to have racing thoughts. [place] level to be drawn Friday. above reviewed agree with tx and diagnosis TA 03/01: feeling improved on medications. continue current mgmt. 03/02: very poor sleep last NOC despite PRNs. thoughts slowed and more under control with lithium, but could be slower and more controlled. labs tomorrow morning. 03/03: Patient requesting medication dose to be increased d/t continued racing thoughts. denies AH/VH. Pt stated, I don't know if I or if it was a dream . Oso to be increased to 450mg PO BID. lithium level 0.31 03/04: Pt continues to reports racing thoughts. Patient denies any side effects from medications. Oso to be increased to 600mg PO BID. 03/05: Family meeting with parents, pt and elementary school social worker present. Patient and parents agree that patient should stay hospitalized until pt is back at baseline. Pt gave parents a note which had some zoroastrianism delusional content. Risperidone dose increased with patient consent. 03/06: Pt reports feeling emotionally drained after family meeting yesterday. Pt states he makes illogical statements about Dot sometimes when I get strong emotions . Continues with some zoroastrianism delusional thought content. Continue current tx plan. 03/07: Feel better today. Reports thoughts are not racing as much. Hoping for discharge on Friday. [place] level to be drawn on Friday morning. continue with tx plan. Patient educated on: diagnosis, medication risk/benefits and therapeutic strategies Informed Consent: understands Reason for continued inpatient stay Substantial Risk for: med/psych decompensation Time Spent With Patient Time: Total time managing care of this patient today ____ minutes.
[2023-03-07] MEDS: Milk of Magnesia 30 ML ORAL.SUSP PO (20:37)
[2023-03-07] MEDS: risperiDONE 2 MG TABLET PO (20:37)
[2023-03-07 20:40] VITALS: BP 137/62; PULSE 91; TEMP 36.7; O2SAT 95
[2023-03-08 08:00] VITALS: BP 113/60; PULSE 96; RESP 18; TEMP 36.6; O2SAT 98
[2023-03-08] MEDS: Lithium Carbonate ER 300 MG TABLET.ER 600 MG PO ×2 (09:29→21:03)
[2023-03-08] MEDS: risperiDONE 1 MG TABLET PO (09:30)
--- NOTE | 2023-03-08 14:22 | HO.PSYCHPN ---
Subjective Subjective Date of Service: 03/08/23 Reason For Visit: Psychosis Subjective Notes: Conditional Voluntary Medical Problems Affecting Mental Status: No Interim History: met with patient. Discussed with Nursing. Overall as per nursing pleasant, some anxiety which is improving, attending groups. Sleep is better. With administrative underwriter he is pleasant and engaged. Some difficulty due to cochlear hearing device not working correctly. Is able to lip read. Asking appropriate questions about medication regimen and whether he needs an antipsychotic along with lithium. Reports being happy to continue with lithium but wants to avoid metabolic side effects of antipsychotics. He will discuss this with his primary treatment team after the weekend. Sleep energy and appetite better along with mood. Medication Compliance: Yes Side effects from medications: No Attending Groups: Yes Review of Systems Acute medical concerns: No Review of Systems Review of Systems Yes all other systems are reviewed and are negative Mental Status Exam Mental Status Exam Narrative: Pt is alert and oriented; behavior is cooperative, friendly and calm; patient is not in distress; dressed in casual attire; mood is described as better ; eye contact appropriate; Speech is normal rate, volume and prosody and not pressured; no psychomotor agitation/retardation present; thought process is organized and goal directed; Thought content is on tx;otherwise pertinent to relevant topics and without any delusional content, paranoid ideations or grandiosity; denies any SI/HI. There is no evidence of perceptual disturbance. Patients insight and judgment are fair. Diagnostics Vital Signs (24Hr): Vital Signs - 24 hr 03/07/23 20:40 03/08/23 08:00 Temperature 98.1 F 97.9 F Pulse Rate 91 96 Respiratory Rate 18 Blood Pressure 137/62 113/60 Pulse Oximetry 95 98 Oxygen Delivery Method Room Air Room Air BMI result Body Mass Index 28.0 Labs 02/23/23 20:37 03/03/23 08:50 Medications Medications Current Medications Acetaminophen (Acetaminophen 325 Mg Tablet) 650 mg PO Q6H PRN PRN Reason: Headache/Pain Mild Scale (1-3) Last Admin: 03/01/23 13:47 Dose: 650 mg Al Hydroxide/Mg Hydroxide (Magnesium Hydrox/Alum Hydrox 30 Ml Oral.Susp) 30 ml PO Q6H PRN PRN Reason: Heartburn/Nausea Last Admin: 03/04/23 23:32 Dose: 30 ml Benzocaine (Benzocaine 20 % Oral Gel 9 Gm Tube) 1 appl MUCOUS MEM TID PRN; Protocol PRN Reason: Cold Sores Last Admin: 03/02/23 09:17 Dose: 1 appl Fluticasone Propionate (Fluticasone Propionate Nasal 16 Gm [place]) 1 spray NOSTRIL-B DAILY PRN PRN Reason: Nasal Congestion Last Admin: 03/03/23 08:29 Dose: 1 spray Hydroxyzine HCl (Hydroxyzine Hcl 25 Mg Tablet) 25 mg PO Q6H PRN PRN Reason: Anxiety Last Admin: 02/25/23 05:28 Dose: 25 mg [place] Carbonate ([place] Carbonate Er 300 Mg Tablet.Er) 600 mg PO BID PIPPA Last Admin: 03/08/23 09:29 Dose: 600 mg Magnesium Hydroxide (Milk Of Magnesia 30 Ml Oral.Susp) 30 ml PO DAILY PRN PRN Reason: Constipation Last Admin: 03/07/23 20:37 Dose: 30 ml Pseudoephedrine HCl (Pseudoephedrine Hcl 30 Mg Tablet) 30 mg PO Q4H PRN PRN Reason: Nasal Congestion Last Admin: 03/03/23 12:47 Dose: 30 mg Risperidone (Risperidone 1 Mg Tablet) 1 mg PO DAILY PIPPA Last Admin: 03/08/23 09:30 Dose: 1 mg Risperidone (Risperidone 2 Mg Tablet) 2 mg PO BEDTIME PIPPA Last Admin: 03/07/23 20:37 Dose: 2 mg Sodium Chloride (Sodium Chloride 0.65 % Nasal 44 Ml Sprbtl) 1 spray NOSTRIL-B Q1H PRN PRN Reason: Congestion Last Admin: 03/04/23 20:25 Dose: 1 spray Trazodone HCl (Trazodone Hcl 100 Mg Tablet) 100 mg PO BEDTIME PRN PRN Reason: Insomnia Last Admin: 03/06/23 21:05 Dose: 100 mg Allergies Allergies Allergy/AdvReac Type Severity Reaction Status Date / Time No Known Allergies Allergy Unverified 05/25/20 17:19 Assessment & Plan Assessment & Plan (1) Severe manic bipolar 1 disorder with psychotic behavior: Status: Acute Code(s): F31.2 - Bipolar disorder, current episode manic severe with psychotic features Plan Mr. Baeza is a 22 year-old male brought in to [facility] ED by parents as pt has been presenting as religiously preoccupied, not sleeping, acting bizarre way. In the ED, utox is negative. On the unit, pt continues to present with muslim preoccupation, internally preoccupied. Pending collateral information to get better sense if pt had prodromal symptoms of schizophrenia prior to this psychotic episode. We discussed risks, benefits and alternative treatment options. Pt agrees to start risperidone 1mg po BID. PLAN: CV 15 minutes checks for safety lithium 600mg PO bid Risperidone 1mg PO daily Risperidone 2mg PO bedtime Hospital Course: 02/26: Patient calm and organized, continues to have racing thoughts. Presents with muslim delusional thought content. Believes he and came back to life. Would like something to help with the up and downs in my mood . He reports hx of days of not sleeping, excess spending, hypersexuality. T/W discussed starting a mood stabilizer such as lithium. Risks/benefits discussed. Patient agreed to starting lithium. 02/27: Pt reports feeling good today. Continues with muslim delusions. Denies AH/VH. Pt states he knows he needs help with his mind . Continue with current medication regimen. 02/28: Pt feels medications are slowing him down . He is starting to question his delusions. Reports he continues to have racing thoughts. [place] level to be drawn Friday. above reviewed agree with tx and diagnosis TA 03/01: feeling improved on medications. continue current mgmt. 03/02: very poor sleep last NOC despite PRNs. thoughts slowed and more under control with lithium, but could be slower and more controlled. labs tomorrow morning. 03/03: Patient requesting medication dose to be increased d/t continued racing thoughts. denies AH/VH. Pt stated, I don't know if I or if it was a dream . [place] to be increased to 450mg PO BID. lithium level 0.31 03/04: Pt continues to reports racing thoughts. Patient denies any side effects from medications. [place] to be increased to 600mg PO BID. 03/05: Family meeting with parents, pt and social work lecturer present. Patient and parents agree that patient should stay hospitalized until pt is back at baseline. Pt gave parents a note which had some muslim delusional content. Risperidone dose increased with patient consent. 03/06: Pt reports feeling emotionally drained after family meeting yesterday. Pt states he makes illogical statements about Jehovah sometimes when I get strong emotions . Continues with some muslim delusional thought content. Continue current tx plan. 03/07: Feel better today. Reports thoughts are not racing as much. Hoping for discharge on Friday. [place] level to be drawn on Friday morning. continue with tx plan. 03/08/2023: No changes to current treatment plan. He will discussed with his primary team around being on antipsychotic and lithium together. Reason for continued inpatient stay Substantial Risk for: rapid decompensation Time Spent With Patient Time: Total time managing care of this patient today ____ minutes.
[2023-03-08] MEDS: risperiDONE 2 MG TABLET PO (21:02)
[2023-03-08 21:05] VITALS: BP 124/61; PULSE 72; TEMP 36.7; O2SAT 98
[2023-03-09 08:30] VITALS: BP 110/65; PULSE 88; RESP 18; TEMP 36.7; O2SAT 98
[2023-03-09] MEDS: Lithium Carbonate ER 300 MG TABLET.ER 600 MG PO ×2 (09:26→20:48)
[2023-03-09] MEDS: risperiDONE 1 MG TABLET PO (09:27)
--- NOTE | 2023-03-09 13:24 | HO.PSYCHPN ---
Subjective Subjective Date of Service: 03/09/23 Reason For Visit: Psychosis Subjective Notes: Conditional Voluntary Interim History: met with patient. Discussed with Nursing. Pleasant, less anxiety, attending groups. Sleep is better. With copy writer he is pleasant and engaged. Happy that hearing device has been fixed. Asking appropriate questions about medication regimen and whether he needs an antipsychotic along with lithium. Reports being happy to continue with lithium but wants to avoid metabolic side effects of antipsychotics. He will discuss this with his primary treatment team after the weekend. Sleep energy and appetite better along with mood. Medication Compliance: Yes Side effects from medications: No Attending Groups: Yes Review of Systems Acute medical concerns: No Review of Systems Review of Systems Yes all other systems are reviewed and are negative Mental Status Exam Mental Status Exam Narrative: Pt is alert and oriented; behavior is cooperative, friendly and calm; patient is not in distress; dressed in casual attire; mood is described as better ; eye contact appropriate; Speech is normal rate, volume and prosody and not pressured; no psychomotor agitation/retardation present; thought process is organized and goal directed; Thought content is on tx;otherwise pertinent to relevant topics and without any delusional content, paranoid ideations or grandiosity; denies any SI/HI. There is no evidence of perceptual disturbance. Patients insight and judgment are fair. Diagnostics Vital Signs (24Hr): Vital Signs - 24 hr 03/08/23 21:05 03/09/23 08:30 Temperature 98.1 F 98.1 F Pulse Rate 72 88 Respiratory Rate 18 Blood Pressure 124/61 110/65 Pulse Oximetry 98 98 Oxygen Delivery Method Room Air Room Air BMI result Body Mass Index 28.0 Labs 02/23/23 20:37 03/03/23 08:50 Medications Medications Current Medications Acetaminophen (Acetaminophen 325 Mg Tablet) 650 mg PO Q6H PRN PRN Reason: Headache/Pain Mild Scale (1-3) Last Admin: 03/01/23 13:47 Dose: 650 mg Al Hydroxide/Mg Hydroxide (Magnesium Hydrox/Alum Hydrox 30 Ml Oral.Susp) 30 ml PO Q6H PRN PRN Reason: Heartburn/Nausea Last Admin: 03/04/23 23:32 Dose: 30 ml Benzocaine (Benzocaine 20 % Oral Gel 9 Gm Tube) 1 appl MUCOUS MEM TID PRN; Protocol PRN Reason: Cold Sores Last Admin: 03/02/23 09:17 Dose: 1 appl Fluticasone Propionate (Fluticasone Propionate Nasal 16 Gm [place]) 1 spray NOSTRIL-B DAILY PRN PRN Reason: Nasal Congestion Last Admin: 03/03/23 08:29 Dose: 1 spray Hydroxyzine HCl (Hydroxyzine Hcl 25 Mg Tablet) 25 mg PO Q6H PRN PRN Reason: Anxiety Last Admin: 02/25/23 05:28 Dose: 25 mg [place] Carbonate ([place] Carbonate Er 300 Mg Tablet.Er) 600 mg PO BID PIPPA Last Admin: 03/09/23 09:26 Dose: 600 mg Magnesium Hydroxide (Milk Of Magnesia 30 Ml Oral.Susp) 30 ml PO DAILY PRN PRN Reason: Constipation Last Admin: 03/07/23 20:37 Dose: 30 ml Pseudoephedrine HCl (Pseudoephedrine Hcl 30 Mg Tablet) 30 mg PO Q4H PRN PRN Reason: Nasal Congestion Last Admin: 03/03/23 12:47 Dose: 30 mg Risperidone (Risperidone 1 Mg Tablet) 1 mg PO DAILY PIPPA Last Admin: 03/09/23 09:27 Dose: 1 mg Risperidone (Risperidone 2 Mg Tablet) 2 mg PO BEDTIME PIPPA Last Admin: 03/08/23 21:02 Dose: 2 mg Sodium Chloride (Sodium Chloride 0.65 % Nasal 44 Ml Sprbtl) 1 spray NOSTRIL-B Q1H PRN PRN Reason: Congestion Last Admin: 03/04/23 20:25 Dose: 1 spray Trazodone HCl (Trazodone Hcl 100 Mg Tablet) 100 mg PO BEDTIME PRN PRN Reason: Insomnia Last Admin: 03/06/23 21:05 Dose: 100 mg Allergies Allergies Allergy/AdvReac Type Severity Reaction Status Date / Time No Known Allergies Allergy Unverified 05/25/20 17:19 Assessment & Plan Assessment & Plan (1) Severe manic bipolar 1 disorder with psychotic behavior: Status: Acute Code(s): F31.2 - Bipolar disorder, current episode manic severe with psychotic features Plan Mr. Baeza is a 22 year-old male brought in to [facility] [place] ED by parents as pt has been presenting as religiously preoccupied, not sleeping, acting bizarre way. In the ED, utox is negative. On the unit, pt continues to present with hoahaoism preoccupation, internally preoccupied. Pending collateral information to get better sense if pt had prodromal symptoms of schizophrenia prior to this psychotic episode. We discussed risks, benefits and alternative treatment options. Pt agrees to start risperidone 1mg po BID. PLAN: CV 15 minutes checks for safety lithium 600mg PO bid Risperidone 1mg PO daily Risperidone 2mg PO bedtime Hospital Course: 02/26: Patient calm and organized, continues to have racing thoughts. Presents with hoahaoism delusional thought content. Believes he and came back to life. Would like something to help with the up and downs in my mood . He reports hx of days of not sleeping, excess spending, hypersexuality. T/W discussed starting a mood stabilizer such as lithium. Risks/benefits discussed. Patient agreed to starting lithium. 02/27: Pt reports feeling good today. Continues with hoahaoism delusions. Denies AH/VH. Pt states he knows he needs help with his mind . Continue with current medication regimen. 02/28: Pt feels medications are slowing him down . He is starting to question his delusions. Reports he continues to have racing thoughts. [place] level to be drawn Friday. above reviewed agree with tx and diagnosis TA 03/01: feeling improved on medications. continue current mgmt. 03/02: very poor sleep last NOC despite PRNs. thoughts slowed and more under control with lithium, but could be slower and more controlled. labs tomorrow morning. 03/03: Patient requesting medication dose to be increased d/t continued racing thoughts. denies AH/VH. Pt stated, I don't know if I or if it was a dream . [place] to be increased to 450mg PO BID. lithium level 0.31 03/04: Pt continues to reports racing thoughts. Patient denies any side effects from medications. [place] to be increased to 600mg PO BID. 03/05: Family meeting with parents, pt and high school social studies teacher present. Patient and parents agree that patient should stay hospitalized until pt is back at baseline. Pt gave parents a note which had some hoahaoism delusional content. Risperidone dose increased with patient consent. 03/06: Pt reports feeling emotionally drained after family meeting yesterday. Pt states he makes illogical statements about Jehovah sometimes when I get strong emotions . Continues with some hoahaoism delusional thought content. Continue current tx plan. 03/07: Feel better today. Reports thoughts are not racing as much. Hoping for discharge on Friday. [place] level to be drawn on Friday morning. continue with tx plan. 03/09/2023: No changes to current treatment plan. He will discussed with his primary team around being on antipsychotic and lithium together. Reason for continued inpatient stay Substantial Risk for: rapid decompensation Time Spent With Patient Time: Total time managing care of this patient today ____ minutes.
[2023-03-09 20:05] VITALS: BP 134/68; PULSE 71; RESP 18; TEMP 36.6; O2SAT 97
[2023-03-09] MEDS: risperiDONE 2 MG TABLET PO (20:48)
[2023-03-10] MEDS: Lithium Carbonate ER 300 MG TABLET.ER 600 MG PO (09:33)
[2023-03-10] MEDS: risperiDONE 1 MG TABLET PO (09:34)
[2023-03-10 09:38] VITALS: BP 129/63; PULSE 89; TEMP 36.2; O2SAT 96
--- NOTE | 2023-03-10 10:53 | P.DS_ITS ---
DS: Providers Provider Date of Service: 03/10/23 Date of admission: 02/24/23 16:00 Date of discharge: 03/10/23 Primary care physician: Tammy Emanuel MD Admitting clinician: Janeth Easton Attending physician on admission: Faheem Duke Attending physician on discharge: Simba Islas Discharging clinician: Jackie Jarvis DS: Diagnosis Discharge Diagnosis (1) Severe manic bipolar 1 disorder with psychotic behavior: Status: Acute DS: Medications Discharge Medications Home Medications: Home Medications Medication Instructions Recorded Confirmed fluoxetine 20 mg capsule 20 mg PO QAM 02/24/23 02/24/23 Mental Status Exam Mental Status Exam Narrative: Pt is alert and oriented; behavior is cooperative, friendly and calm; patient is not in distress; dressed in casual attire; mood is described as good ; eye contact appropriate; Speech is normal rate, volume and prosody and not pressured; no psychomotor agitation/retardation present; thought process is organized and goal directed; Thought content is on discharge;otherwise pertinent to relevant topics and without any delusional content, paranoid ideations or grandiosity; denies any SI/HI. There is no evidence of perceptual disturbance. Patients insight and judgment are fair. Data Data Completed and Pending Completed studies during hospitalization [Text1]: 03/10/23 03/10/23 09:12 09:12 Sodium 139 Potassium 4.2 Chloride 105 Carbon Dioxide 26 Anion Gap 12 BUN 11 Creatinine 0.83 Estim Creat Clear Calc 138.8 Estimated GFR > 60 TSH 4.00 [place] 0.72 DS: Summary Hospital Course Hospital Course: Mr. Baeza is a 22 year-old male brought in to [facility] by parents as pt has been presenting as religiously preoccupied, not sleeping, acting bizarre way. In the ED, utox is negative. On the unit, pt continues to present with yazidism preoccupation, internally preoccupied. Pending collateral information to get better sense if pt had prodromal symptoms of schizophrenia prior to this psychotic episode. We discussed risks, benefits and alternative treatment options. Pt agrees to start risperidone and lithium. Patient calm and organized, reports having racing thoughts. Presents with yazidism delusional thought content. Believes he and came back to life. Would like something to help with the up and downs in my mood . He reports hx of days of not sleeping, excess spending, hypersexuality. Pt states he knows he needs help with his mind . Pt feels medications are slowing him down . He is starting to question his delusions. Patient requesting medication dose to be increased d/t continued racing thoughts. denies AH/VH. Pt stated, I don't know if I or if it was a dream . [place] to be increased to 450mg PO BID. lithium level 0.31. Pt continues to reports racing thoughts. Patient denies any side effects from medications. [place] to be increased to 600mg PO BID. Family meeting with parents, pt and criminal justice social worker present. Patient and parents agree that patient should stay hospitalized until pt is back at baseline. Pt gave parents a note which contained yazidism delusional content. Risperidone dose increased with patient consent. Pt states he makes illogical statements ab out Jehovah sometimes when I get strong emotions . Patient reports feeling better since starting the medications; reports thoughts are not racing; does not present with any yazidism delusional thought content. [place] level drawn today, 0.72. Patient and mother were educated on discharge instructions and to follow up with their outpatient providers for labs. Patient and mother expressed understanding and are looking forward to going to [place]. Plans to follow up with [facility]. Time spent discussing smoking cessation with patient: 3 to 10 minutes Status at Discharge Cognitive/behavioral status at discharge: Patient was interviewed prior to discharge and found to be fully oriented and without any SI or HI. Patient has insight and demonstrates good judgment in terms of wanting to pursue treatment. Patient is not in imminent risk of harm to self or others and has a safety plan that includes presenting to the closest ER or calling 911 if feeling unsafe. Patient has been observed closely by nursing and unit staff throughout admission; patient has not engaged in any behaviors that suggest dangerousness to self or others and has demonstrated appropriate behaviors and impulse control. Functional status at discharge: independent ambulation Overall status at discharge: patient is back to baseline Time Spent with Patient Time attestation: Total time managing care of this patient today ____ minutes. Time spent: Less than 30 minutes Discharge Plan Discharge Anticipated Discharge Date/Time: 03/10/23 14:00 Patient Disposition: Home, Self-Care Discharge Diagnosis: Bipolar d/o Referrals: [facility] [Other] - 03/24/23 2:00 pm (Appointment will be telehealth. Text will be sent to the listed phone 15 minutes prior to appointment. ) Tammy Emanuel MD [Primary Care Provider] - 03/12/23 10:15 am (PCP follow up confirmed for 03/17/23 at 10:15am) Discharge Medications: New lithium carbonate 300 mg Tablet Extended Release 600 mg PO BID 30 Days Qty: 120 0RF risperidone 1 mg Tablet 1 mg PO DAILY 30 Days Qty: 30 0RF risperidone 2 mg Tablet 2 mg PO BEDTIME 30 Days Qty: 30 0RF Discontinued fluoxetine 20 mg capsule 20 mg PO QAM Discharge Orders: Discharge Order (Routine); Ordered 03/10/23 Ordered By: Jackie Jarvis Diet: Regular diet Activity on Discharge: As tolerated Stand Alone Forms: Patient Portal Discharge page, Community Support Care Plan Goals: Maintain mood and safe behaviors Take medications as prescribed Practice coping skills Continue with outpatient providers and reach out to them as needed Health Concerns: Mood stability and behaviors Plan of Treatment: Follow up with your PCP, psychiatric provider and other outpatient providers regarding above concerns Take medications as prescribed Assessment: Patient was interviewed prior to discharge and found to be fully oriented and without any SI or HI. Patient has insight and demonstrates good judgment in terms of wanting to pursue treatment. Patient is not in imminent risk of harm to self or others and has a safety plan that includes presenting to the closest ER or calling 911 if feeling unsafe. Patient has been observed closely by nursing and unit staff throughout admission; patient has not engaged in any behaviors that suggest dangerousness to self or others and has demonstrated appropriate behaviors and impulse control. Discharge Date/Time: 03/10/23 14:23
== END 2023-03-10 14:23 | disposition home or self-care (01) | DRG 753 ==
LOC: HO.ED 02-24 14:46 → HO.PADLT16 02-24 16:04
PROVIDERS: Physician Assistant Medical; Social Worker; Admitting Provider Psychiatry & Neurology Psychiatry; Emergency Provider Emergency Medicine; PCP Pediatrics; Responsible Provider Registered Nurse; Visit Provider Psychiatry & Neurology Psychiatry
DX: F31.2 Bipolar disorder, current episode manic severe with psychotic features (principal); F90.9 Attention-deficit hyperactivity disorder, unspecified type; Z20.822 Contact with and (suspected) exposure to COVID-19
CPT/HCPCS: 36415; 80051; 80053; 80061; 80143; 80178; 80179; 80307; 81003; 82565; 82607; 82746; 83036; 83540; 84439; 84443; 84520; 85025; 87635; 93005; 99285; S9485

== ENCOUNTER → 2023-02-24 16:00 | Outpatient (BNV) | payer BC, SELFPAY | PROVIDERS: Admitting Provider Psychiatry & Neurology Psychiatry; Emergency Provider Emergency Medicine; PCP Pediatrics; Visit Provider Social Worker | DX: F31.2 Bipolar disorder, current episode manic severe with psychotic features (principal) | CPT/HCPCS: 90792; 99231; 99232; 99238 ==

== ENCOUNTER 2023-10-16 00:05 | Inpatient (IN) | payer BC, OTHER, SELFPAY ==
--- NOTE | ~2023-10-16 | XR_ITS ---
EXAMINATION: XR CHEST CLINICAL INFORMATION: Fever and cough COMPARISON: None available. TECHNIQUE: 2 views of the chest were obtained. FINDINGS: No significant abnormality is noted involving the heart, lungs, mediastinum, bony thorax or soft tissues. XR/XR chest 2V IMPRESSION: Unremarkable chest examination.
[2023-10-16 00:42] VITALS: BP 137/82; PULSE 94; RESP 16; TEMP 36.7; O2SAT 97; BMI 32.5
--- OUTSIDE RECORDS SUMMARY | 2023-10-16 00:51 | XMS_ITS | Continuity of Care Document ---
Author Name Unknown Organization [facility] Address [address] [place] [id number]- Care Team Providers Care Room Service Bellhop Name Role Phone Jenae SOLORIO, Tammy Hutchinson Primary Care Physician Encounter [facility] Date(s): 07/17/23 - 08/22/[address] [address] Attending Physician: Timothy Robles MD Admitting Physician: Timothy Robles MD Allergies, Adverse Reactions, Alerts No Known Allergies [...] Personnel Name: Jenae SOLORIO, Tammy Hutchinson Position: [facility] Physician - Pediatrics Member Role: PCP Address: Address: [address] [place] [address] Pediatrics, [place] [address]- Care Team Related Persons Name: LUIZ RANDOLPH Address: [address] [address] Name: LUIS CARLOS RANDOLPH Address: home [address] [place] [address]
--- OUTSIDE RECORDS SUMMARY | 2023-10-16 00:52 | XMS_ITS | Continuity of Care Document ---
Author Name Unknown Organization [facility] Address [address] [place] [id number]- Care Team Providers Care Steel Post Installer Supervisor Name Role Phone Jenae SOLORIO, Tammy Hutchinson Primary Care Physician Encounter [facility] [place] Date(s): 07/23/23 - 08/22/[address] [address] Attending Physician: Admtr, Ar8 Admitting Physician: Admtr, Ar8 Referring Physician: Admtr, [...] Personnel Name: Jenae SOLORIO, Tammy Hutchinson Position: [facility] Physician - Pediatrics Member Role: PCP Address: Address: [address] [place] [address] Pediatrics, [place] [address]- Care Team Related Persons Name: LUIZ RANDOLPH Address: home [address] [place] [id number] Name: LUIS CARLOS RANDOLPH Address: home [address] [place] [address]
[2023-10-16 00:54] LABS: MANUAL DIFF FLAG NO
[2023-10-16 00:56] LABS: Basophils Absolute Auto 0.1 X10*3/uL (0.0-0.2); Basophils Percent Auto 0.8 % (0-2); Eosinophils Absolute Auto 0.4 X10*3/uL (0.0-0.4); Eosinophils Percent Auto 4.2 % (0-4); Hematocrit 43.8 % (42.0-52.0); Hemoglobin 15.8 g/dl (14.0-18.0); Imm Gran Abs Auto 0.06 X10*3/uL (0.00-0.03); Imm Gran Pct Auto 0.7 % (0.0-0.4); Lymphocytes Absolute Auto 2.6 X10*3/uL (1.2-4.9); Lymphocytes Percent Auto 29.7 % (20-40); Mean Corpuscular HGB Conc 36.1 g/dl (31.0-36.0); Mean Corpuscular Hemoglobin 25.7 pg (27.0-33.0); Mean Corpuscular Volume 71.3 fL (80.0-98.0); Mean Platelet Volume 8.8 fL (9.4-12.4); Monocytes Percent Auto 10.9 % (2-11); Neutrophils Absolute Auto 4.8 x10*3/uL (2.0-8.3); Neutrophils Percent Auto 53.7 % (45-73); Platelet Count 312 X10*3/uL (160-400); Red Blood Count 6.14 X10*6/uL (4.60-5.80); White Blood Count 8.9 X10*3/uL (4.8-10.8)
[2023-10-16 00:57] LABS: Appearance Urine Cloudy; Color Urine Yellow; Glucose Urine UA Negative (Negative); Leukocyte Esterase Urine Negative (Negative); Nitrite Urine Negative (Negative); Specific Gravity - Urine 1.025 (1.005-1.025); Urine Blood Negative (Negative); Urine Ketones Negative (Negative); Urine Protein Negative (Neg-Trace)
[2023-10-16 01:00] LABS: Bacteria Urine None Seen (None Seen); Hyaline Casts Urine 0-2 /LPF (0-2); RBC Urine 0-2 /HPF (0-2); Squamous Epithelial Cell Urine 0-2 /HPF (0-2); WBC Urine 0-5 /HPF (0-5)
[2023-10-16 01:08] LABS: Amphetamine Screen Urine Not Detected (Not Detect); Barbiturates, Urine Not Detected (Not Detect); Benzodiazepines Screen Urine Not Detected (Not Detect); Cannabinoid Screen Urine Not Detected (Not Detect); Cocaine Screen Urine Not Detected (Not Detect); Fentanyl, urine Not Detected (Not Detect); Opiate Screen Urine Not Detected (Not Detect); Phencyclidine Screen Urine Not Detected (Not Detect)
[2023-10-16 01:16] LABS: Alanine Aminotransferase 46 U/L (0-40); Albumin Level 4.4 g/dL (3.5-5.0); Alkaline Phosphatase 106 U/L (39-117); Anion Gap 12 (12-20); Aspartate Amino Transferase 29 U/L (5-37); Bilirubin Total 0.4 mg/dL (0.0-1.0); Blood Urea Nitrogen 11 mg/dL (9-16); Calcium 9.4 mg/dL (8.4-10.2); Carbon Dioxide 26 mmol/L (22-29); Chloride 104 mmol/L (96-108); Creatinine Clr Calc Pharmacy 158.2; Estimated Glomerular Filt Rate > 60; Ethanol < 10 mg/dL; Glucose Random 97 mg/dL (60-115); Sodium 138 mmol/L (135-145); Total Protein 7.9 g/dL (6.5-8.0)
[2023-10-16 01:24] LABS: COVID-19 Test Negative (Negative); IDNOW Serial# 152EDE1D
[2023-10-16 01:35] LABS: TSH reflex Free T4 1.63 uIU/mL (0.32-4.0)
[2023-10-16 01:57] LABS: Lithium < 0.10 mmol/L (0.60-1.20)
[2023-10-16 02:08] LABS: Acetaminophen LAB < 3 mcg/mL (<30); Salicylate < 5.0 mg/dL (15-30)
--- NOTE | 2023-10-16 05:12 | ED.GENADULT ---
HPI - General Adult General Chief complaint: Psychiatric Symptoms Stated complaint: Psych issue Time Seen by Provider: 10/16/23 05:05 History of Present Illness HPI narrative: The patient is a 22-year-old male who has a history of bipolar disorder and has been hospitalized before. He has been on lithium. Apparently he has been off medications recently. Apparently he recently came out his gait to his parents. His parents are Jehovah's witnesses. This was very stressful. He has been having suicidal thoughts although he has not done anything to harm himself to this point. Apparently his boyfriend brought him to the emergency room today. He has had a slight dry cough for the last couple of days. Related Data Home Medications Medication Instructions Recorded Confirmed No Known Home Meds 10/16/23 10/16/23 Allergies Allergy/AdvReac Type Severity Reaction Status Date / Time No Known Allergies Allergy Unverified 05/25/20 17:19 Review of Systems Review of Systems: Yes all other systems are reviewed and are negative [facility] Social History Social History Household Members: Family Household Members Other:: parents Housing: House Alcohol intake: never Patient Tobacco Use Status: Never used Tobacco e-Cigarette/Vaping Use: Never Used Second Hand Smoke Exposure: No Advance Directives: No Advance Directives Information Provided: Yes service: No Sexual orientation: Don't Know Physical Exam ED Vital Signs: Vital Signs - 24 hr 10/16/23 00:42 Temperature 98.1 F Pulse Rate 94 Respiratory Rate 16 Blood Pressure 137/82 Pulse Oximetry 97 Oxygen Delivery Method Room Air BMI result Body Mass Index 32.5 Const Other: The patient was asleep. He woke easily with gentle stimulation. He did not seem in distress. He did have an occasional dry cough. HENMT Other: Face is symmetrical. Mucous membranes are moist. Posterior pharynx is unremarkable. Eyes Other: Pupils are round equal, conjunctivae are clear, extraocular movements intact Neck Other: No cervical adenopathy. Resp Other: No increased work of breathing. Lungs are clear bilaterally. There was no wheezing with baseline breathing but when he coughed there was some slight wheezing. Cardio Other: The patient has a regular rate and rhythm with no murmur GI Other: Abdomen is soft and nontender Skin Other: Skin is pale and dry Neuro Other: The patient was sleeping and woke to a normal mental status with gentle stimulation. He is hard of hearing and reads lips. Cranial nerves are otherwise intact. He moves his extremities normally with normal strength and coordination. He is neurologically intact aside from his difficulty with hearing. Extrem Other: No peripheral edema. Psych Other: The patient was pleasant and cooperative. Medical Decision Making Medical Decision Making MDM Narrative: The patient is a 22-year-old male with a history of bipolar disorder who has been off his medications for several weeks if not months and who has had a recent stressor of telling his parents that he is rogers. He is feeling upset and has some suicidal thoughts. He has not done anything to harm himself. He seems medically stable aside from a mild cough. He is COVID negative influenza negative. At this point I think he is medically clear for evaluation by the care team. Lab Data 10/16/23 00:47 10/16/23 00:47 Labs: Lab Results 10/16/23 10/16/23 10/16/23 Range/Units 00:34 00:47 05:22 WBC 8.9 (4.8-10.8) X10*3/uL RBC 6.14 H (4.60-5.80) X10*6/uL Hgb 15.8 (14.0-18.0) g/dl Hct 43.8 (42.0-52.0) % MCV 71.3 L (80.0-98.0) fL MCH 25.7 L (27.0-33.0) pg MCHC 36.1 H (31.0-36.0) g/dl RDW 13.0 (11.0-16.0) % Plt Count 312 (160-400) X10*3/uL MPV 8.8 L (9.4-12.4) fL Immature Gran % (Auto) 0.7 H (0.0-0.4) % Neut % (Auto) 53.7 (45-73) % Lymph % (Auto) 29.7 (20-40) % [place] % (Auto) 10.9 (2-11) % Eos % (Auto) 4.2 H (0-4) % Baso % (Auto) 0.8 (0-2) % Lymph # (Auto) 2.6 (1.2-4.9) X10*3/uL [place] # (Auto) 1.0 (0.1-1.2) X10*3/uL Eos # (Auto) 0.4 (0.0-0.4) X10*3/uL Baso # (Auto) 0.1 (0.0-0.2) X10*3/uL Abs Immat Gran (auto) 0.06 H (0.00-0.03) X10*3/uL Absolute Neuts (auto) 4.8 (2.0-8.3) x10*3/uL Absolute Nucleated RBC 0.000 (0.0-0.012) X10*3/uL Nucleated RBC % (auto) 0.0 (0.0-0.2) /100WBC Sodium 138 (135-145) mmol/L Potassium 4.0 (3.3-5.1) mmol/L Chloride 104 (96-108) mmol/L Carbon Dioxide 26 (22-29) mmol/L Anion Gap 12 (12-20) BUN 11 (9-16) mg/dL Creatinine 0.86 (0.5-1.4) mg/dL Estim Creat Clear Calc 158.2 Estimated GFR > 60 Random Glucose 97 (60-115) mg/dL Calcium 9.4 (8.4-10.2) mg/dL Total Bilirubin 0.4 (0.0-1.0) mg/dL AST 29 (5-37) U/L ALT 46 H (0-40) U/L Alkaline Phosphatase 106 (39-117) U/L Total Protein 7.9 (6.5-8.0) g/dL Albumin 4.4 (3.5-5.0) g/dL TSH 1.63 (0.32-4.0) uIU/mL Urine Color Yellow Urine Appearance Cloudy Urine pH 7.0 (5.0-9.0) Ur Specific [place] 1.025 (1.005-1.025) Urine Protein Negative (Neg-Trace) mg/dL Urine Glucose (UA) Negative (Negative) mg/dL Urine Ketones Negative (Negative) mg/dL Urine Blood Negative (Negative) Urine Nitrite Negative (Negative) Ur Leukocyte Esterase Negative (Negative) Urine RBC 0-2 (0-2) /HPF Urine WBC 0-5 (0-5) /HPF Ur Squamous Epith Cells 0-2 (0-2) /HPF Urine Bacteria None Seen (None Seen) Hyaline Casts 0-2 (0-2) /LPF Salicylates < 5.0 L (15-30) mg/dL Urine Opiates Screen Not Detected (Not Detect) Urine Fentanyl Screen Not Detected (Not Detect) Acetaminophen < 3 (<30) mcg/mL Ur Barbiturates Screen Not Detected (Not Detect) Ur Phencyclidine Scrn Not Detected (Not Detect) Ur Amphetamines Screen Not Detected (Not Detect) U Benzodiazepines Scrn Not Detected (Not Detect) [place] < 0.10 L (0.60-1.20) mmol/L Urine Cocaine Screen Not Detected (Not Detect) U Marijuana (THC) Screen Not Detected (Not Detect) Ethyl Alcohol < 10 mg/dL COVID-19 (AMARJIT) Negative (Negative) COVID-19 Clin Com See Note Influenza Type A (JOHNATHAN) Negative (Negative) Influenza Type B (JOHNATHAN) Negative (Negative) Influenza A & B Note See Note Discharge Plan Discharge Clinical Impression: Bipolar disorder Patient Disposition: Still a Patient Prescriptions: No Action No Known Home Meds Interventions: [place]-Suicide Risk Severity Scale Last Done: 10/16/23 04:46
[2023-10-16 05:46] LABS: IDNOW Serial# 08D9AD1C; Influenza A Negative (Negative); Influenza B2 Negative (Negative)
[2023-10-16 14:55] VITALS: BP 126/71; PULSE 86; RESP 20; TEMP 37.2; O2SAT 97
--- NOTE | 2023-10-16 17:13 | PC.ADMIT ---
Pt is a 22 y/o romanian speaking male admitted on a CV from the [facility] after self presenting with increased suicidal ideation. Pt reports coming out of the closet to his parents who are Tenriism and the kicked him out. Pt was then living in his car for several wks and stopped taking his medications. Pt reports no medications since mid-August. Pt s boyfriend helped him find a place to live , but he lost his job a couple of days ago and became overwhelmed and suicidal. Pt had is partner bring him to the hospital. Pt was A&O x4, speech is clear, thoughts are linier. Pts mood is depressed with a congruent affect. Pt reports that he was hearing CAH to kill self by driving car into items or jump off of the bridge. Pt reports VH of shadows in the past , but none present. Pt reports feeling safe on the unit and can seek staff if this changes. Pt has one suicide attempt at 16 via hanging with a belt. Pt reports appetite as good. Sleep is poor due to difficulty staying asleep secondary to racing thoughts. Pt has been at [facility] previously, most recent 03/2023. Pt has a hearing deficit which he wore a Cochlear Implant and hearing aid, but has neither with him. New ones were ordered due to the others being broken. Angel reports having Covid 4 weeks ago and has a residual dry cough currently. His tox screen was negative. Skin check completed. placed on 15 minute checks.
[2023-10-16 20:06] VITALS: BP 146/67; PULSE 97; RESP 18; TEMP 36.6; O2SAT 96
[2023-10-16] MEDS: traZODone HCL 50 MG TABLET PO (23:06)
[2023-10-17 06:00] VITALS: BP 145/75; PULSE 120; RESP 18; TEMP 37.7; O2SAT 97
--- NOTE | 2023-10-17 09:14 | HO.PSYADMNOT ---
HPI Date of Service: 10/17/23 Chief Complaint: SI Sources of Information: patient interviewed, chart reviewed and crisis/core team assessment reviewed HPI Subjective Notes: Rodriguez Warning and Conditional Voluntary Narrative: Patient is a 22 year old male with hx of Bipolar d/o who self presented to [facility] ER d/t suicidal ideation secondary to increased depressive symptoms and life stressors. Per crisis report, pt recently disclosed his sexual oriented to his parents who are Holiness and they kicked him out of his home. Patient has not been on his medications since August; he reported calling his [facility] provider but no one returning his calls. Patient was also let go from his job a few days ago. He reported binge drinking. Pt reports since stopping his medications his auditory and visual hallucinations have increased; also his suicidal thoughts have become overwhelming. During admission assessment, pt presents calm, cooperative and friendly. Patient stated, I came out to my parents and they kicked me out. I was living in my car for a while but then I got an apartment. I then lost my job and that made me spiral and get depressed and suicidal. I haven't taken my meds since August . Patient reports suicidal ideation with no plan. He reports auditory hallucinations of different voices that are negative to kill myself or to jump in front of cars . denies HI/VH. Pt reports he is hoping to restart on his medications and get connected with his outpatient providers. Past Psychiatric History: Inpatient: [facility] 03/2023 OP: Dr. Terrance Hawkins Medical Evaluation Reviewed: Yes [facility] Family History: maternal hx of bipolar and paternal hx of schizophrenia. Social History: Finished HS. Lives alone in an apartment. Substance History: Reports binge drinking. Trauma History: denies Diagnostics Vital Signs (24Hr): Vital Signs - 24 hr 10/16/23 14:55 10/16/23 20:06 Temperature 99.0 F 97.8 F Pulse Rate 86 97 Respiratory Rate 20 18 Blood Pressure 126/71 146/67 H Pulse Oximetry 97 96 Oxygen Delivery Method Room Air Room Air BMI result Body Mass Index 32.5 Labs 10/16/23 00:47 10/16/23 00:47 Labs: Laboratory Results - last 48 hr 10/16/23 10/16/23 10/16/23 00:34 00:47 05:22 WBC 8.9 RBC 6.14 H Hgb 15.8 Hct 43.8 MCV 71.3 L MCH 25.7 L MCHC 36.1 H RDW 13.0 Plt Count 312 MPV 8.8 L Immature Gran % (Auto) 0.7 H Neut % (Auto) 53.7 Lymph % (Auto) 29.7 [place] % (Auto) 10.9 Eos % (Auto) 4.2 H Baso % (Auto) 0.8 Lymph # (Auto) 2.6 [place] # (Auto) 1.0 Eos # (Auto) 0.4 Baso # (Auto) 0.1 Abs Immat Gran (auto) 0.06 H Absolute Neuts (auto) 4.8 Absolute Nucleated RBC 0.000 Nucleated RBC % (auto) 0.0 Sodium 138 Potassium 4.0 Chloride 104 Carbon Dioxide 26 Anion Gap 12 BUN 11 Creatinine 0.86 Estim Creat Clear Calc 158.2 Estimated GFR > 60 Random Glucose 97 Calcium 9.4 Total Bilirubin 0.4 AST 29 ALT 46 H Alkaline Phosphatase 106 Total Protein 7.9 Albumin 4.4 TSH 1.63 Urine Color Yellow Urine Appearance Cloudy Urine pH 7.0 Ur Specific [place] 1.025 Urine Protein Negative Urine Glucose (UA) Negative Urine Ketones Negative Urine Blood Negative Urine Nitrite Negative Ur Leukocyte Esterase Negative Urine RBC 0-2 Urine WBC 0-5 Ur Squamous Epith Cells 0-2 Urine Bacteria None Seen Hyaline Casts 0-2 Salicylates < 5.0 L Urine Opiates Screen Not Detected Urine Fentanyl Screen Not Detected Acetaminophen < 3 Ur Barbiturates Screen Not Detected Ur Phencyclidine Scrn Not Detected Ur Amphetamines Screen Not Detected U Benzodiazepines Scrn Not Detected [place] < 0.10 L Urine Cocaine Screen Not Detected U Marijuana (THC) Screen Not Detected Ethyl Alcohol < 10 COVID-19 (AMARJIT) Negative COVID-19 Clin Com See Note Influenza Type A (JOHNATHAN) Negative Influenza Type B (JOHNATHAN) Negative Influenza A & B Note See Note Meds/Allergies Meds Home Medications Medication Instructions Recorded Confirmed Type No Known Home Meds 10/16/23 10/16/23 History Allergies Allergies Allergy/AdvReac Type Severity Reaction Status Date / Time No Known Allergies Allergy Unverified 05/25/20 17:19 Mental Status Exam Mental Status Exam Narrative: Pt is alert and oriented; behavior is cooperative, friendly and calm; dressed in casual attire; mood is described as depressed ; eye contact appropriate; Speech is normal rate, volume and prosody and not pressured; thought process is organized and goal directed; Thought content is on tx; otherwise pertinent to relevant topics and without any delusional content, paranoid ideations or grandiosity; denies HI/VH. Pt reports suicidal ideation with no plan. Pt reports auditory hallucinations. Assessment & Plan Assessment & Plan (1) Bipolar disorder: Status: Acute Code(s): F31.9 - Bipolar disorder, unspecified Plan Patient is a 22 year old male with hx of Bipolar d/o who self presented to [facility] ER d/t suicidal ideation secondary to increased depressive symptoms and life stressors. Plan: CV 15 minute safety checks Referral to outpatient therapist Start: Risperidal 1mg PO BID [place] 300mg PO bedtime Patient educated on: diagnosis, medication risk/benefits and therapeutic strategies Informed Consent: understands Reason for continued inpatient stay Substantial Risk for: harm to self and med/psych decompensation Statement Statement: I have reviewed the history and physical and performed a pertinent examination on my patient. No changes have occurred unless specified. If the History and Physical was not performed prior to admission, the Hospitalist's service will be consulted for completing the admission physical. Time Spent With Patient Time: Total time managing care of this patient today _60___ minutes.
[2023-10-17] MEDS: Acetaminophen 325 MG TABLET 650 MG PO ×2 (10:25→19:24)
[2023-10-17] MEDS: guaiFENesin 100 MG/5 ML LIQUID PO ×2 (10:33→19:24)
[2023-10-17] MEDS: Throat Lozenge, Medicated LOZENGE 1 LOZENGE MUCOUS MEM ×2 (10:34→19:24)
[2023-10-17 18:00] VITALS: BP 145/68; PULSE 110; RESP 18; TEMP 38.2; O2SAT 96
[2023-10-17] MEDS: traZODone HCL 50 MG TABLET PO (20:59)
[2023-10-17] MEDS: risperiDONE 1 MG TABLET PO (20:59)
[2023-10-17] MEDS: Lithium Carbonate ER 300 MG TABLET.ER PO (20:59)
[2023-10-17] MEDS: Fluticasone Propionate Nasal 16 GM SPRAY 1 SPRAY NOSTRIL-B (21:04)
[2023-10-17 21:12] VITALS: TEMP 39
[2023-10-18 02:45] VITALS: TEMP 38.1
[2023-10-18 07:20] VITALS: BP 110/51; PULSE 90; RESP 14; TEMP 36.1; O2SAT 98
[2023-10-18] MEDS: risperiDONE 1 MG TABLET PO ×2 (08:14→21:07)
[2023-10-18] MEDS: Fluticasone Propionate Nasal 16 GM SPRAY 1 SPRAY NOSTRIL-B ×2 (08:14→21:11)
--- NOTE | 2023-10-18 10:37 | HO.PSYCHPN ---
Subjective Subjective Date of Service: 10/18/23 Reason For Visit: SI Subjective Notes: Conditional Voluntary Medical Problems Affecting Mental Status: No Interim History: Slept well, snoring noted. Has hearing deficit. Spiked a temp of 102.2 , normalized this morning. Noted to be coughing. Covid and flu negative 2 days ago. Medication Compliance: Yes Side effects from medications: No Review of Systems Acute medical concerns: Yes cough with fever Medical Review of Systems: changed Review of Systems: fever now accompaying cough Mental Status Exam Mental Status Exam Patient Appearance: Well Grooomed Patient Orientation: Person, Place and Time Level of Consciousness: Drowsy Patient Behavior: Appropriate Mood Description: Calm Affect Description: Constricted Patient Cognition Impaired: No Ability to Follow Directions: Fair Speech Pattern: Clear Memory Description: Intact Hallucinations: Auditory Delusions: Not Present Thought Process: Intact Thought Content: positive for Intact and positive for Suicidal Ideation (no intent or plan) Depressive Symptoms: Increased Anxiety, Thoughts of /Suicide and Loss of Energy Judgement: Fair Diagnostics Vital Signs (24Hr): Vital Signs - 24 hr 10/17/23 18:00 10/17/23 21:12 10/18/23 02:45 Temperature 100.7 F H 102.2 F H 100.6 F H Pulse Rate 110 H Respiratory Rate 18 Blood Pressure 145/68 H Pulse Oximetry 96 Oxygen Delivery Method Room Air 10/18/23 07:20 Temperature 97.0 F Pulse Rate 90 Respiratory Rate 14 Blood Pressure 110/51 L Pulse Oximetry 98 Oxygen Delivery Method Room Air BMI result Body Mass Index 32.5 Labs 10/16/23 00:47 10/16/23 00:47 Medications Medications Current Medications Acetaminophen (Acetaminophen 325 Mg Tablet) 650 mg PO Q6H PRN PRN Reason: Headache/Pain Mild Scale (1-3) Last Admin: 10/17/23 19:24 Dose: 650 mg Al Hydroxide/Mg Hydroxide (Magnesium Hydrox/Alum Hydrox 30 Ml Oral.Susp) 30 ml PO Q6H PRN PRN Reason: Heartburn/Nausea Benzocaine (Throat Lozenge, Medicated Lozenge) 1 lozenge MUCOUS MEM Q2H PRN PRN Reason: Sore Throat Last Admin: 10/17/23 19:24 Dose: 1 lozenge Fluticasone Propionate (Fluticasone Propionate Nasal 16 Gm [place]) 1 spray NOSTRIL-B BID [place] Last Admin: 10/18/23 08:14 Dose: 1 spray Guaifenesin (Guaifenesin 100 Mg/5 Ml Liquid) 5 ml PO Q4H PRN PRN Reason: Cold Symptoms Last Admin: 10/17/23 19:24 Dose: 5 ml Hydroxyzine HCl (Hydroxyzine Hcl 25 Mg Tablet) 25 mg PO Q6H PRN PRN Reason: Anxiety [place] Carbonate ([place] Carbonate Er 300 Mg Tablet.Er) 300 mg PO BEDTIME [facility] Last Admin: 10/17/23 20:59 Dose: 300 mg Magnesium Hydroxide (Milk Of Magnesia 30 Ml Oral.Susp) 30 ml PO DAILY PRN PRN Reason: Constipation Nicotine Polacrilex (Nicotine Polacrilex 2 Mg Gum) 4 mg BUCCAL Q2H PRN PRN Reason: Nicotine Cravings Risperidone (Risperidone 1 Mg Tablet) 1 mg PO BID [facility] Last Admin: 10/18/23 08:14 Dose: 1 mg Trazodone HCl (Trazodone Hcl 50 Mg Tablet) 50 mg PO BEDTIME MRX1 PRN PRN Reason: Insomnia Last Admin: 10/17/23 20:59 Dose: 50 mg Allergies Allergies Allergy/AdvReac Type Severity Reaction Status Date / Time No Known Allergies Allergy Unverified 05/25/20 17:19 Assessment & Plan Assessment & Plan (1) Bipolar disorder: Status: Acute Code(s): F31.9 - Bipolar disorder, unspecified (2) Fever: Status: Acute Code(s): R50.9 - Fever, unspecified Assessment and Plan: check CXR to rule out pneumonia given cough Plan Patient is a 22 year old male with hx of Bipolar d/o who self presented to [facility] d/t suicidal ideation secondary to increased depressive symptoms and life stressors. Plan: CV 15 minute safety checks Referral to outpatient therapist Start: Risperidal 1mg PO BID [place] 300mg PO bedtime Reason for continued inpatient stay Substantial Risk for: harm to self Time Spent With Patient Time: Total time managing care of this patient today ____ minutes.
[2023-10-18 21:00] VITALS: BP 123/60; PULSE 96; RESP 16; TEMP 36.6; O2SAT 96
[2023-10-18] MEDS: Throat Lozenge, Medicated LOZENGE 1 LOZENGE MUCOUS MEM (21:06)
[2023-10-18] MEDS: guaiFENesin 100 MG/5 ML LIQUID PO (21:06)
[2023-10-18] MEDS: Acetaminophen 325 MG TABLET 650 MG PO (21:06)
[2023-10-18] MEDS: traZODone HCL 50 MG TABLET PO (21:07)
[2023-10-18] MEDS: Lithium Carbonate ER 300 MG TABLET.ER PO (21:07)
[2023-10-19 07:55] VITALS: BP 102/50; PULSE 75; RESP 14; TEMP 35.8; O2SAT 97
[2023-10-19] MEDS: risperiDONE 1 MG TABLET PO ×2 (08:14→22:00)
[2023-10-19] MEDS: Fluticasone Propionate Nasal 16 GM SPRAY 1 SPRAY NOSTRIL-B ×2 (08:14→22:02)
--- NOTE | 2023-10-19 09:58 | HO.PSYCHPN ---
Subjective Subjective Date of Service: 10/19/23 Reason For Visit: SI Subjective Notes: Conditional Voluntary Interim History: Patient was discussed in rounds today. Records and plans were reviewed. He did not wake up on 3 attempts today. Reported to be still anxious and having depression. Continues to have auditory hallucinations. He has been having cold symptoms in the last couple of days but was improving yesterday. No changes were made today Review of Systems Review of Systems Yes Unobtainable due to mental status Mental Status Exam Mental Status Exam Narrative: Could not examine Diagnostics Vital Signs (24Hr): Vital Signs - 24 hr 10/18/23 21:00 10/19/23 07:55 Temperature 97.8 F 96.5 F L Pulse Rate 96 75 Respiratory Rate 16 14 Blood Pressure 123/60 102/50 L Pulse Oximetry 96 97 Oxygen Delivery Method Room Air Room Air BMI result Body Mass Index 32.5 Labs 10/16/23 00:47 10/16/23 00:47 Imaging Radiology Impressions: ITS Impressions Chest X-Ray 10/18/23 11:16 IMPRESSION: Unremarkable chest examination. Medications Medications Current Medications Acetaminophen (Acetaminophen 325 Mg Tablet) 650 mg PO Q6H PRN PRN Reason: Headache/Pain Mild Scale (1-3) Last Admin: 10/18/23 21:06 Dose: 650 mg Al Hydroxide/Mg Hydroxide (Magnesium Hydrox/Alum Hydrox 30 Ml Oral.Susp) 30 ml PO Q6H PRN PRN Reason: Heartburn/Nausea Benzocaine (Throat Lozenge, Medicated Lozenge) 1 lozenge MUCOUS MEM Q2H PRN PRN Reason: Sore Throat Last Admin: 10/18/23 21:06 Dose: 1 lozenge Fluticasone Propionate (Fluticasone Propionate Nasal 16 Gm [place]) 1 spray NOSTRIL-B BID [facility] Last Admin: 10/19/23 08:14 Dose: 1 spray Guaifenesin (Guaifenesin 100 Mg/5 Ml Liquid) 5 ml PO Q4H PRN PRN Reason: Cold Symptoms Last Admin: 10/18/23 21:06 Dose: 5 ml Hydroxyzine HCl (Hydroxyzine Hcl 25 Mg Tablet) 25 mg PO Q6H PRN PRN Reason: Anxiety [place] Carbonate ([place] Carbonate Er 300 Mg Tablet.Er) 300 mg PO BEDTIME [facility] Last Admin: 10/18/23 21:07 Dose: 300 mg Magnesium Hydroxide (Milk Of Magnesia 30 Ml Oral.Susp) 30 ml PO DAILY PRN PRN Reason: Constipation Nicotine Polacrilex (Nicotine Polacrilex 2 Mg Gum) 4 mg BUCCAL Q2H PRN PRN Reason: Nicotine Cravings Risperidone (Risperidone 1 Mg Tablet) 1 mg PO BID [place] Last Admin: 10/19/23 08:14 Dose: 1 mg Trazodone HCl (Trazodone Hcl 50 Mg Tablet) 50 mg PO BEDTIME MRX1 PRN PRN Reason: Insomnia Last Admin: 10/18/23 21:07 Dose: 50 mg Allergies Allergies Allergy/AdvReac Type Severity Reaction Status Date / Time No Known Allergies Allergy Unverified 05/25/20 17:19 Assessment & Plan Assessment & Plan (1) Bipolar disorder: Status: Acute Code(s): F31.9 - Bipolar disorder, unspecified (2) Fever: Status: Acute Code(s): R50.9 - Fever, unspecified Assessment and Plan: check CXR to rule out pneumonia given cough Plan Patient is a 22 year old male with hx of Bipolar d/o who self presented to [facility] d/t suicidal ideation secondary to increased depressive symptoms and life stressors. Plan: CV 15 minute safety checks Referral to outpatient therapist Start: Risperidal 1mg PO BID [place] 300mg PO bedtime 10/19: Continue current plans and regimen Reason for continued inpatient stay Substantial Risk for: med/psych decompensation Time Spent With Patient Time: Total time managing care of this patient today ____ minutes.
[2023-10-19] MEDS: guaiFENesin 100 MG/5 ML LIQUID PO ×2 (13:33→22:04)
[2023-10-19 20:40] VITALS: BP 141/65; PULSE 101; RESP 16; TEMP 37.2; O2SAT 96
[2023-10-19] MEDS: traZODone HCL 50 MG TABLET PO (22:00)
[2023-10-19] MEDS: Lithium Carbonate ER 300 MG TABLET.ER PO (22:00)
[2023-10-19] MEDS: Throat Lozenge, Medicated LOZENGE 1 LOZENGE MUCOUS MEM (22:04)
--- NOTE | 2023-10-20 09:15 | P.PNPSI_ITS ---
Subjective Subjective Date of Service: 10/20/23 Reason For Visit: SI Subjective Notes: Conditional Voluntary Interim History: Reviewed with Dr. Duke. attending groups. Pt reports he feels he is doing a little better ; pt stated, I'm still anxious but my depression feels lower. Being around other people and going to groups has been helping . Pt continues to report auditory hallucinations. denies SI/HI/VH. Increase Risperidal to 1mg PO daily and 2mg PO bedtime Increase [place] to 600mg PO bedtime Medication Compliance: Yes Side effects from medications: No Attending Groups: Yes Review of Systems Constitutional: Reports as per HPI Eyes: Reports as per HPI Reports as per HPI Cardiovascular: Reports as per HPI Respiratory: Reports as per HPI Gastrointestinal: Reports as per HPI Genitourinary: Reports as per HPI Musculoskeletal: Reports as per HPI Skin/Breast: Reports as per HPI Reports as per HPI Psychiatric: Reports as per HPI Endocrine: Reports as per HPI Hematologic/Lymphatic: Reports as per HPI Allergic/Immunologic: Reports as per HPI Mental Status Exam Mental Status Exam Narrative: Pt is alert and oriented; behavior is cooperative, friendly and calm; dressed in casual attire; mood is described as anxious ; eye contact appropriate; Speech is normal rate, volume and prosody and not pressured; thought process is organized and goal directed; Thought content is on tx; otherwise pertinent to relevant topics and without any delusional content, paranoid ideations or grandiosity; denies SI/HI/VH. Pt reports auditory hallucinations. Diagnostics Vital Signs (24Hr): Vital Signs - 24 hr 10/19/23 20:40 Temperature 98.9 F Pulse Rate 101 H Respiratory Rate 16 Blood Pressure 141/65 H Pulse Oximetry 96 Oxygen Delivery Method Room Air BMI result Body Mass Index 32.5 Labs 10/16/23 00:47 10/16/23 00:47 Imaging Radiology Impressions: ITS Impressions Chest X-Ray 10/18/23 11:16 IMPRESSION: Unremarkable chest examination. Medications Medications Current Medications Acetaminophen (Acetaminophen 325 Mg Tablet) 650 mg PO Q6H PRN PRN Reason: Headache/Pain Mild Scale (1-3) Last Admin: 10/18/23 21:06 Dose: 650 mg Al Hydroxide/Mg Hydroxide (Magnesium Hydrox/Alum Hydrox 30 Ml Oral.Susp) 30 ml PO Q6H PRN PRN Reason: Heartburn/Nausea Benzocaine (Throat Lozenge, Medicated Lozenge) 1 lozenge MUCOUS MEM Q2H PRN PRN Reason: Sore Throat Last Admin: 10/19/23 22:04 Dose: 1 lozenge Fluticasone Propionate (Fluticasone Propionate Nasal 16 Gm [place]) 1 spray NOSTRIL-B BID [facility] Last Admin: 10/19/23 22:02 Dose: 1 spray Guaifenesin (Guaifenesin 100 Mg/5 Ml Liquid) 5 ml PO Q4H PRN PRN Reason: Cold Symptoms Last Admin: 10/19/23 22:04 Dose: 5 ml Hydroxyzine HCl (Hydroxyzine Hcl 25 Mg Tablet) 25 mg PO Q6H PRN PRN Reason: Anxiety [place] Carbonate ([place] Carbonate Er 300 Mg Tablet.Er) 300 mg PO BEDTIME [facility] Last Admin: 10/19/23 22:00 Dose: 300 mg Magnesium Hydroxide (Milk Of Magnesia 30 Ml Oral.Susp) 30 ml PO DAILY PRN PRN Reason: Constipation Nicotine Polacrilex (Nicotine Polacrilex 2 Mg Gum) 4 mg BUCCAL Q2H PRN PRN Reason: Nicotine Cravings Risperidone (Risperidone 1 Mg Tablet) 1 mg PO BID [facility] Last Admin: 10/19/23 22:00 Dose: 1 mg Trazodone HCl (Trazodone Hcl 50 Mg Tablet) 50 mg PO BEDTIME MRX1 PRN PRN Reason: Insomnia Last Admin: 10/19/23 22:00 Dose: 50 mg Allergies Allergies Allergy/AdvReac Type Severity Reaction Status Date / Time No Known Allergies Allergy Unverified 05/25/20 17:19 Assessment & Plan Assessment & Plan (1) Bipolar disorder: Status: Acute Code(s): F31.9 - Bipolar disorder, unspecified Plan Patient is a 22 year old male with hx of Bipolar d/o who self presented to [facility] d/t suicidal ideation secondary to increased depressive symptoms and life stressors. Plan: CV 15 minute safety checks Referral to outpatient therapist Start: Risperidal 1mg PO BID [place] 300mg PO bedtime 10/19: Continue current plans and regimen 10/20: attending groups. Pt reports he feels he is doing a little better ; pt stated, I'm still anxious but my depression feels lower. Being around other people and going to groups has been helping . Pt continues to report auditory hallucinations. denies SI/HI/VH. Increase Risperidal to 1mg PO daily and 2mg PO bedtime Increase [place] to 600mg PO bedtime Patient educated on: diagnosis, medication risk/benefits and therapeutic strategies Informed Consent: understands Reason for continued inpatient stay Substantial Risk for: med/psych decompensation Time Spent With Patient Time: Total time managing care of this patient today _20___ minutes.
[2023-10-20] MEDS: risperiDONE 1 MG TABLET PO (10:11)
[2023-10-20] MEDS: Fluticasone Propionate Nasal 16 GM SPRAY 1 SPRAY NOSTRIL-B ×2 (10:11→21:02)
[2023-10-20 10:30] VITALS: BP 109/57; PULSE 104; TEMP 36.9; O2SAT 96
[2023-10-20 20:11] VITALS: BP 127/71; PULSE 108; RESP 16; TEMP 36.3; O2SAT 97
[2023-10-20] MEDS: Lithium Carbonate ER 300 MG TABLET.ER 600 MG PO (21:00)
[2023-10-20] MEDS: risperiDONE 2 MG TABLET PO (21:00)
[2023-10-20] MEDS: traZODone HCL 100 MG TABLET PO ×2 (21:13→22:17)
--- NOTE | 2023-10-21 08:38 | P.PNPSI_ITS ---
Subjective Subjective Date of Service: 10/21/23 Reason For Visit: SI Subjective Notes: Conditional Voluntary Interim History: Reviewed with Dr. Duke. Patient reports he feels his anxiety and depression are gradually getting better . He reports not having auditory hallucinations today. denies SI/HI/VH. Pt reports he is hoping to be discharged this week. Medication Compliance: Yes Side effects from medications: No Attending Groups: Intermittent Review of Systems Constitutional: Reports as per HPI Eyes: Reports as per HPI Reports as per HPI Cardiovascular: Reports as per HPI Respiratory: Reports as per HPI Gastrointestinal: Reports as per HPI Genitourinary: Reports as per HPI Musculoskeletal: Reports as per HPI Skin/Breast: Reports as per HPI Reports as per HPI Psychiatric: Reports as per HPI Endocrine: Reports as per HPI Hematologic/Lymphatic: Reports as per HPI Allergic/Immunologic: Reports as per HPI Mental Status Exam Mental Status Exam Narrative: Pt is alert and oriented; behavior is cooperative, friendly and calm; dressed in casual attire; mood is described as anxious ; eye contact appropriate; Speech is normal rate, volume and prosody and not pressured; thought process is organized and goal directed; Thought content is on tx; otherwise pertinent to relevant topics and without any delusional content, paranoid ideations or grandiosity; denies SI/HI/VH/AH. Diagnostics Vital Signs (24Hr): Vital Signs - 24 hr 10/20/23 10:30 10/20/23 20:11 Temperature 98.4 F 97.3 F Pulse Rate 104 H 108 H Respiratory Rate 16 Blood Pressure 109/57 L 127/71 Pulse Oximetry 96 97 Oxygen Delivery Method Room Air Room Air BMI result Body Mass Index 32.5 Labs 10/16/23 00:47 10/16/23 00:47 Imaging Radiology Impressions: ITS Impressions Chest X-Ray 10/18/23 11:16 IMPRESSION: Unremarkable chest examination. Medications Medications Current Medications Acetaminophen (Acetaminophen 325 Mg Tablet) 650 mg PO Q6H PRN PRN Reason: Headache/Pain Mild Scale (1-3) Last Admin: 10/18/23 21:06 Dose: 650 mg Al Hydroxide/Mg Hydroxide (Magnesium Hydrox/Alum Hydrox 30 Ml Oral.Susp) 30 ml PO Q6H PRN PRN Reason: Heartburn/Nausea Benzocaine (Throat Lozenge, Medicated Lozenge) 1 lozenge MUCOUS MEM Q2H PRN PRN Reason: Sore Throat Last Admin: 10/19/23 22:04 Dose: 1 lozenge Fluticasone Propionate (Fluticasone Propionate Nasal 16 Gm [place]) 1 spray NOSTRIL-B BID [facility] Last Admin: 10/20/23 21:02 Dose: 1 spray Guaifenesin (Guaifenesin 100 Mg/5 Ml Liquid) 5 ml PO Q4H PRN PRN Reason: Cold Symptoms Last Admin: 10/19/23 22:04 Dose: 5 ml Hydroxyzine HCl (Hydroxyzine Hcl 25 Mg Tablet) 25 mg PO Q6H PRN PRN Reason: Anxiety [place] Carbonate ([place] Carbonate Er 300 Mg Tablet.Er) 600 mg PO BEDTIME [facility] Last Admin: 10/20/23 21:00 Dose: 600 mg Magnesium Hydroxide (Milk Of Magnesia 30 Ml Oral.Susp) 30 ml PO DAILY PRN PRN Reason: Constipation Nicotine Polacrilex (Nicotine Polacrilex 2 Mg Gum) 4 mg BUCCAL Q2H PRN PRN Reason: Nicotine Cravings Risperidone (Risperidone 1 Mg Tablet) 1 mg PO DAILY [place] Risperidone (Risperidone 2 Mg Tablet) 2 mg PO BEDTIME [facility] Last Admin: 10/20/23 21:00 Dose: 2 mg Trazodone HCl (Trazodone Hcl 100 Mg Tablet) 100 mg PO BEDTIME MRX1 PRN PRN Reason: Insomnia Last Admin: 10/20/23 22:17 Dose: 100 mg Allergies Allergies Allergy/AdvReac Type Severity Reaction Status Date / Time No Known Allergies Allergy Unverified 05/25/20 17:19 Assessment & Plan Assessment & Plan (1) Bipolar disorder: Status: Acute Code(s): F31.9 - Bipolar disorder, unspecified Plan Patient is a 22 year old male with hx of Bipolar d/o who self presented to [facility] [place] [facility] d/t suicidal ideation secondary to increased depressive symptoms and life stressors. Plan: CV 15 minute safety checks Referral to outpatient therapist Start: Risperidal 1mg PO BID [place] 300mg PO bedtime 10/19: Continue current plans and regimen 10/20: attending groups. Pt reports he feels he is doing a little better ; pt stated, I'm still anxious but my depression feels lower. Being around other people and going to groups has been helping . Pt continues to report auditory hallucinations. denies SI/HI/VH. Increase Risperidal to 1mg PO daily and 2mg PO bedtime Increase [place] to 600mg PO bedtime 10/21: Patient reports he feels his anxiety and depression are gradually getting better . He reports not having auditory hallucinations today. denies SI/HI/VH. Pt reports he is hoping to be discharged this week. Continue current tx plan. Patient educated on: diagnosis, medication risk/benefits and therapeutic strategies Informed Consent: understands Reason for continued inpatient stay Substantial Risk for: med/psych decompensation Time Spent With Patient Time: Total time managing care of this patient today _20___ minutes.
[2023-10-21] MEDS: Fluticasone Propionate Nasal 16 GM SPRAY 1 SPRAY NOSTRIL-B ×2 (08:39→20:51)
[2023-10-21] MEDS: risperiDONE 1 MG TABLET PO (08:39)
[2023-10-21 19:44] VITALS: BP 134/73; PULSE 109; RESP 16; TEMP 36.6; O2SAT 94
[2023-10-21] MEDS: risperiDONE 2 MG TABLET PO (20:50)
[2023-10-21] MEDS: Lithium Carbonate ER 300 MG TABLET.ER 600 MG PO (20:51)
[2023-10-21] MEDS: traZODone HCL 100 MG TABLET PO ×2 (20:53→21:58)
[2023-10-22] MEDS: risperiDONE 1 MG TABLET PO (08:20)
[2023-10-22] MEDS: Fluticasone Propionate Nasal 16 GM SPRAY 1 SPRAY NOSTRIL-B ×2 (08:21→20:24)
[2023-10-22] MEDS: guaiFENesin 100 MG/5 ML LIQUID PO (08:23)
--- NOTE | 2023-10-22 08:24 | HO.PSYCHPN ---
Subjective Subjective Date of Service: 10/22/23 Reason For Visit: SI Subjective Notes: Conditional Voluntary Interim History: Reviewed with Dr. Duke. Patient reports his anxiety and depression are low. Pt reports he has not had auditory hallucinations in two days. denies SI/HI/VH/AH. attending groups. plan to d/c Friday. Patient plans on attenging LGBT+ suppotive groups when discharged. Medication Compliance: Yes Side effects from medications: No Attending Groups: Yes Review of Systems Constitutional: Reports as per HPI Eyes: Reports as per HPI Reports as per HPI Cardiovascular: Reports as per HPI Respiratory: Reports as per HPI Gastrointestinal: Reports as per HPI Genitourinary: Reports as per HPI Musculoskeletal: Reports as per HPI Skin/Breast: Reports as per HPI Reports as per HPI Psychiatric: Reports as per HPI Endocrine: Reports as per HPI Hematologic/Lymphatic: Reports as per HPI Allergic/Immunologic: Reports as per HPI Mental Status Exam Mental Status Exam Narrative: Pt is alert and oriented; behavior is cooperative, friendly and calm; dressed in casual attire; mood is described as okay ; eye contact appropriate; Speech is normal rate, volume and prosody and not pressured; thought process is organized and goal directed; Thought content is on tx; otherwise pertinent to relevant topics and without any delusional content, paranoid ideations or grandiosity; denies SI/HI/VH/AH. Diagnostics Vital Signs (24Hr): Vital Signs - 24 hr 10/21/23 19:44 Temperature 97.8 F Pulse Rate 109 H Respiratory Rate 16 Blood Pressure 134/73 Pulse Oximetry 94 Oxygen Delivery Method Room Air BMI result Body Mass Index 32.5 Labs 10/16/23 00:47 10/22/23 08:17 Imaging Radiology Impressions: ITS Impressions Chest X-Ray 10/18/23 11:16 IMPRESSION: Unremarkable chest examination. Medications Medications Current Medications Acetaminophen (Acetaminophen 325 Mg Tablet) 650 mg PO Q6H PRN PRN Reason: Headache/Pain Mild Scale (1-3) Last Admin: 10/18/23 21:06 Dose: 650 mg Al Hydroxide/Mg Hydroxide (Magnesium Hydrox/Alum Hydrox 30 Ml Oral.Susp) 30 ml PO Q6H PRN PRN Reason: Heartburn/Nausea Benzocaine (Throat Lozenge, Medicated Lozenge) 1 lozenge MUCOUS MEM Q2H PRN PRN Reason: Sore Throat Last Admin: 10/19/23 22:04 Dose: 1 lozenge Fluticasone Propionate (Fluticasone Propionate Nasal 16 Gm [place]) 1 spray NOSTRIL-B BID [facility] Last Admin: 10/22/23 08:21 Dose: 1 spray Guaifenesin (Guaifenesin 100 Mg/5 Ml Liquid) 5 ml PO Q4H PRN PRN Reason: Cold Symptoms Last Admin: 10/19/23 22:04 Dose: 5 ml Hydroxyzine HCl (Hydroxyzine Hcl 25 Mg Tablet) 25 mg PO Q6H PRN PRN Reason: Anxiety [place] Carbonate ([place] Carbonate Er 300 Mg Tablet.Er) 600 mg PO BEDTIME [facility] Last Admin: 10/21/23 20:51 Dose: 600 mg Magnesium Hydroxide (Milk Of Magnesia 30 Ml Oral.Susp) 30 ml PO DAILY PRN PRN Reason: Constipation Nicotine Polacrilex (Nicotine Polacrilex 2 Mg Gum) 4 mg BUCCAL Q2H PRN PRN Reason: Nicotine Cravings Risperidone (Risperidone 1 Mg Tablet) 1 mg PO DAILY [facility] Last Admin: 10/22/23 08:20 Dose: 1 mg Risperidone (Risperidone 2 Mg Tablet) 2 mg PO BEDTIME [facility] Last Admin: 10/21/23 20:50 Dose: 2 mg Trazodone HCl (Trazodone Hcl 100 Mg Tablet) 100 mg PO BEDTIME MRX1 PRN PRN Reason: Insomnia Last Admin: 10/21/23 21:58 Dose: 100 mg Allergies Allergies Allergy/AdvReac Type Severity Reaction Status Date / Time No Known Allergies Allergy Unverified 05/25/20 17:19 Assessment & Plan Assessment & Plan (1) Bipolar disorder: Status: Acute Code(s): F31.9 - Bipolar disorder, unspecified Plan Patient is a 22 year old male with hx of Bipolar d/o who self presented to [facility] d/t suicidal ideation secondary to increased depressive symptoms and life stressors. Plan: CV 15 minute safety checks Referral to outpatient therapist Start: Risperidal 1mg PO BID [place] 300mg PO bedtime 10/19: Continue current plans and regimen 10/20: attending groups. Pt reports he feels he is doing a little better ; pt stated, I'm still anxious but my depression feels lower. Being around other people and going to groups has been helping . Pt continues to report auditory hallucinations. denies SI/HI/VH. Increase Risperidal to 1mg PO daily and 2mg PO bedtime Increase [place] to 600mg PO bedtime 10/21: Patient reports he feels his anxiety and depression are gradually getting better . He reports not having auditory hallucinations today. denies SI/HI/VH. Pt reports he is hoping to be discharged this week. Continue current tx plan. 10/22: Patient reports his anxiety and depression are low. Pt reports he has not had auditory hallucinations in two days. denies SI/HI/VH/AH. attending groups. plan to d/c Friday. Patient plans on attenging LGBT+ suppotive groups when discharged. [place] level 0.45 on 10/22/23. Patient educated on: diagnosis and medication risk/benefits Informed Consent: understands Reason for continued inpatient stay Substantial Risk for: med/psych decompensation Time Spent With Patient Time: Total time managing care of this patient today _20___ minutes.
[2023-10-22 08:36] LABS: Lithium 0.45 mmol/L (0.60-1.20)
[2023-10-22 08:45] VITALS: BP 128/58; PULSE 68; RESP 14; TEMP 36; O2SAT 99
[2023-10-22 08:49] LABS: Anion Gap 10 (12-20); Blood Urea Nitrogen 9 mg/dL (9-16); Carbon Dioxide 28 mmol/L (22-29); Chloride 105 mmol/L (96-108); Creatinine Clr Calc Pharmacy 143.2; Estimated Glomerular Filt Rate > 60; Potassium 4.3 mmol/L (3.3-5.1); Sodium 139 mmol/L (135-145)
[2023-10-22 08:58] LABS: TSH reflex Free T4 2.22 uIU/mL (0.32-4.0)
[2023-10-22 20:00] VITALS: BP 117/74; PULSE 90; RESP 18; TEMP 36.6; O2SAT 98
[2023-10-22] MEDS: Milk of Magnesia 30 ML ORAL.SUSP PO (20:20)
[2023-10-22] MEDS: risperiDONE 2 MG TABLET PO (20:24)
[2023-10-22] MEDS: traZODone HCL 100 MG TABLET PO ×2 (20:24→21:33)
[2023-10-22] MEDS: Lithium Carbonate ER 300 MG TABLET.ER 600 MG PO (20:24)
--- NOTE | 2023-10-23 08:54 | HO.PSYCHPN ---
Subjective Subjective Date of Service: 10/23/23 Reason For Visit: SI Subjective Notes: Conditional Voluntary Interim History: Reviewed with Dr. Duke. Patient reports feeling good today; pt stated, I visited with my mom and dad yesterday, it went well. They are trying to be accepting that I'm rogers . Pt reports he feels stable and calm . sleeping well. denies SI/HI/VH/AH. Medication Compliance: Yes Side effects from medications: No Attending Groups: Yes Review of Systems Constitutional: Reports as per HPI Eyes: Reports as per HPI Reports as per HPI Cardiovascular: Reports as per HPI Respiratory: Reports as per HPI Gastrointestinal: Reports as per HPI Genitourinary: Reports as per HPI Musculoskeletal: Reports as per HPI Skin/Breast: Reports as per HPI Reports as per HPI Psychiatric: Reports as per HPI Endocrine: Reports as per HPI Hematologic/Lymphatic: Reports as per HPI Allergic/Immunologic: Reports as per HPI Mental Status Exam Mental Status Exam Narrative: Pt is alert and oriented; behavior is cooperative, friendly and calm; dressed in casual attire; mood is described as good ; eye contact appropriate; Speech is normal rate, volume and prosody and not pressured; thought process is organized and goal directed; Thought content is on tx; otherwise pertinent to relevant topics and without any delusional content, paranoid ideations or grandiosity; denies SI/HI/VH/AH. Diagnostics Vital Signs (24Hr): Vital Signs - 24 hr 10/22/23 20:00 Temperature 97.9 F Pulse Rate 90 Respiratory Rate 18 Blood Pressure 117/74 Pulse Oximetry 98 Oxygen Delivery Method Room Air BMI result Body Mass Index 32.5 Labs 10/16/23 00:47 10/22/23 08:17 Labs: Laboratory Results - last 48 hr 10/22/23 08:17 Sodium 139 Potassium 4.3 Chloride 105 Carbon Dioxide 28 Anion Gap 10 L BUN 9 Creatinine 0.95 Estim Creat Clear Calc 143.2 Estimated GFR > 60 TSH 2.22 [place] 0.45 L Imaging Radiology Impressions: ITS Impressions Chest X-Ray 10/18/23 11:16 IMPRESSION: Unremarkable chest examination. Medications Medications Current Medications Acetaminophen (Acetaminophen 325 Mg Tablet) 650 mg PO Q6H PRN PRN Reason: Headache/Pain Mild Scale (1-3) Last Admin: 10/18/23 21:06 Dose: 650 mg Al Hydroxide/Mg Hydroxide (Magnesium Hydrox/Alum Hydrox 30 Ml Oral.Susp) 30 ml PO Q6H PRN PRN Reason: Heartburn/Nausea Benzocaine (Throat Lozenge, Medicated Lozenge) 1 lozenge MUCOUS MEM Q2H PRN PRN Reason: Sore Throat Last Admin: 10/19/23 22:04 Dose: 1 lozenge Fluticasone Propionate (Fluticasone Propionate Nasal [address] [place]) 1 spray NOSTRIL-B BID [facility] Last Admin: 10/22/23 20:24 Dose: 1 spray Guaifenesin (Guaifenesin 100 Mg/5 Ml Liquid) 5 ml PO Q4H PRN PRN Reason: Cold Symptoms Last Admin: 10/22/23 08:23 Dose: 5 ml Hydroxyzine HCl (Hydroxyzine Hcl 25 Mg Tablet) 25 mg PO Q6H PRN PRN Reason: Anxiety [place] Carbonate ([place] Carbonate Er 300 Mg Tablet.Er) 600 mg PO BEDTIME [facility] Last Admin: 10/22/23 20:24 Dose: 600 mg Magnesium Hydroxide (Milk Of Magnesia 30 Ml Oral.Susp) 30 ml PO DAILY PRN PRN Reason: Constipation Last Admin: 10/22/23 20:20 Dose: 30 ml Nicotine Polacrilex (Nicotine Polacrilex 2 Mg Gum) 4 mg BUCCAL Q2H PRN PRN Reason: Nicotine Cravings Risperidone (Risperidone 1 Mg Tablet) 1 mg PO DAILY [facility] Last Admin: 10/22/23 08:20 Dose: 1 mg Risperidone (Risperidone 2 Mg Tablet) 2 mg PO BEDTIME [facility] Last Admin: 10/22/23 20:24 Dose: 2 mg Trazodone HCl (Trazodone Hcl 100 Mg Tablet) 100 mg PO BEDTIME MRX1 PRN PRN Reason: Insomnia Last Admin: 10/22/23 21:33 Dose: 100 mg Allergies Allergies Allergy/AdvReac Type Severity Reaction Status Date / Time No Known Allergies Allergy Unverified 05/25/20 17:19 Assessment & Plan Assessment & Plan (1) Bipolar disorder: Status: Acute Code(s): F31.9 - Bipolar disorder, unspecified Plan Patient is a 22 year old male with hx of Bipolar d/o who self presented to [facility] ER d/t suicidal ideation secondary to increased depressive symptoms and life stressors. Plan: CV 15 minute safety checks Referral to outpatient therapist Start: Risperidal 1mg PO BID [place] 300mg PO bedtime 10/19: Continue current plans and regimen 10/20: attending groups. Pt reports he feels he is doing a little better ; pt stated, I'm still anxious but my depression feels lower. Being around other people and going to groups has been helping . Pt continues to report auditory hallucinations. denies SI/HI/VH. Increase Risperidal to 1mg PO daily and 2mg PO bedtime Increase [place] to 600mg PO bedtime 10/21: Patient reports he feels his anxiety and depression are gradually getting better . He reports not having auditory hallucinations today. denies SI/HI/VH. Pt reports he is hoping to be discharged this week. Continue current tx plan. 10/22: Patient reports his anxiety and depression are low. Pt reports he has not had auditory hallucinations in two days. denies SI/HI/VH/AH. attending groups. plan to d/c Friday. Patient plans on attenging LGBT+ suppotive groups when discharged. [place] level 0.45 on 10/22/23. 10/23: Patient reports feeling good today; pt stated, I visited with my mom and dad yesterday, it went well. They are trying to be accepting that I'm rogers . Pt reports he feels stable and calm . sleeping well. denies SI/HI/VH/AH. Patient educated on: diagnosis, medication risk/benefits and therapeutic strategies Informed Consent: understands Reason for continued inpatient stay Substantial Risk for: stable for discharge Time Spent With Patient Time: Total time managing care of this patient today _20___ minutes.
[2023-10-23] MEDS: risperiDONE 1 MG TABLET PO (09:53)
[2023-10-23] MEDS: Fluticasone Propionate Nasal 16 GM SPRAY 1 SPRAY NOSTRIL-B ×2 (09:54→21:29)
[2023-10-23] MEDS: guaiFENesin 100 MG/5 ML LIQUID PO (10:00)
[2023-10-23 10:41] VITALS: BMI 29.3
[2023-10-23] MEDS: Magnesium Hydrox/Alum Hydrox 30 ML ORAL.SUSP PO (21:14)
[2023-10-23] MEDS: traZODone HCL 100 MG TABLET PO ×2 (21:30→22:28)
[2023-10-23] MEDS: risperiDONE 2 MG TABLET PO (21:30)
[2023-10-23] MEDS: Lithium Carbonate ER 300 MG TABLET.ER 600 MG PO (21:30)
[2023-10-23 21:34] VITALS: BP 116/64; PULSE 90; RESP 16; TEMP 36.7; O2SAT 96
[2023-10-24 07:10] VITALS: BP 110/62; PULSE 68; RESP 14; TEMP 36.2; O2SAT 95
[2023-10-24] MEDS: Fluticasone Propionate Nasal 16 GM SPRAY 1 SPRAY NOSTRIL-B (09:17)
[2023-10-24] MEDS: risperiDONE 1 MG TABLET PO (09:18)
--- NOTE | 2023-10-24 14:16 | P.DS_ITS ---
DS: Providers Provider Date of Service: 10/24/23 Date of admission: 10/16/23 13:39 Date of discharge: 10/24/23 Primary care physician: Unknown Physician Admitting clinician: Jackie Jarvis Attending physician on admission: Faheem Duke Attending physician on discharge: Faheem Duke Discharging clinician: Jackie Jarvis DS: Diagnosis Discharge Diagnosis (1) Bipolar disorder: Status: Acute DS: Medications Discharge Medications Home Medications: Previous Rx's Medication Instructions Recorded risperidone 3 mg tablet 3 mg PO BEDTIME 30 days #30 tabs 10/23/23 lithium carbonate 300 mg 600 mg (2 x 300 mg) PO BEDTIME 30 10/24/23 tablet,extended release days #60 tabs trazodone 100 mg tablet 100 mg PO BEDTIME MRX1 PRN 10/24/23 Insomnia 30 days #60 tabs Mental Status Exam Mental Status Exam Narrative: Pt is alert and oriented; behavior is cooperative, friendly and calm; dressed in casual attire; mood is described as good ; eye contact appropriate; Speech is normal rate, volume and prosody and not pressured; thought process is organized and goal directed; Thought content is on discharge; otherwise pertinent to relevant topics and without any delusional content, paranoid ideations or grandiosity; denies SI/HI/VH/AH. Data Imaging Diagnostic Imaging Impressions Chest X-Ray 10/18/23 11:16 IMPRESSION: Unremarkable chest examination. DS: Summary Hospital Course Hospital Course: Patient is a 22 year old male with hx of Bipolar d/o who self presented to [facility] ER d/t suicidal ideation secondary to increased depressive symptoms and life stressors. Per crisis report, pt recently disclosed his sexual oriented to his parents who are [employer] and they kicked him out of his home. Patient has not been on his medications since August; he reported calling his [facility] provider but no one returning his calls. Patient was also let go from his job a few days ago. He reported binge drinking. Pt reports since stopping his medications his auditory and visual hallucinations have increased; also his suicidal thoughts have become overwhelming. During admission assessment, pt presents calm, cooperative and friendly. Patient stated, I came out to my parents and they kicked me out. I was living in my car for a while but then I got an apartment. I then lost my job and that made me spiral and get depressed and suicidal. I haven't taken my meds since August . Patient reports suicidal ideation with no plan. He reports auditory hallucinations of different voices that are negative to kill myself or to jump in front of cars . denies HI/VH. Pt reports he is hoping to restart on his medications and get connected with his outpatient providers. During hospital course, Start: Risperidal 1mg PO BID [place] 300mg PO bedtime attending groups. Pt reports he feels he is doing a little better ; pt stated, I'm still anxious but my depression feels lower. Being around other people and going to groups has been helping . Pt continues to report auditory hallucinations. denies SI/HI/VH. Increase Risperidal to 1mg PO daily and 2mg PO bedtime Increase [place] to 600mg PO bedtime Patient reports he feels his anxiety and depression are gradually getting better . He reports not having auditory hallucinations today. denies SI/HI/VH. Pt reports he is hoping to be discharged this week. Continue current tx plan. Patient reports his anxiety and depression are low. Pt reports he has not had auditory hallucinations in two days. denies SI/HI/VH/AH. attending groups. plan to d/c Friday. Patient plans on attending LGBT+ supportive groups when discharged. [place] level 0.45 on 10/22/23. Patient reports feeling good today; pt stated, I visited with my mom and dad yesterday, it went well. They are trying to be accepting that I'm rogers . Pt reports he feels stable and calm . sleeping well. denies SI/HI/VH/AH. Pt plans on following up with his outpatient providers. Time spent discussing smoking cessation with patient: 3 to 10 minutes Status at Discharge Cognitive/behavioral status at discharge: Patient was interviewed prior to discharge and found to be fully oriented and without any SI or HI. Patient has insight and demonstrates good judgment in terms of wanting to pursue treatment. Patient has a safety plan that includes presenting to the closest ER or calling 911 if feeling unsafe. Functional status at discharge: independent ambulation Overall status at discharge: patient is back to baseline Time Spent with Patient Time attestation: Total time managing care of this patient today _30___ minutes. Time spent: Less than 30 minutes Discharge Plan Discharge Anticipated Discharge Date/Time: 10/24/23 11:00 Patient Disposition: Home, Self-Care Discharge Diagnosis: Bipolar d/o Referrals: [facility] [Other] - 1 Week (A referral has been submitted for their vocational program to assist you with seeking employment and any additional vocational training you may be interested in. They should be calling you within a week but if you have not heard from them after one week please call the above number M-F 9am-4pm. ) Therapy Intake:Irasema Calvillo([facility]) [Other] - 10/31/23 10:00 am (Appointment is in person at the office in [place]; when you have your appointment with Irasema ask to be connected with a Community Support Program (CSP) or access navigator to assist with applying for low income housing ) Psychiatrist: Terrance Sinha ([facility]) [Other] - 11/21/23 9:20 am (Telehealth appointment ) Department of Transitional Assistance (D[employer]) SNAP benefits [Other] - 1 Week (You can apply for [place] SNAP (food stamps) benefits online at [email or web address] ) Tammy Emanuel MD [Physician] - 11/04/23 8:30 am (PCP is Tammy Emanuel - follow up appt scheduled for 11/04/23 @ 830am) Discharge Medications: New risperidone 3 mg tablet 3 mg PO BEDTIME 30 Days Qty: 30 0RF lithium carbonate 300 mg Tablet Extended Release 600 mg PO BEDTIME 30 Days Qty: 60 0RF trazodone 100 mg Tablet 100 mg PO BEDTIME MRX1 PRN (Reason: Insomnia) 30 Days Qty: 60 0RF Discharge Orders: Discharge Order (Routine); Ordered 10/24/23 Ordered By: Jackie Jarvis Diet: Regular diet Activity on Discharge: As tolerated Stand Alone Forms: Patient Portal Discharge page, Community Support Care Plan Goals: Maintain mood and safe behaviors Take medications as prescribed Practice coping skills Continue with outpatient providers and reach out to them as needed Health Concerns: Mood stability and behaviors Plan of Treatment: Follow up with your PCP, psychiatric provider and other outpatient providers regarding above concerns Take medications as prescribed Assessment: Patient was interviewed prior to discharge and found to be fully oriented and without any SI or HI. Patient has insight and demonstrates good judgment in terms of wanting to pursue treatment. Patient has a safety plan that includes presenting to the closest ER or calling 911 if feeling unsafe. Discharge Date/Time: 10/24/23 11:07
== END 2023-10-24 11:07 | disposition home or self-care (01) | DRG 753 ==
LOC: HO.ED 06:02 → HO.PADLT16 13:45
PROVIDERS: Emergency Medicine; Admitting Provider Psychiatry & Neurology Psychiatry; Emergency Provider Emergency Medicine; Responsible Provider Registered Nurse; Visit Provider Psychiatry & Neurology Psychiatry
DX: F31.9 Bipolar disorder, unspecified (principal); R45.851 Suicidal ideations; Z91.148 Patient's other noncompliance with medication regimen for other reason; Z20.822 Contact with and (suspected) exposure to COVID-19; Z23 Encounter for immunization; Z79.899 Other long term (current) drug therapy
CPT/HCPCS: 36415; 71046; 80051; 80053; 80143; 80178; 80179; 80307; 81001; 82565; 84443; 84520; 85025; 87502; 87635; 90686; 99285; S9485

== ENCOUNTER → 2023-10-16 13:39 | Outpatient (BNV) | payer BC, MEDICAID, SELFPAY | PROVIDERS: Admitting Provider Psychiatry & Neurology Psychiatry; Emergency Provider Emergency Medicine; Responsible Provider Registered Nurse; Visit Provider Psychiatry & Neurology Psychiatry | DX: F31.4 Bipolar disorder, current episode depressed, severe, without psychotic features (principal); R50.9 Fever, unspecified | CPT/HCPCS: 90792; 99231; 99232; 99238 ==